=== PATIENT | female | born 1965 | race Caucasian/White ===

== ENCOUNTER 2016-06-04 07:46 | Emergency (ER) | payer MEDICAID ==
[2016-06-04] MEDS ORDERED: OXYCODONE-ACETAMINOPHEN 5-325 MG TABLET PO ONE ×2 (08:10→09:05)
--- NOTE | 2016-06-04 08:34 | ER Document Report ---
ED General - General Chief Complaint: Wrist Injury Stated Complaint: LEFT ARM PAIN Mode of Arrival: Medic Information source: Patient, Emergency Med Personnel Notes: Patient presents to the emergency department complaining of left wrist pain. Patient reports she had trouble sleeping all night. She was up this morning feeding her fish when she fell off her stool. Patient crying. Slurring her words, denies recent medication. EMS has splinted her wrist. Patient also complains of low back pain and abdominal pain. Patient reports she did not hit her head she did not have a change in LOC. No complaints of vomiting diarrhea. TRAVEL OUTSIDE OF THE [place] IN LAST 30 DAYS: No - HPI Onset: This morning Onset/Duration: Persistent Quality of pain: Achy, Pressure, Sharp Severity: Severe Pain Level: 5 Associated symptoms: None Exacerbated by: Movement Relieved by: Denies Similar symptoms previously: No Recently seen / treated by doctor: No - Related Data Allergies/Adverse Reactions: acetaminophen [From Tylenol] Allergy (Intermediate, Verified 04/06/16 19:03) Hives codeine [Codeine] Allergy (Unknown, Verified 04/06/16 19:03) ibuprofen [Ibuprofen] Allergy (Unknown, Verified 04/06/16 19:03) Penicillins Allergy (Unknown, Verified 04/06/16 19:03) sulfamethoxazole [From Bactrim] Allergy (Unknown, Verified 04/06/16 19:03) trimethoprim [From Bactrim] Allergy (Unknown, Verified 04/06/16 19:03) clarithromycin [From Biaxin] Allergy (Verified 04/06/16 19:03) hydrocodone [Hydrocodone] Allergy (Verified 04/06/16 19:03) ketorolac tromethamine [From Toradol] Allergy (Verified 04/06/16 19:03) morphine [Morphine] Allergy (Verified 04/06/16 19:03) Past Medical History - General Information source: Patient - Social History Smoking Status: Current Every Day Smoker Cigarette use (# per day): Yes - 1 ppd Frequency of alcohol use: None Drug Abuse: None Lives with: Family - father in law Family History: Reviewed & Not Pertinent - Past Medical History Cardiac Medical History: Reports: Hx Coronary Artery Disease - high chol , Hx Hypertension - no home meds Denies: Hx Heart Attack Pulmonary Medical History: Reports: Hx Bronchitis Denies: Hx Asthma, Hx COPD, Hx Pneumonia Neurological Medical History: Reports: Hx Cerebrovascular Accident - 2005, Hx Seizures - Musculoskeltal Medical History: Denies Hx Arthritis Psychiatric Medical History: Reports: Hx Anxiety - panic attacks, Hx Bipolar Disorder, Hx Depression Traumatic Medical History: Reports: Hx Fractures Past Surgical History: Reports: Hx Hysterectomy, Hx Orthopedic Surgery - rbka, Hx Tubal Ligation, Hx Vascular Surgery - Right leg arterial clot removal - Immunizations Immunizations up to date: No Hx Diphtheria, Pertussis, Tetanus Vaccination: Yes Review of Systems - Review of Systems Notes: Review HPI for review of systems., All other systems negative Physical Exam - Vital signs Vitals: Temp Pulse Resp BP Pulse Ox 97.7 F 71 18 127/66 H 99 06/04/16 08:10 06/04/16 08:10 06/04/16 08:10 06/04/16 08:10 06/04/16 08:10 - Notes Notes: PHYSICAL EXAMINATION: GENERAL: looks older than her age, crying, nontoxic looking HEAD: Atraumatic, normocephalic. EYES: Pupils equal round , extraocular movements intact, sclera anicteric, conjunctiva are normal. ENT: nares patent, . Moist mucous membranes. NECK: Normal range of motion, supple without lymphadenopathy LUNGS: CTAB and equal. No wheezes rales or rhonchi. HEART: Regular rate and rhythm without murmurs ABDOMEN: Soft, generalized tenderness. No guarding, no rebound EXTREMITIES: Normal range of motion, no pitting edema. No cyanosis. good radial pulse and cap refill to left wrist, no obvious deformity. Right BKA NEUROLOGICAL: Cranial nerves grossly intact. Normal sensory/motor PSYCH: Crying SKIN: Warm, Dry, normal turgor, no rashes or lesions noted Course - Re-evaluation Re-evalutation: 06/04/16 08:32 Patient observed sitting up, digging through her purse with her left wrist without crying without problems. Percocet cancelled, waiting for xray. 06/04/16 Pt was instructed on fracture. Dr Pillai's office contacted, pt's appointment had been canceled by her caregiver. I asked the office not to cancel the appointment and it was scheduled for 1115 today. Patient was instructed on pain medication. She reports 5 mg Percocet will not touch her pain. I instructed her to consult Dr. Pillai for further pain medication patient was also instructed to go directly to Dr. Pillai's office. sugartong splint and sling placed. She was very emotional, emotional support given patient escorted to the lobby where her ride picked her up. - Vital Signs Vital signs: Temp Pulse Resp BP Pulse Ox 97.6 F 62 18 113/80 97 06/04/16 09:59 06/04/16 09:59 06/04/16 09:59 06/04/16 09:59 06/04/16 09:59 - Diagnostic Test Radiology reviewed: Image reviewed, Reports reviewed - fx ulna/radius Procedures - Immobilization Left Wrist Pre-Proc Neuro Vasc Exam: Normal Immobilizer type: Sugar tong Performed by: PCT Post-Proc Neuro Vasc Exam: Unchanged from pre-exam Alignment checked and good: Yes Discharge - Discharge Clinical Impression: Left wrist pain, elevated blood pressure Radius/ulna fracture Qualifiers: Encounter type: initial encounter Fracture type: closed Laterality: left Qualified Code(s): S52.502A - Unspecified fracture of the lower end of left radius, initial encounter for closed fracture Condition: Stable Disposition: HOME, SELF-CARE Instructions: Ice & Elevation ([facility]), Fractured Radius and Ulna ([facility]), Splint Pending Casting ([facility]), Oral Narcotic Medication ([facility]) Additional Instructions: *You have been evaluated for left wrist pain, fractured ulna/radius *Maintain the splint and sling *Rest/Ice/Elevate *Follow up with Dr Pillai today at 1115 *Take medication as prescribed *Return to ED for worsening condition, changes, needs Prescriptions: Oxycodone HCl/Acetaminophen [Percocet 5-325 mg Tablet] 1 - 2 tab PO ASDIR PRN # 15 tablet PRN Reason: Forms: Elevated Blood Pressure, Smoking Cessation Education Referrals: RADHA ANTHONY MD [Primary Care Provider] - Follow up as needed ROSE PILLAI MD [ACTIVE STAFF] - 06/04/16 11:15 am
[2016-06-04 10:01] VITALS: BP 113/80
== END 2016-06-04 09:59 | disposition home or self-care (01) ==
LOC: ER 07:46
PROC: 2W3DX1Z Immobilization of Left Lower Arm using Splint (ICD-10-PCS; principal; 2016-06-04)
DX: S52.502A Unspecified fracture of the lower end of left radius, initial encounter for closed fracture (principal); S09.90XA Unspecified injury of head, initial encounter; M79.602 Pain in left arm; M54.5 Low back pain; R10.9 Unspecified abdominal pain; W07.XXXA Fall from chair, initial encounter; F17.210 Nicotine dependence, cigarettes, uncomplicated
CPT/HCPCS: 70450; 99284

== ENCOUNTER 2016-06-05 13:23 | Emergency (ER) | payer MEDICAID ==
--- NOTE | 2016-06-05 13:31 | ER Document Report ---
ED Medical Screen (RME) - General Stated Complaint: LEFT ARM STRAIN Mode of Arrival: Medic Information source: Patient Notes: Patient presents to the EMS with complaints of chronic abdominal pain. Patient was evaluated and treated here yesterday for fracture of the left wrist. Patient received prescription for Percocet yesterday but has already gone through them. TRAVEL OUTSIDE OF THE [place] IN LAST 30 DAYS: No - Related Data Allergies/Adverse Reactions: acetaminophen [From Tylenol] Allergy (Intermediate, Verified 04/06/16 19:03) Hives codeine [Codeine] Allergy (Unknown, Verified 04/06/16 19:03) ibuprofen [Ibuprofen] Allergy (Unknown, Verified 04/06/16 19:03) Penicillins Allergy (Unknown, Verified 04/06/16 19:03) sulfamethoxazole [From Bactrim] Allergy (Unknown, Verified 04/06/16 19:03) trimethoprim [From Bactrim] Allergy (Unknown, Verified 04/06/16 19:03) clarithromycin [From Biaxin] Allergy (Verified 04/06/16 19:03) hydrocodone [Hydrocodone] Allergy (Verified 04/06/16 19:03) ketorolac tromethamine [From Toradol] Allergy (Verified 04/06/16 19:03) morphine [Morphine] Allergy (Verified 04/06/16 19:03) Past Medical History - Past Medical History Cardiac Medical History: Reports: Hx Coronary Artery Disease - high chol , Hx Hypertension - no home meds Denies: Hx Heart Attack Pulmonary Medical History: Reports: Hx Bronchitis Denies: Hx Asthma, Hx COPD, Hx Pneumonia Neurological Medical History: Reports: Hx Cerebrovascular Accident - 2005, Hx Seizures - Musculoskeltal Medical History: Denies Hx Arthritis Psychiatric Medical History: Reports: Hx Anxiety - panic attacks, Hx Bipolar Disorder, Hx Depression Traumatic Medical History: Reports: Hx Fractures Past Surgical History: Reports: Hx Hysterectomy, Hx Orthopedic Surgery - rbka, Hx Tubal Ligation, Hx Vascular Surgery - Right leg arterial clot removal - Immunizations Immunizations up to date: No Hx Diphtheria, Pertussis, Tetanus Vaccination: Yes
[2016-06-05 14:16] LABS: ABSOLUTE LYMPHOCYTES (AUTO) 2.1 10^3/uL (0.5-4.7); HEMATOCRIT 42.6 % (36.0-47.0); HEMOGLOBIN 13.2 g/dL (12.0-15.5)
[2016-06-05 14:46] LABS: ALANINE AMINOTRANSFERASE 14 U/L (9-52); ALBUMIN 4.5 g/dL (3.5-5.0); ALKALINE PHOSPHATASE 75 U/L (38-126); ANION GAP 11 (5-19); ASPARTATE AMINO TRANSFERASE 24 U/L (14-36); BILIRUBIN,TOTAL 0.3 mg/dL (0.2-1.3); BLOOD UREA NITROGEN 12 mg/dL (7-20); CALCIUM 10.1 mg/dL (8.4-10.2); CARBON DIOXIDE 30 mmol/L (22-30); CHLORIDE 101 mmol/L (98-107); CREATININE RESULT 0.65 mg/dL (0.52-1.25); GLUCOSE 91 mg/dL (75-110); LIPASE 76.1 U/L (23-300); POTASSIUM 4.5 mmol/L (3.6-5.0); SODIUM 142.2 mmol/L (137-145); TOTAL PROTEIN 6.9 g/dL (6.3-8.2)
[2016-06-05 14:49] LABS: ABSOLUTE MONOCYTES (AUTO) 0.7 10^3/uL (0.1-1.4); ABSOLUTE NEUT (AUTO) 7.9 10^3/uL (1.7-8.2); BASOPHILS % (AUTO) 0.2 % (0-2); EOSINOPHILS % (AUTO) 0.1 % (0-6); LYMPHOCYTES % (AUTO) 19.4 % (13-45); MEAN CORPUSCULAR HEMOGLOBIN 30.8 pg (27.0-33.4); MEAN CORPUSCULAR VOLUME 100 fl (80-97); MONOCYTES % (AUTO) 6.6 % (3-13); RED BLOOD COUNT 4.28 10^6/uL (3.72-5.28); RED CELL DISTRIBUTION WIDTH 14.7 % (11.5-14.0); SEGMENTED NEUTROPHILS % (AUTO) 73.7 % (42-78); WHITE BLOOD COUNT 10.8 10^3/uL (4.0-10.5)
--- NOTE | 2016-06-05 16:37 | ER Document Report ---
ED General - General Chief Complaint: Arm Pain Stated Complaint: LEFT ARM STRAIN Mode of Arrival: Medic Notes: The patient is a 50-year-old female, past medical history chronic abdominal pain , opioid dependence, presents with her usual lower abdominal pain for the past several days. She says it is difficult to urinate and she has had this multiple times in the past. In addition, she is having left wrist pain after she fractured her wrist yesterday. She was given a prescription of 15 Percocet and followed up with the orthopedic surgeon yesterday. She took all her Percocet and is requesting more Percocet and Dilaudid. She has oxycodones at home. She denies numbness, tingling, back pain, nausea, vomiting, difficulty walking, saddle anesthesia, fevers or flank pain. TRAVEL OUTSIDE OF THE [place] IN LAST 30 DAYS: No - Related Data Allergies/Adverse Reactions: acetaminophen [From Tylenol] Allergy (Intermediate, Verified 06/05/16 13:35) Hives codeine [Codeine] Allergy (Unknown, Verified 06/05/16 13:35) ibuprofen [Ibuprofen] Allergy (Unknown, Verified 06/05/16 13:35) Penicillins Allergy (Unknown, Verified 06/05/16 13:35) sulfamethoxazole [From Bactrim] Allergy (Unknown, Verified 06/05/16 13:35) trimethoprim [From Bactrim] Allergy (Unknown, Verified 06/05/16 13:35) clarithromycin [From Biaxin] Allergy (Verified 06/05/16 13:35) hydrocodone [Hydrocodone] Allergy (Verified 06/05/16 13:35) ketorolac tromethamine [From Toradol] Allergy (Verified 06/05/16 13:35) morphine [Morphine] Allergy (Verified 06/05/16 13:35) Past Medical History - General Information source: Patient - Social History Smoking Status: Current Every Day Smoker Chew tobacco use (# tins/day): No Frequency of alcohol use: None Drug Abuse: None Family History: Reviewed & Not Pertinent Patient has suicidal ideation: No Patient has homicidal ideation: No - Past Medical History Cardiac Medical History: Reports: Hx Coronary Artery Disease - high chol , Hx Hypertension - no home meds Denies: Hx Heart Attack Pulmonary Medical History: Reports: Hx Bronchitis Denies: Hx Asthma, Hx COPD, Hx Pneumonia Neurological Medical History: Reports: Hx Cerebrovascular Accident - 2005, Hx Seizures - Renal/ Medical History: Denies: Hx Peritoneal Dialysis Musculoskeltal Medical History: Denies Hx Arthritis Psychiatric Medical History: Reports: Hx Anxiety - panic attacks, Hx Bipolar Disorder, Hx Depression Traumatic Medical History: Reports: Hx Fractures Past Surgical History: Reports: Hx Hysterectomy, Hx Orthopedic Surgery - rbka, Hx Tubal Ligation, Hx Vascular Surgery - Right leg arterial clot removal - Immunizations Immunizations up to date: No Hx Diphtheria, Pertussis, Tetanus Vaccination: Yes Review of Systems - Review of Systems Notes: REVIEW OF SYSTEMS: CONSTITUTIONAL: -fevers, -chills EENT: -eye pain, -difficulty swallowing, -nasal congestion CARDIOVASCULAR:-chest pain, -syncope. RESPIRATORY: -cough, -SOB GASTROINTESTINAL: +abdominal pain, -nausea, -vomiting, -diarrhea GENITOURINARY: -dysuria, -hematuria MUSCULOSKELETAL: -back pain, -neck pain, +left wrist pain SKIN: -rash or skin lesions. HEMATOLOGIC: -easy bruising or bleeding. LYMPHATIC: -swollen, enlarged glands. NEUROLOGICAL: -altered mental status or loss of consciousness, -headache, - neurologic symptoms PSYCHIATRIC: -anxiety, -depression. ALL OTHER SYSTEMS REVIEWED AND NEGATIVE. Physical Exam - Notes Notes: PHYSICAL EXAMINATION: GENERAL: Well-appearing, well-nourished. Crying. HEAD: Atraumatic, normocephalic. EYES: Pupils equal round and reactive to light, extraocular movements intact, sclera anicteric, conjunctiva are normal. ENT: nares patent, oropharynx clear without exudates. Moist mucous membranes. NECK: Normal range of motion, supple without lymphadenopathy LUNGS: Breath sounds clear to auscultation bilaterally and equal. No wheezes rales or rhonchi. HEART: Regular rate and rhythm without murmurs ABDOMEN: Soft, nontender, normoactive bowel sounds. No guarding, no rebound. No masses appreciated. EXTREMITIES: Left wrist in splint. Brisk capillary refill in left hand and no numbness or tingling. Normal range of motion, no pitting or edema. No cyanosis. NEUROLOGICAL: Cranial nerves grossly intact. Normal speech, normal gait. Normal sensory, motor, and reflex exams. PSYCH: Crying, screaming SKIN: Warm, Dry, normal turgor, no rashes or lesions noted. Course - Re-evaluation Re-evalutation: Patient has multiple visits for this same abdominal pain. She refused to provide a urine sample. Straight catheter offered, but she refused. She has followed up with orthopedics yesterday for her left wrist fracture. Looking through multiple prior visits, patient has been instructed that no opiates would be provided for chronic pain. A copy of her certified letter that was provided to her 04/2013 was once again given to the patient. Offered other pain relief modalities for her wrist pain, but patient stood up and stomped out of the emergency room screaming. No emergent issues identified at this time. Patient left prior to any discharge/AMA paperwork. - Laboratory Result Diagrams: 06/05/16 13:45 06/05/16 13:45 Laboratory results interpreted by me: 06/05/16 13:45 WBC 10.8 H MCV 100 H MCHC 31.0 L RDW 14.7 H Discharge - Discharge Clinical Impression: Chronic abdominal pain Condition: Stable Disposition: AGAINST MEDICAL ADVICE Referrals: RADHA ANTHONY MD [Primary Care Provider] - Follow up as needed
== END 2016-06-05 15:00 | disposition left against medical advice (07) ==
LOC: ER 13:23
DX: S62.102D Fracture of unspecified carpal bone, left wrist, subsequent encounter for fracture with routine healing (principal); M25.532 Pain in left wrist; X58.XXXD Exposure to other specified factors, subsequent encounter; G89.29 Other chronic pain; R10.30 Lower abdominal pain, unspecified; I25.10 Atherosclerotic heart disease of native coronary artery without angina pectoris; I10 Essential (primary) hypertension; F17.200 Nicotine dependence, unspecified, uncomplicated; Z79.891 Long term (current) use of opiate analgesic; Z88.6 Allergy status to analgesic agent; Z88.5 Allergy status to narcotic agent; Z88.0 Allergy status to penicillin; Z88.1 Allergy status to other antibiotic agents; Z88.8 Allergy status to other drugs, medicaments and biological substances; Z86.73 Personal history of transient ischemic attack (TIA), and cerebral infarction without residual deficits
CPT/HCPCS: 36415; 80053; 83690; 85025; 99283

== ENCOUNTER 2016-06-09 10:01 | Emergency (ER) | payer MEDICAID ==
--- NOTE | 2016-06-09 10:27 | ER Document Report ---
ED Medical Screen (RME) - General Stated Complaint: ARM/ABDOMINAL PAIN Mode of Arrival: Wheelchair Information source: Patient Notes: Patient presents complaining of lower abdominal pain for the past 3 months. Patient denies any significant change in her pain today. Patient additionally complains of left arm pain. Patient additionally states that she is requesting a cast be placed to her left upper extremity. Patient states that she has not been able to get in with orthopedic doctor because they need a referral and she states that her primary doctor see her. Patient states that she fell last night hitting her left arm. TRAVEL OUTSIDE OF THE [place] IN LAST 30 DAYS: No - Related Data Allergies/Adverse Reactions: acetaminophen [From Tylenol] Allergy (Intermediate, Verified 06/09/16 10:24) Hives codeine [Codeine] Allergy (Unknown, Verified 06/09/16 10:24) ibuprofen [Ibuprofen] Allergy (Unknown, Verified 06/09/16 10:24) Penicillins Allergy (Unknown, Verified 06/09/16 10:24) sulfamethoxazole [From Bactrim] Allergy (Unknown, Verified 06/09/16 10:24) trimethoprim [From Bactrim] Allergy (Unknown, Verified 06/09/16 10:24) clarithromycin [From Biaxin] Allergy (Verified 06/09/16 10:24) hydrocodone [Hydrocodone] Allergy (Verified 06/09/16 10:24) ketorolac tromethamine [From Toradol] Allergy (Verified 06/09/16 10:24) morphine [Morphine] Allergy (Verified 06/09/16 10:24) Past Medical History - Past Medical History Cardiac Medical History: Reports: Hx Coronary Artery Disease - high chol , Hx Hypertension - no home meds Denies: Hx Heart Attack Pulmonary Medical History: Reports: Hx Bronchitis Denies: Hx Asthma, Hx COPD, Hx Pneumonia Neurological Medical History: Reports: Hx Cerebrovascular Accident - 2005, Hx Seizures - Renal/ Medical History: Denies: Hx Peritoneal Dialysis Musculoskeltal Medical History: Denies Hx Arthritis Psychiatric Medical History: Reports: Hx Anxiety - panic attacks, Hx Bipolar Disorder, Hx Depression Traumatic Medical History: Reports: Hx Fractures Past Surgical History: Reports: Hx Hysterectomy, Hx Orthopedic Surgery - rbka, Hx Tubal Ligation, Hx Vascular Surgery - Right leg arterial clot removal - Immunizations Immunizations up to date: No Hx Diphtheria, Pertussis, Tetanus Vaccination: Yes Physical Exam - Vital signs Vitals: Temp Pulse Resp BP 98.2 F 64 22 H 115/61 06/09/16 10:22 06/09/16 10:22 06/09/16 10:22 06/09/16 10:22 - Abdominal Tenderness: Tender - Lower pelvic Course - Vital Signs Vital signs: Temp Pulse Resp BP Pulse Ox 98.2 F 64 22 H 115/61 06/09/16 10:22 06/09/16 10:22 06/09/16 10:22 06/09/16 10:22
[2016-06-09 12:10] LABS: ABSOLUTE BASOPHILS # (AUTO) 0.1 10^3/uL (0.0-0.2); ABSOLUTE EOSINOPHILS # (AUTO) 0.4 10^3/uL (0.0-0.6); ABSOLUTE LYMPHOCYTES (AUTO) 3.3 10^3/uL (0.5-4.7); ABSOLUTE MONOCYTES (AUTO) 0.7 10^3/uL (0.1-1.4); ABSOLUTE NEUT (AUTO) 7.7 10^3/uL (1.7-8.2); BASOPHILS % (AUTO) 0.5 % (0-2); HEMOGLOBIN 14.6 g/dL (12.0-15.5); HGB HCT DIFFERENCE -2.2; LYMPHOCYTES % (AUTO) 26.9 % (13-45); MEAN CORPUSCULAR HEMOGLOBIN 31.1 pg (27.0-33.4); MEAN CORPUSCULAR HGB CONC 31.7 g/dL (32.0-36.0); MEAN CORPUSCULAR VOLUME 98 fl (80-97); MONOCYTES % (AUTO) 6.2 % (3-13); RED BLOOD COUNT 4.68 10^6/uL (3.72-5.28); RED CELL DISTRIBUTION WIDTH 14.4 % (11.5-14.0); SEGMENTED NEUTROPHILS % (AUTO) 63.4 % (42-78); WHITE BLOOD COUNT 12.2 10^3/uL (4.0-10.5)
[2016-06-09 12:12] LABS: APPEARANCE,URINE CLEAR; BILIRUBIN,URINE NEGATIVE (NEGATIVE); GLUCOSE, URINE NEGATIVE (NEGATIVE); KETONES,URINE NEGATIVE (NEGATIVE); LEUKOCYTE ESTERASE,URINE NEGATIVE (NEGATIVE); NITRITE,URINE NEGATIVE (NEGATIVE); PROTEIN,URINE NEGATIVE (NEGATIVE); URINE SPECIFIC GRAVITY 1.004; UROBILINOGEN,URINE NEGATIVE mg/dL (<2.0)
[2016-06-09 12:28] LABS: ALANINE AMINOTRANSFERASE 24 U/L (9-52); ALBUMIN 4.4 g/dL (3.5-5.0); ALKALINE PHOSPHATASE 93 U/L (38-126); ANION GAP 13 (5-19); ASPARTATE AMINO TRANSFERASE 37 U/L (14-36); BILIRUBIN,TOTAL 0.5 mg/dL (0.2-1.3); BLOOD UREA NITROGEN 7 mg/dL (7-20); CALCIUM 10.5 mg/dL (8.4-10.2); CARBON DIOXIDE 29 mmol/L (22-30); CHLORIDE 100 mmol/L (98-107); CREATININE RESULT 0.62 mg/dL (0.52-1.25); GLUCOSE 92 mg/dL (75-110); LIPASE 40.5 U/L (23-300); POTASSIUM 4.8 mmol/L (3.6-5.0); SODIUM 141.5 mmol/L (137-145); TOTAL PROTEIN 7.2 g/dL (6.3-8.2)
--- NOTE | 2016-06-09 13:22 | ER Document Report ---
[id number] Mode of Arrival: Wheelchair Information source: Patient Notes: 50 yr old female hx of left forearm fracture in a splint presents with complaints of yet another fall with injury as well as chronic abd pain. pt denies any new abd pain. pt denies any fevers or chills, nausea TRAVEL OUTSIDE OF THE [place] IN LAST 30 DAYS: No - HPI Onset: Other Onset/Duration: Persistent Quality of pain: Achy Severity: Mild Pain Level: 1 Associated symptoms: None Exacerbated by: Movement Relieved by: Denies Similar symptoms previously: Yes Recently seen / treated by doctor: Yes - Related Data Allergies/Adverse Reactions: acetaminophen [From Tylenol] Allergy (Intermediate, Verified 06/09/16 10:24) Hives codeine [Codeine] Allergy (Unknown, Verified 06/09/16 10:24) ibuprofen [Ibuprofen] Allergy (Unknown, Verified 06/09/16 10:24) Penicillins Allergy (Unknown, Verified 06/09/16 10:24) sulfamethoxazole [From Bactrim] Allergy (Unknown, Verified 06/09/16 10:24) trimethoprim [From Bactrim] Allergy (Unknown, Verified 06/09/16 10:24) clarithromycin [From Biaxin] Allergy (Verified 06/09/16 10:24) hydrocodone [Hydrocodone] Allergy (Verified 06/09/16 10:24) ketorolac tromethamine [From Toradol] Allergy (Verified 06/09/16 10:24) morphine [Morphine] Allergy (Verified 06/09/16 10:24) Past Medical History - General Information source: Patient - Social History Smoking Status: Current Every Day Smoker Cigarette use (# per day): Yes Chew tobacco use (# tins/day): No Smoking Education Provided: Yes - Patient counselled regarding cessation for 4 minutes Frequency of alcohol use: None Drug Abuse: None Family History: Reviewed & Not Pertinent Patient has suicidal ideation: No Patient has homicidal ideation: No - Past Medical History Cardiac Medical History: Reports: Hx Coronary Artery Disease - high chol , Hx Hypertension - no home meds Denies: Hx Heart Attack Pulmonary Medical History: Reports: Hx Bronchitis Denies: Hx Asthma, Hx COPD, Hx Pneumonia Neurological Medical History: Reports: Hx Cerebrovascular Accident - 2005, Hx Seizures - Renal/ Medical History: Denies: Hx Peritoneal Dialysis Musculoskeltal Medical History: Denies Hx Arthritis Psychiatric Medical History: Reports: Hx Anxiety - panic attacks, Hx Bipolar Disorder, Hx Depression Traumatic Medical History: Reports: Hx Fractures Past Surgical History: Reports: Hx Hysterectomy, Hx Orthopedic Surgery - rbka, Hx Tubal Ligation, Hx Vascular Surgery - Right leg arterial clot removal - Immunizations Immunizations up to date: No Hx Diphtheria, Pertussis, Tetanus Vaccination: Yes Review of Systems - Review of Systems Notes: REVIEW OF SYSTEMS: CONSTITUTIONAL : Denies fever, chills, or sweats. Denies recent illness. EENT: Denies eye, ear, throat, or mouth pain or symptoms. Denies nasal or sinus congestion or discharge. Denies throat, tongue, or mouth swelling or difficulty swallowing. CARDIOVASCULAR: Denies chest pain. Denies palpitations or racing or irregular heart beat. Denies ankle edema. RESPIRATORY: Denies cough, cold, or chest congestion. Denies shortness of breath, difficulty breathing, or wheezing. GASTROINTESTINAL: Admits to chronic abdominal pain ongoing now for over one year no change GENITOURINARY: Denies difficulty urinating, painful urination, burning, frequency, blood in urine, or discharge. FEMALE GENITOURINARY: Denies vaginal bleeding, heavy or abnormal periods, irregular periods. Denies vaginal discharge or odor. MUSCULOSKELETAL: Admits to left wrist pain SKIN: Denies rash, lesions or sores. HEMATOLOGIC : Denies easy bruising or bleeding. LYMPHATIC: Denies swollen, enlarged glands. NEUROLOGICAL: Denies confusion or altered mental status. Denies passing out or loss of consciousness. Denies dizziness or lightheadedness. Denies headache. Denies weakness or paralysis or loss of use of either side. Denies problems with gait or speech. Denies sensory loss, numbness, or tingling. Denies seizures. PSYCHIATRIC: Denies anxiety or stress. Denies depression, suicidal ideation, or homicidal ideation. ALL OTHER SYSTEMS REVIEWED AND NEGATIVE. Dictation was performed using [employer] voice recognition software PHYSICAL EXAMINATION: GENERAL: Well-appearing, well-nourished and in no acute distress. HEAD: Atraumatic, normocephalic. EYES: Pupils equal round and reactive to light, extraocular movements intact, conjunctiva are normal. ENT: Nares patent, oropharynx clear without exudates. Moist mucous membranes. NECK: Normal range of motion, supple without lymphadenopathy LUNGS: Breath sounds clear to auscultation bilaterally and equal. No wheezes rales or rhonchi. HEART: Regular rate and rhythm without murmurs ABDOMEN: Soft, nontender, nondistended abdomen. No guarding, no rebound. No masses appreciated. Female : deferred Musculoskeletal: Left arm in splint, right BKA NEUROLOGICAL: Cranial nerves grossly intact. Normal speech, normal gait. Normal sensory, motor exams PSYCH: Normal mood, normal affect. SKIN: Warm, Dry, normal turgor, no rashes or lesions noted. Physical Exam - Vital signs Vitals: Temp Pulse Resp BP 98.2 F 64 22 H 115/61 06/09/16 10:22 06/09/16 10:22 06/09/16 10:22 06/09/16 10:22 Course - Re-evaluation Re-evalutation: 06/09/16 13:[address] Pillai, he states that since the arm is in a splint no margin evaluations required at this time, he will be more than glad to see the patient in his office, I will place follow up with patients orthopedic physician Patient has been instructed that narcotics are not appropriate in the emergency department given the chronic pain that she is having. She does have follow-up with pain specialist 06/09/16 13:39 Patient is very happy with this plan and wishes to be discharged immediately After performing a Medical Screening Examination, I estimate there is LOW risk for ACUTE APPENDICITIS, BOWEL OBSTRUCTION, ACUTE CHOLECYSTITIS, PERFORATED DIVERTICULITIS, INCARCERATED HERNIA, PANCREATITIS, PELVIC INFLAMMATORY DISEASE, PERFORATED ULCER, ECTOPIC , or TUBO-OVARIAN ABSCESS, thus I consider the discharge disposition reasonable. Also, there is no evidence or peritonitis , sepsis, or toxicity. The patient and I have discussed the diagnosis and risks , and we agree with discharging home with close follow-up with the understanding that symptoms and presentations can change. We also discussed returning to the Emergency Department immediately if new or worsening symptoms occur. We have discussed the symptoms which are most concerning (e.g., bloody stool, fever, changing or worsening pain, vomiting) that necessitate immediate return. 06/09/16 19:16 - Vital Signs Vital signs: Temp Pulse Resp BP Pulse Ox 97.8 F 44 L 18 133/80 H 99 06/09/16 13:46 06/09/16 13:46 06/09/16 13:46 06/09/16 13:46 06/09/16 13:46 - Laboratory Result Diagrams: 06/09/16 11:45 06/09/16 11:45 Laboratory results interpreted by me: 06/09/16 06/09/16 11:45 11:45 WBC 12.2 H MCV 98 H MCHC 31.7 L RDW 14.4 H Calcium 10.5 H AST 37 H - Diagnostic Test Radiology reviewed: Image reviewed, Reports reviewed Discharge - Discharge Clinical Impression: Left wrist pain, Chronic abdominal pain, Encounter for smoking cessation counseling Radius/ulna fracture Qualifiers: Encounter type: initial encounter Fracture type: closed Laterality: left Qualified Code(s): S52.502A - Unspecified fracture of the lower end of left radius, initial encounter for closed fracture Condition: Stable Disposition: HOME, SELF-CARE Instructions: Abdominal Pain ([facility]) Referrals: RADHA ANTHONY MD [Primary Care Provider] - Follow up as needed ROSE PILLAI MD [ACTIVE STAFF] - 06/09/16
[2016-06-09 13:50] VITALS: BP 133/80
== END 2016-06-09 13:50 | disposition home or self-care (01) ==
LOC: ER 10:01
DX: S52.502A Unspecified fracture of the lower end of left radius, initial encounter for closed fracture (principal); M25.532 Pain in left wrist; G89.29 Other chronic pain; R10.9 Unspecified abdominal pain; F17.210 Nicotine dependence, cigarettes, uncomplicated; W19.XXXA Unspecified fall, initial encounter; Z88.6 Allergy status to analgesic agent; Z88.0 Allergy status to penicillin; Z88.3 Allergy status to other anti-infective agents
CPT/HCPCS: 36415; 80053; 81001; 83690; 85025; 99284

== ENCOUNTER 2016-07-07 11:16 | Emergency (ER) | payer MEDICAID ==
[2016-07-07 11:24] VITALS: BP 110/57
== END 2016-07-07 11:25 | disposition left against medical advice (07) ==
LOC: ER 11:16
DX: Z53.21 Procedure and treatment not carried out due to patient leaving prior to being seen by health care provider (principal)

== ENCOUNTER 2016-07-08 10:23 | Emergency (ER) | payer MEDICAID ==
--- NOTE | 2016-07-08 10:40 | ER Document Report ---
ED Medical Screen (RME) - General Stated Complaint: ARM INJURY Notes: 50 yo female c/o left hand, wrist pain. pt fell yesterday and injured arm. TRAVEL OUTSIDE OF THE [place] IN LAST 30 DAYS: No - Related Data Allergies/Adverse Reactions: acetaminophen [From Tylenol] Allergy (Intermediate, Verified 06/09/16 10:24) Hives codeine [Codeine] Allergy (Unknown, Verified 06/09/16 10:24) ibuprofen [Ibuprofen] Allergy (Unknown, Verified 06/09/16 10:24) Penicillins Allergy (Unknown, Verified 06/09/16 10:24) sulfamethoxazole [From Bactrim] Allergy (Unknown, Verified 06/09/16 10:24) trimethoprim [From Bactrim] Allergy (Unknown, Verified 06/09/16 10:24) clarithromycin [From Biaxin] Allergy (Verified 06/09/16 10:24) hydrocodone [Hydrocodone] Allergy (Verified 06/09/16 10:24) ketorolac tromethamine [From Toradol] Allergy (Verified 06/09/16 10:24) morphine [Morphine] Allergy (Verified 06/09/16 10:24) Past Medical History - Past Medical History Cardiac Medical History: Reports: Hx Coronary Artery Disease - high chol , Hx Hypertension - no home meds Denies: Hx Heart Attack Pulmonary Medical History: Reports: Hx Bronchitis Denies: Hx Asthma, Hx COPD, Hx Pneumonia Neurological Medical History: Reports: Hx Cerebrovascular Accident - 2005, Hx Seizures - Renal/ Medical History: Denies: Hx Peritoneal Dialysis Musculoskeltal Medical History: Denies Hx Arthritis Psychiatric Medical History: Reports: Hx Anxiety - panic attacks, Hx Bipolar Disorder, Hx Depression Traumatic Medical History: Reports: Hx Fractures Past Surgical History: Reports: Hx Hysterectomy, Hx Orthopedic Surgery - rbka, Hx Tubal Ligation, Hx Vascular Surgery - Right leg arterial clot removal - Immunizations Immunizations up to date: No Hx Diphtheria, Pertussis, Tetanus Vaccination: Yes Physical Exam - Vital signs Vitals: Temp Pulse Resp BP Pulse Ox 98.5 F 80 20 115/78 96 07/08/16 10:27 07/08/16 10:27 07/08/16 10:27 07/08/16 10:27 07/08/16 10:27 Course - Vital Signs Vital signs: Temp Pulse Resp BP Pulse Ox 98.5 F 80 20 115/78 96 07/08/16 10:27 07/08/16 10:27 07/08/16 10:27 07/08/16 10:27 07/08/16 10:27
--- NOTE | 2016-07-08 11:25 | ER Document Report ---
HPI - HPI Patient complains to provider of: fell on broken wrist again Onset: Yesterday Onset/Duration: Sudden Quality of pain: Achy Pain Level: 5 Context: 50-year-old female who drinks alcohol fell when she got up high to try to clean her fish tank re-injuring her left wrist. She fractured it originally June [address] Olivera who took her cast off on Wednesday. To her left wrist Associated Symptoms: None Exacerbated by: Movement Relieved by: Denies Similar symptoms previously: No Recently seen / treated by doctor: No - ROS ROS below otherwise negative: Yes Systems Reviewed and Negative: Yes All other systems reviewed and negative - REPRODUCTIVE LMP: hyst Reproductive: DENIES: : - DERM Skin Color: Normal Past Medical History - General Information source: Patient - Social History Smoking Status: Current Every Day Smoker Chew tobacco use (# tins/day): No Frequency of alcohol use: Heavy Drug Abuse: None Lives with: Parents Family History: Reviewed & Not Pertinent Patient has suicidal ideation: No Patient has homicidal ideation: No - Past Medical History Cardiac Medical History: Reports: Hx Coronary Artery Disease - high chol , Hx Hypertension - no home meds Pulmonary Medical History: Reports: Hx Bronchitis Neurological Medical History: Reports: Hx Cerebrovascular Accident - 2005, Hx Seizures - Renal/ Medical History: Denies: Hx Peritoneal Dialysis Psychiatric Medical History: Reports: Hx Anxiety - panic attacks, Hx Bipolar Disorder, Hx Depression Traumatic Medical History: Reports: Hx Fractures Past Surgical History: Reports: Hx Hysterectomy, Hx Orthopedic Surgery - rbka, Hx Tubal Ligation, Hx Vascular Surgery - Right leg arterial clot removal - Immunizations Immunizations up to date: No Hx Diphtheria, Pertussis, Tetanus Vaccination: Yes Vertical Provider Document - CONSTITUTIONAL Agree With Documented VS: Yes Exam Limitations: No Limitations - INFECTION CONTROL TRAVEL OUTSIDE OF THE [place] IN LAST 30 DAYS: No - HEENT HEENT: Normocephalic - NECK Neck: Supple - RESPIRATORY Respiratory: Breath Sounds Normal, No Respiratory Distress O2 Sat by Pulse Oximetry: 96 - CARDIOVASCULAR Cardiovascular: Regular Rate, Regular Rhythm - GI/ABDOMEN Gastrointestinal: Abdomen Soft, Abdomen Non-Tender, No Organomegaly - MUSCULOSKELETAL/EXTREMETIES Musculoskeletal/Extremeties: Tender - swelling /tender over the distal radius, Edema - left wrist - NEURO Level of Consciousness: Awake, Alert Motor/Sensory: No Motor Deficit, No Sensory Deficit - DERM Integumentary: Warm, Dry Course - Re-evaluation Re-evalutation: 07/08/16 11:31 xray shows some healing from the origianl fx 06-09-16 - Vital Signs Vital signs: Temp Pulse Resp BP Pulse Ox 98.5 F 80 20 115/78 96 07/08/16 10:27 07/08/16 10:27 07/08/16 10:27 07/08/16 10:27 07/08/16 10:27 Procedures - Immobilization Left Wrist Time completed: 12:01 Pre-Proc Neuro Vasc Exam: Normal Immobilizer type: Volar splint Performed by: PCT Post-Proc Neuro Vasc Exam: Normal Alignment checked and good: Yes Discharge - Discharge Clinical Impression: re-injured her left radius fracture Condition: Good Disposition: HOME, SELF-CARE Instructions: Temporary Splint ([facility]), Splint Precautions ([facility]), Temporary Sling ([facility]) Additional Instructions: call and schedule appt with the orthopedic group keep the splint on no alcohol ride home with your spouse to er any concerns Prescriptions: Tramadol HCl [Ultram 50 mg Tablet] 50 mg PO ASDIR PRN #20 tablet PRN Reason: Referrals: TEAGAN WYNN MD [ACTIVE STAFF] - Follow up tomorrow
[2016-07-08 12:08] VITALS: BP 128/61
== END 2016-07-08 12:09 | disposition home or self-care (01) ==
LOC: ER 10:23
PROC: 2W3DX1Z Immobilization of Left Lower Arm using Splint (ICD-10-PCS; principal; 2016-07-08)
DX: S52.92XD Unspecified fracture of left forearm, subsequent encounter for closed fracture with routine healing (principal); W17.89XD Other fall from one level to another, subsequent encounter; F17.200 Nicotine dependence, unspecified, uncomplicated; E78.00 Pure hypercholesterolemia, unspecified; Z86.73 Personal history of transient ischemic attack (TIA), and cerebral infarction without residual deficits; Z90.710 Acquired absence of both cervix and uterus; Z89.511 Acquired absence of right leg below knee; Z98.51 Tubal ligation status
CPT/HCPCS: 99283

== ENCOUNTER 2016-07-30 12:52 | Emergency (ER) | payer MEDICAID ==
[2016-07-30] MEDS ORDERED: NALOXONE HCL INJ 2 MG/2 ML DISP.SYRIN IV ONE (13:01)
[2016-07-30] MEDS: NORMAL SALINE 1000 ML 1,000 ML IV PRN ×2 (13:11→14:44)
[2016-07-30 13:35] LABS: ABSOLUTE EOSINOPHILS # (AUTO) 0.8 10^3/uL (0.0-0.6); ABSOLUTE LYMPHOCYTES (AUTO) 1.9 10^3/uL (0.5-4.7); ABSOLUTE MONOCYTES (AUTO) 0.6 10^3/uL (0.1-1.4); ABSOLUTE NEUT (AUTO) 5.9 10^3/uL (1.7-8.2); BASOPHILS % (AUTO) 0.4 % (0-2); EOSINOPHILS % (AUTO) 9.1 % (0-6); HEMATOCRIT 39.7 % (36.0-47.0); HEMOGLOBIN 13.1 g/dL (12.0-15.5); HGB HCT DIFFERENCE -0.4; LYMPHOCYTES % (AUTO) 20.1 % (13-45); MEAN CORPUSCULAR HEMOGLOBIN 32.4 pg (27.0-33.4); MEAN CORPUSCULAR HGB CONC 33.1 g/dL (32.0-36.0); MEAN CORPUSCULAR VOLUME 98 fl (80-97); RED BLOOD COUNT 4.05 10^6/uL (3.72-5.28); RED CELL DISTRIBUTION WIDTH 15.2 % (11.5-14.0); SEGMENTED NEUTROPHILS % (AUTO) 63.4 % (42-78); WHITE BLOOD COUNT 9.3 10^3/uL (4.0-10.5)
[2016-07-30 13:56] LABS: ALANINE AMINOTRANSFERASE 25 U/L (9-52); ALBUMIN 4.1 g/dL (3.5-5.0); ALKALINE PHOSPHATASE 75 U/L (38-126); ANION GAP 9 (5-19); ASPARTATE AMINO TRANSFERASE 27 U/L (14-36); BILIRUBIN,TOTAL 0.2 mg/dL (0.2-1.3); BLOOD UREA NITROGEN 17 mg/dL (7-20); CALCIUM 9.7 mg/dL (8.4-10.2); CARBON DIOXIDE 25 mmol/L (22-30); CHLORIDE 105 mmol/L (98-107); CREATINE KINASE 47 U/L (30-135); CREATININE RESULT 0.59 mg/dL (0.52-1.25); GLUCOSE 94 mg/dL (75-110); POTASSIUM 4.2 mmol/L (3.6-5.0); SODIUM 139.4 mmol/L (137-145); TOTAL PROTEIN 6.4 g/dL (6.3-8.2)
[2016-07-30 13:59] LABS: ALCOHOL < 10 mg/dL (NONE DETECTED)
[2016-07-30 14:06] LABS: CREATINE KINASE MB 0.23 ng/mL (<4.55); TROPONIN I < 0.012 ng/mL
[2016-07-30 15:20] LABS: APPEARANCE,URINE CLEAR; BILIRUBIN,URINE NEGATIVE (NEGATIVE); GLUCOSE, URINE NEGATIVE (NEGATIVE); KETONES,URINE NEGATIVE (NEGATIVE); LEUKOCYTE ESTERASE,URINE NEGATIVE (NEGATIVE); NITRITE,URINE NEGATIVE (NEGATIVE); PROTEIN,URINE NEGATIVE (NEGATIVE); URINE SPECIFIC GRAVITY 1.004; UROBILINOGEN,URINE NEGATIVE mg/dL (<2.0)
[2016-07-30 15:34] LABS: URINE BARBITURATES SCREEN NEGATIVE; URINE METHADONE SCREEN NEGATIVE; URINE OPIATES LOW NEGATIVE; URINE PHENCYCLIDINE SCREEN NEGATIVE
--- NOTE | 2016-07-30 18:05 | ER Document Report ---
ED General - General Chief Complaint: Possible Overdose Stated Complaint: ALTERED MENTAL STATUS Time seen by provider: 12:45 Mode of Arrival: Medic Information source: Patient Notes: 50-year-old female who seemed to be confused while walking in the store this morning and then sat down on the floor and became unresponsive. Store personnel concern to call EMS. EMS personnel report that she had an empty bottle of Ambien 10 mg total of 15 was filled on the first. She also bottle of lorazepam filled July 01 appeared to have an appropriate amount remaining. Patient arrives somnolent and cannot provide history. Physical Exam: General: Crohn's to pain. She protects her airway well HEENT: Normocephalic. Atraumatic. PERRLA. 2 mm Extraocular movements intact. No pinpoint pupils Oropharynx clear. Neck: Supple. Non-tender. No JVD Respiratory: No respiratory distress. Clear and equal breath sounds bilaterally. Cardiovascular: Regular rate and rhythm. Abdominal: Normal Inspection. Soft, non-tender. No distension. Normal Bowel Sounds. Back: Non-tender. No deformity or step off. Extremities: Moves all four extremities. Upper extremities: Normal inspection. Non-tender. Normal color. Normal ROM. Normal temperature. Left lower extremity warm to plus pulses. Right lower extremity amputated site appears healthy Neurological: Patient does move all 4 extremities spontaneously but cannot cooperate with formal neurologic testing. Psychological: Lethargic Skin: Warm. Dry. Normal color. TRAVEL OUTSIDE OF THE [place] IN LAST 30 DAYS: No - Related Data Allergies/Adverse Reactions: acetaminophen [From Tylenol] Allergy (Intermediate, Verified 06/09/16 10:24) Hives codeine [Codeine] Allergy (Unknown, Verified 06/09/16 10:24) ibuprofen [Ibuprofen] Allergy (Unknown, Verified 06/09/16 10:24) Penicillins Allergy (Unknown, Verified 06/09/16 10:24) sulfamethoxazole [From Bactrim] Allergy (Unknown, Verified 06/09/16 10:24) trimethoprim [From Bactrim] Allergy (Unknown, Verified 06/09/16 10:24) clarithromycin [From Biaxin] Allergy (Verified 06/09/16 10:24) hydrocodone [Hydrocodone] Allergy (Verified 06/09/16 10:24) ketorolac tromethamine [From Toradol] Allergy (Verified 06/09/16 10:24) morphine [Morphine] Allergy (Verified 06/09/16 10:24) Past Medical History - General Cannot obtain history due to: Altered mental status - Social History Smoking Status: Unknown if Ever Smoked Family History: Other - Unknown - Past Medical History Cardiac Medical History: Reports: Hx Coronary Artery Disease - high chol , Hx Hypertension - no home meds Denies: Hx Heart Attack Pulmonary Medical History: Reports: Hx Bronchitis Denies: Hx Asthma, Hx COPD, Hx Pneumonia Neurological Medical History: Reports: Hx Cerebrovascular Accident - 2005, Hx Seizures - Renal/ Medical History: Denies: Hx Peritoneal Dialysis Musculoskeltal Medical History: Denies Hx Arthritis Psychiatric Medical History: Reports: Hx Anxiety - panic attacks, Hx Bipolar Disorder, Hx Depression Traumatic Medical History: Reports: Hx Fractures Past Surgical History: Reports: Hx Hysterectomy, Hx Orthopedic Surgery - rbka, Hx Tubal Ligation, Hx Vascular Surgery - Right leg arterial clot removal - Immunizations Immunizations up to date: No Hx Diphtheria, Pertussis, Tetanus Vaccination: Yes Review of Systems - Review of Systems -: Yes ROS unobtainable due to patient's medical condition Physical Exam - Vital signs Vitals: Resp Pulse Ox 19 95 07/30/16 13:05 07/30/16 13:05 Course - Re-evaluation Re-evalutation: 07/30/16 18:09 After observation in her for several hours patient becomes more alert. He denies suicidal or homicidal ideation she denies audiovisual hallucinations she says she did not take extra Ambien or anything else and has not attempted an overdose. She does state that she has bilateral lower abdominal pain that she says it been present for months and has not changed recently. She says she has seen a physician for this in the past but doesn't know her diagnosis. She denies any recent fever, chills, nausea, vomiting, cough, shortness of breath, chest pain, or back pain. She does easily drifts off to sleep again and no believe she is safe for discharge and she will be kept for further observation and emergency department 07/30/16 20:38 Patient is now awake. On exam her abdomen is soft nontender nondistended no guarding rebound rigidity. She is safe for discharge with a diagnosis of altered mental status. I suspect excessive Ambien use but she denies this she' s remained hemodynamically stable with no respiratory compromise during her stay - Vital Signs Vital signs: Temp Pulse Resp BP Pulse Ox 20 110/60 96 07/30/16 17:01 07/30/16 19:16 07/30/16 19:16 - Laboratory Result Diagrams: 07/30/16 13:15 07/30/16 13:15 Laboratory results interpreted by me: 07/30/16 07/30/16 07/30/16 13:15 13:15 13:15 MCV 98 H RDW 15.2 H Eosinophils % 9.1 H Absolute Eosinophils 0.8 H Ammonia < 8.7 L Salicylates < 1.0 L Acetaminophen < 10 L - Diagnostic Test Radiology reviewed: Image reviewed, Reports reviewed - EKG Interpretation by Me Additional EKG results interpreted by me: 07/30/16 18:09 EKG reviewed by myself sinus rhythm at 76 occasional PVC no significant change compared to 04/07/2016 Discharge - Discharge Clinical Impression: Altered mental status Qualifiers: Altered mental status type: somnolence Qualified Code(s): R40.0 - Somnolence Condition: Stable Disposition: HOME, SELF-CARE Additional Instructions: Depression Your evaluation reveals that you have mental depression. While symptoms may be vague, they often include disturbance of sleep, fatigue, loss of appetite , and general loss of interest in life. While depression may be a side effect of drugs, or a reaction to a major change in your life, many cases have no known cause. If depression is acute, and related to a major loss in your life, you can expect it to clear completely with time. If you have been depressed a long time , are prone to repeated bouts of depression or low mood, or have been thinking of suicide, get help. Depression can be treated with anti-depressant medication and counselling. Long-term depression will often take a few weeks to clear, even with appropriate medication. Follow-up care is important. Contact your physician, the hospital emergency center, crisis line, or your counsellor if you are losing control or having self-destructive thoughts. Referrals: [facility] [Provider Group] - Follow up tomorrow
--- NOTE | 2016-07-30 20:04 | EKG REPORT ---
SEVERITY:- ABNORMAL ECG - SINUS RHYTHM VENTRICULAR BIGEMINY PROBABLE LEFT ATRIAL ABNORMALITY : Confirmed by: Lilian Ralph 30-Jul-2016 20:03:23
[2016-07-30 22:33] VITALS: BP 111/81
== END 2016-07-30 22:44 | disposition home or self-care (01) ==
LOC: ER 12:52
DX: R40.0 Somnolence (principal); I49.3 Ventricular premature depolarization; R10.30 Lower abdominal pain, unspecified; I25.10 Atherosclerotic heart disease of native coronary artery without angina pectoris; I10 Essential (primary) hypertension; Z88.6 Allergy status to analgesic agent; Z88.5 Allergy status to narcotic agent; Z88.0 Allergy status to penicillin; Z88.1 Allergy status to other antibiotic agents; Z88.8 Allergy status to other drugs, medicaments and biological substances; Z86.73 Personal history of transient ischemic attack (TIA), and cerebral infarction without residual deficits
CPT/HCPCS: 93005; 99285; 96361; 51701; 96374; 36415; 87086; 82553; 80307 ×4; 82140; 82550; 83605; 83735; 85025; 80053; 81001; 84484; 71010; 70450; 93010; J2310; J7030

== ENCOUNTER → 2016-09-09 | Outpatient (CLI) | payer MEDICAID | LOC: WI 08:06 | PROVIDERS: ATTEND Family Medicine | DX: M85.88 Other specified disorders of bone density and structure, other site (principal) | CPT/HCPCS: 77080 ==

== ENCOUNTER 2016-10-07 03:18 | Emergency (ER) | payer MEDICAID ==
[2016-10-07 03:38] VITALS: BP 147/59
[2016-10-07] MEDS ORDERED: ACETAMINOPHEN 325 MG TABLET PO ONE (03:51)
[2016-10-07] MEDS ORDERED: HYDROCODONE/ACETAMINOPHEN 5-325 MG TABLET ONE (09:23)
[2016-10-07] MEDS ORDERED: NAPROXEN 250 MG TABLET ONE (09:25)
== END 2016-10-07 09:31 | disposition home or self-care (01) ==
LOC: ER 03:18
DX: M25.461 Effusion, right knee (principal); W18.30XA Fall on same level, unspecified, initial encounter; Z89.511 Acquired absence of right leg below knee; Z86.718 Personal history of other venous thrombosis and embolism; Z88.0 Allergy status to penicillin; Z88.3 Allergy status to other anti-infective agents; Z88.6 Allergy status to analgesic agent
CPT/HCPCS: 99284; 73502; 73560; J3490 ×2

== ENCOUNTER 2017-01-03 11:27 | Emergency (ER) | payer MEDICAID ==
[2017-01-03] MEDS ORDERED: TRAMADOL HCL 50 MG TABLET PO ONE (11:36)
--- NOTE | 2017-01-03 11:41 | ER Document Report ---
ED General - General Stated Complaint: FALL/RIB PAIN Time Seen by Provider: 01/03/17 11:30 Mode of Arrival: Medic Information source: Patient Notes: 51 yr old female presents with complaints of a fall, pt denies any fevers or chills, noted ot have left foot pain , right rib pain. Pt is on eliquis for hx of dvt. Pt has had a right bka . pt ntoes todays fall was mechanical. TRAVEL OUTSIDE OF THE [place] IN LAST 30 DAYS: No - HPI Onset: Just prior to arrival Onset/Duration: Sudden Quality of pain: Achy Severity: Mild Pain Level: 1 Associated symptoms: Body/muscle aches Exacerbated by: Movement Relieved by: Denies Similar symptoms previously: Yes Recently seen / treated by doctor: No - Related Data Allergies/Adverse Reactions: codeine [Codeine] Allergy (Unknown, Verified 06/09/16 10:24) ibuprofen [Ibuprofen] Allergy (Unknown, Verified 06/09/16 10:24) Penicillins Allergy (Unknown, Verified 06/09/16 10:24) sulfamethoxazole [From Bactrim] Allergy (Unknown, Verified 06/09/16 10:24) trimethoprim [From Bactrim] Allergy (Unknown, Verified 06/09/16 10:24) clarithromycin [From Biaxin] Allergy (Verified 06/09/16 10:24) hydrocodone [Hydrocodone] Allergy (Verified 06/09/16 10:24) ketorolac tromethamine [From Toradol] Allergy (Verified 06/09/16 10:24) morphine [Morphine] Allergy (Verified 06/09/16 10:24) Home Medications: Current Home Medications Albuterol Sulfate [Proair Hfa Inhalation Aerosol 8.5 gm Mdi] 1 puff IH Q4 PRN [History] Alendronate Sodium [Fosamax 70 mg Tablet] 70 mg PO DAILY 01/03/17 [History] Atorvastatin Calcium [Lipitor 40 mg Tablet] 40 mg PO DAILY 01/03/17 [History] Brexpiprazole [Rexulti] 2 mg PO DAILY 01/03/17 [History] Budesonide/Formoterol Fumarate [Symbicort Hfa 160-4.5 Mcg Inhaler 6 gm] 1 puff IH Q12 01/03/17 [History] Fluticasone Propionate [Flonase Nasal [place] 50 Mcg/[place] 16 gm] 1 spray NASL Q12 01/03/17 [History] Trazodone HCl 150 mg PO DAILY 01/03/17 [History] Past Medical History - Social History Smoking Status: Current Every Day Smoker Cigarette use (# per day): Yes Chew tobacco use (# tins/day): No Smoking Education Provided: No Family History: Reviewed & Not Pertinent, Other - Unknown - Past Medical History Cardiac Medical History: Reports: Hx Coronary Artery Disease - high chol , Hx Hypertension - no home meds Denies: Hx Heart Attack Pulmonary Medical History: Reports: Hx Bronchitis Denies: Hx Asthma, Hx COPD, Hx Pneumonia Neurological Medical History: Reports: Hx Cerebrovascular Accident - 2005, Hx Seizures - Renal/ Medical History: Denies: Hx Peritoneal Dialysis Musculoskeltal Medical History: Denies Hx Arthritis Psychiatric Medical History: Reports: Hx Anxiety - panic attacks, Hx Bipolar Disorder, Hx Depression Traumatic Medical History: Reports: Hx Fractures Past Surgical History: Reports: Hx Hysterectomy, Hx Orthopedic Surgery - rbka, Hx Tubal Ligation, Hx Vascular Surgery - Right leg arterial clot removal - Immunizations Immunizations up to date: No Hx Diphtheria, Pertussis, Tetanus Vaccination: Yes Review of Systems - Review of Systems Notes: REVIEW OF SYSTEMS: CONSTITUTIONAL : Denies fever, chills, or sweats. Denies recent illness. EENT: Denies eye, ear, throat, or mouth pain or symptoms. Denies nasal or sinus congestion or discharge. Denies throat, tongue, or mouth swelling or difficulty swallowing. CARDIOVASCULAR: Denies chest pain. Denies palpitations or racing or irregular heart beat. Denies ankle edema. RESPIRATORY: Denies cough, cold, or chest congestion. Denies shortness of breath, difficulty breathing, or wheezing. GASTROINTESTINAL: Denies abdominal pain or distention. Denies nausea, vomiting , or diarrhea. Denies blood in vomitus, stools, or per rectum. Denies black, tarry stools. Denies constipation. GENITOURINARY: Denies difficulty urinating, painful urination, burning, frequency, blood in urine, or discharge. FEMALE GENITOURINARY: Denies vaginal bleeding, heavy or abnormal periods, irregular periods. Denies vaginal discharge or odor. MUSCULOSKELETAL: left foot pain at toes , right rib pain SKIN: Denies rash, lesions or sores. HEMATOLOGIC : Denies easy bruising or bleeding. LYMPHATIC: Denies swollen, enlarged glands. NEUROLOGICAL: Denies confusion or altered mental status. Denies passing out or loss of consciousness. Denies dizziness or lightheadedness. Denies headache. Denies weakness or paralysis or loss of use of either side. Denies problems with gait or speech. Denies sensory loss, numbness, or tingling. Denies seizures. PSYCHIATRIC: Denies anxiety or stress. Denies depression, suicidal ideation, or homicidal ideation. ALL OTHER SYSTEMS REVIEWED AND NEGATIVE. PHYSICAL EXAMINATION: GENERAL: Well-appearing, well-nourished and in no acute distress. HEAD: Atraumatic, normocephalic. EYES: Pupils equal round and reactive to light, extraocular movements intact, conjunctiva are normal. ENT: Nares patent, oropharynx clear without exudates. Moist mucous membranes. NECK: Normal range of motion, supple without lymphadenopathy LUNGS: Breath sounds clear to auscultation bilaterally and equal. No wheezes rales or rhonchi. HEART: Regular rate and rhythm without murmurs ABDOMEN: Soft, nontender, nondistended abdomen. No guarding, no rebound. No masses appreciated. Female : deferred Musculoskeletal: right bka with prosthetic foot NEUROLOGICAL: Cranial nerves grossly intact. Normal speech, normal gait. Normal sensory, motor exams PSYCH: Normal mood, normal affect. SKIN: Warm, Dry, normal turgor, no rashes or lesions noted. Dictation was performed using [employer] voice recognition software Physical Exam - Vital signs Vitals: Temp Pulse Resp BP Pulse Ox 98.3 F 47 L 17 126/75 H 95 01/03/17 11:41 01/03/17 11:41 01/03/17 11:41 01/03/17 11:41 01/03/17 11:41 Course - Re-evaluation Re-evalutation: 01/03/17 11:[address] pending, low suspicion for any life threatening isue but patient hs had many falls and fx in the past. 01/03/17 12:48 X-rays consistent with a possible fracture of the proximal phalanx of the left foot third digit. She has been given tramadol for pain. Otherwise she is stable imaging is negative otherwise. She has no life-threatening issues and will be discharged home as a toe fracture Patient to follow-up with her orthopedic physician if there are any other concerns or if symptoms improve her to return immediately if there are any other issues After performing a Medical Screening Examination, I estimate there is LOW risk for INTRACRANIAL HEMORRHAGE, UNSTABLE SPINE FRACTURE, CENTRAL CORD SYNDROME, CAUDA EQUINA, THORACIC AORTIC DISSECTION, PNEUMOTHORAX, PERFORATED BOWEL, RUPTURED ABDOMINAL AORTIC ANEURYSM, ACUTE TENDON RUPTURE, COMPARTMENT SYNDROME, or OPEN FRACTURE, thus I consider the discharge disposition reasonable. Also, there is no evidence or peritonitis, sepsis, or toxicity. I have reevaluated this patient multiple times and no significant life threatening changes are noted. The patient and I have discussed the diagnosis and risks, and we agree with discharging home to follow-up with their primary doctor with the understanding that symptoms and presentations can change. We also discussed returning to the Emergency Department immediately if new or worsening symptoms occur. We have discussed the symptoms which are most concerning (e.g., bloody stool, fever, changing or worsening pain, vomiting) that necessitate immediate return. - Vital Signs Vital signs: Temp Pulse Resp BP Pulse Ox 98.3 F 47 L 17 126/75 H 95 01/03/17 11:41 01/03/17 11:41 01/03/17 11:41 01/03/17 11:41 01/03/17 11:41 - Diagnostic Test Radiology reviewed: Image reviewed, Reports reviewed - left foot 3rd digit fracture Procedures - Immobilization Left Foot 3rd digit Time completed: 12:48 Pre-Proc Neuro Vasc Exam: Normal Immobilizer type: Finger splint (Static) Performed by: PCT Post-Proc Neuro Vasc Exam: Normal Alignment checked and good: Yes Discharge - Discharge Clinical Impression: Rib pain on right side Fall Qualifiers: Encounter type: initial encounter Qualified Code(s): W19.XXXA - Unspecified fall, initial encounter Fracture of third toe, left, closed Qualifiers: Encounter type: initial encounter Qualified Code(s): S92.502A - Displaced unspecified fracture of left lesser toe(s), initial encounter for closed fracture Condition: Stable Disposition: HOME, SELF-CARE Instructions: [place]on Taping (toes) ([facility]), Fractured Toe ([facility]) Prescriptions: Tramadol HCl 50 mg PO Q6 #14 tablet Referrals: DAR CASTLE MD [Primary Care Provider] - Follow up tomorrow
--- NOTE | 2017-01-03 12:15 | RADIOLOGY REPORT (SQ) ---
EXAM DESCRIPTION: FOOT LEFT COMPLETE COMPLETED DATE/TIME: 01/03/2017 12:03 pm REASON FOR STUDY: fall COMPARISON: None. NUMBER OF VIEWS: Three views. TECHNIQUE: AP, lateral and oblique radiographic images acquired of the left foot. LIMITATIONS: None. FINDINGS: MINERALIZATION: Normal. BONES: There is some cortical irregularity involving the distal end of the proximal phalanx of the 3r d digit which has the appearance of a fracture. No other evidence for fracture is seen JOINTS: No effusions. SOFT TISSUES: No soft tissue swelling. No foreign body. OTHER: No other significant finding. IMPRESSION: Cortical irregularity involving the distal end of the proximal phalanx of the 3rd digit which has the appearance of a fracture. No other evidence for fracture is seen TECHNICAL DOCUMENTATION: JOB ID: [id number] [employer]- All Rights Reserved
--- NOTE | 2017-01-03 12:30 | RADIOLOGY REPORT (SQ) ---
EXAM DESCRIPTION: CT HEAD WITHOUT COMPLETED DATE/TIME: 01/03/2017 12:16 pm REASON FOR STUDY: fall COMPARISON: Multiple previous studies most recent of which was 07/30/2016 TECHNIQUE: Axial images acquired through the brain without intravenous contrast. Images reviewed wi th bone, brain and subdural windows. Images stored on PACS. All CT scanners at this facility use dose modulation, iterative reconstruction, and/or weight based d osing when appropriate to reduce radiation dose to as low as reasonably achievable (ALARA). [facility]: Dose Right [facility]: CareDose [facility]: Dose Right [facility]: Teradose 4D [facility]: Smart Appear RADIATION DOSE: Up-to-date CT equipment and radiation dose reduction techniques were employed. CTDIv ol: 64.6 mGy. DLP: 1163 mGy-cm. mGy. LIMITATIONS: None. FINDINGS: VENTRICLES: Normal size and contour. CEREBRUM: No masses. No hemorrhage. No midline shift. Normal sutherland/white matter differentiation. N o evidence for acute infarction. CEREBELLUM: No masses. No hemorrhage. No alteration of density. No evidence for acute infarction. EXTRAAXIAL SPACES: No fluid collections. No masses. ORBITS AND GLOBE: No intra- or extraconal masses. Normal contour of globe without masses. CALVARIUM: No fracture. PARANASAL SINUSES: No fluid or mucosal thickening. SOFT TISSUES: No mass or hematoma. OTHER: No other significant finding. IMPRESSION: NORMAL BRAIN CT WITHOUT CONTRAST. TECHNICAL DOCUMENTATION: JOB ID: [id number] Quality ID # [id number]: Final reports with documentation of one or more dose reduction techniques (e.g., Au tomated exposure control, adjustment of the mA and/or kV according to patient size, use of iterative reconstruction technique) 2010 [employer]- All Rights Reserved
--- NOTE | 2017-01-03 12:33 | RADIOLOGY REPORT (SQ) ---
EXAM DESCRIPTION: CT CHEST WITHOUT COMPLETED DATE/TIME: 01/03/2017 12:16 pm REASON FOR STUDY: fall COMPARISON: None. TECHNIQUE: CT scan performed of the chest without intravenous contrast. Images reviewed with lung, soft tissue and bone windows. Reconstructed coronal and sagittal MPR images reviewed. All images st ored on PACS. All CT scanners at this facility use dose modulation, iterative reconstruction, and/or weight based d osing when appropriate to reduce radiation dose to as low as reasonably achievable (ALARA). [facility]: Dose Right [facility]: CareDose [facility]: Dose Right [facility]: Teradose 4D [facility]: [employer] RADIATION DOSE: Up-to-date CT equipment and radiation dose reduction techniques were employed. CTDIv ol: 14.4 mGy. DLP: 561 mGy-cm. mGy. LIMITATIONS: No technical limitations. FINDINGS: LUNGS AND PLEURA: No masses, infiltrates, pneumothorax. No pleural effusions, calcificati ons. HILAR AND MEDIASTINAL STRUCTURES: No identified masses or abnormal nodes. No obvious aneurysm. HEART AND VASCULAR STRUCTURES: No aneurysm. No pericardial effusion. UPPER ABDOMEN: No significant findings. Limited exam. THYROID AND OTHER SOFT TISSUES: No masses. No adenopathy. BONES: No significant finding. HARDWARE: None in the chest. OTHER: No other significant findings. IMPRESSION: NO SIGNIFICANT FINDING ON NON-CONTRASTED CHEST CT. TECHNICAL DOCUMENTATION: JOB ID: [id number] Quality ID # [id number]: Final reports with documentation of one or more dose reduction techniques (e.g., Au tomated exposure control, adjustment of the mA and/or kV according to patient size, use of iterative reconstruction technique) 2010 [employer]- All Rights Reserved
[2017-01-03 13:16] VITALS: BP 124/65
== END 2017-01-03 13:16 | disposition home or self-care (01) ==
LOC: ER 11:27
DX: S92.502A Displaced unspecified fracture of left lesser toe(s), initial encounter for closed fracture (principal); R07.81 Pleurodynia; M79.675 Pain in left toe(s); W01.0XXA Fall on same level from slipping, tripping and stumbling without subsequent striking against object, initial encounter; I25.10 Atherosclerotic heart disease of native coronary artery without angina pectoris; I10 Essential (primary) hypertension; F17.210 Nicotine dependence, cigarettes, uncomplicated; Z89.511 Acquired absence of right leg below knee; Z88.5 Allergy status to narcotic agent; Z88.6 Allergy status to analgesic agent; Z88.0 Allergy status to penicillin; Z88.1 Allergy status to other antibiotic agents; Z86.718 Personal history of other venous thrombosis and embolism; Z79.01 Long term (current) use of anticoagulants; Z87.81 Personal history of (healed) traumatic fracture
CPT/HCPCS: 70450; 71250; 99284

== ENCOUNTER 2017-04-24 14:26 | Emergency (ER) | payer MEDICAID ==
[2017-04-24 15:18] LABS: VENOUS BLOOD BASE EXCESS 0.3 mmol/L; VENOUS BLOOD HCO3 25.8 mmol/L (20-32); VENOUS BLOOD PCO2 44.9 mmHg (35-63); VENOUS BLOOD PH 7.38 (7.30-7.42)
[2017-04-24 15:19] LABS: PROTHROMBIN TIME 21.8 SEC (11.4-15.4)
[2017-04-24 15:20] LABS: ABSOLUTE BASOPHILS # (AUTO) 0.1 10^3/uL (0.0-0.2); ABSOLUTE EOSINOPHILS # (AUTO) 0.6 10^3/uL (0.0-0.6); ABSOLUTE LYMPHOCYTES (AUTO) 1.8 10^3/uL (0.5-4.7); ABSOLUTE MONOCYTES (AUTO) 0.6 10^3/uL (0.1-1.4); ABSOLUTE NEUT (AUTO) 3.4 10^3/uL (1.7-8.2); BASOPHILS % (AUTO) 1.1 % (0-2); EOSINOPHILS % (AUTO) 8.8 % (0-6); HEMATOCRIT 41.1 % (36.0-47.0); HEMOGLOBIN 13.8 g/dL (12.0-15.5); HGB HCT DIFFERENCE 0.3; LYMPHOCYTES % (AUTO) 27.8 % (13-45); MEAN CORPUSCULAR HGB CONC 33.6 g/dL (32.0-36.0); MEAN CORPUSCULAR VOLUME 92 fl (80-97); MONOCYTES % (AUTO) 8.8 % (3-13); RED BLOOD COUNT 4.45 10^6/uL (3.72-5.28); RED CELL DISTRIBUTION WIDTH 13.6 % (11.5-14.0); SEGMENTED NEUTROPHILS % (AUTO) 53.5 % (42-78); WHITE BLOOD COUNT 6.3 10^3/uL (4.0-10.5)
--- NOTE | 2017-04-24 15:27 | ER Document Report ---
ED Dizziness/Weakness - General Chief Complaint: General Weakness Stated Complaint: WEAKNESS Time Seen by Provider: 04/24/17 15:11 Information source: Patient TRAVEL OUTSIDE OF THE [place] IN LAST 30 DAYS: No - HPI Patient complains to provider of: Weakness - "I am unable to walk because I am weak" Onset: Yesterday Onset/Duration: Gradual Quality of pain: Other - chronic pain symdrome Severity: Moderate Associated symptoms: Weak all over Baseline gait: Uses a walker - pt has right BKA - Related Data Allergies/Adverse Reactions: codeine [Codeine] Allergy (Unknown, Verified 06/09/16 10:24) ibuprofen [Ibuprofen] Allergy (Unknown, Verified 06/09/16 10:24) Penicillins Allergy (Unknown, Verified 06/09/16 10:24) sulfamethoxazole [From Bactrim] Allergy (Unknown, Verified 06/09/16 10:24) trimethoprim [From Bactrim] Allergy (Unknown, Verified 06/09/16 10:24) clarithromycin [From Biaxin] Allergy (Verified 06/09/16 10:24) hydrocodone [Hydrocodone] Allergy (Verified 06/09/16 10:24) ketorolac tromethamine [From Toradol] Allergy (Verified 06/09/16 10:24) morphine [Morphine] Allergy (Verified 06/09/16 10:24) Past Medical History - Social History Smoking Status: Current Every Day Smoker Chew tobacco use (# tins/day): No Frequency of alcohol use: Occasional Drug Abuse: None Family History: Other Patient has suicidal ideation: No Patient has homicidal ideation: No - Past Medical History Cardiac Medical History: Reports: Hx Coronary Artery Disease - high chol , Hx Hypertension - no home meds Denies: Hx Heart Attack Pulmonary Medical History: Reports: Hx Bronchitis Denies: Hx Asthma, Hx COPD, Hx Pneumonia Neurological Medical History: Reports: Hx Cerebrovascular Accident - 2005, Hx Seizures - Renal/ Medical History: Denies: Hx Peritoneal Dialysis Musculoskeltal Medical History: Denies Hx Arthritis Psychiatric Medical History: Reports: Hx Anxiety - panic attacks, Hx Bipolar Disorder, Hx Depression Traumatic Medical History: Reports: Hx Fractures Past Surgical History: Reports: Hx Hysterectomy, Hx Orthopedic Surgery - rbka, Hx Tubal Ligation, Hx Vascular Surgery - Right leg arterial clot removal - Immunizations Immunizations up to date: No Hx Diphtheria, Pertussis, Tetanus Vaccination: Yes Review of Systems - Review of Systems Constitutional: Weakness EENT: No symptoms reported Cardiovascular: No symptoms reported Respiratory: No symptoms reported Gastrointestinal: Nausea Female Genitourinary: No symptoms reported Musculoskeletal: Other - pt states her right LE prosthesis has been on for 3 days because the pin on it broke and it won't come off Skin: No symptoms reported Hematologic/Lymphatic: No symptoms reported Neurological/Psychological: No symptoms reported Physical Exam - Vital signs Vitals: Resp 16 04/24/17 14:37 - Notes Notes: PHYSICAL EXAMINATION: GENERAL: She is an obese pale female sitting in bed with slightly decreased mentation. HEAD: Atraumatic, normocephalic. EYES: Pupils equal round and reactive to light, extraocular movements intact, conjunctiva are normal. ENT: Nares patent, oropharynx clear without exudates. Moist mucous membranes. NECK: Normal range of motion, supple without lymphadenopathy LUNGS: Breath sounds clear to auscultation bilaterally and equal. No wheezes rales or rhonchi. HEART: Regular rate and rhythm without murmurs ABDOMEN: Soft, nontender, nondistended abdomen. No guarding, no rebound. No masses appreciated. Female : deferred Musculoskeletal: Normal range of motion, no pitting or edema. No cyanosis. Right lower extremity BKA. Stump appears without breakdown. NEUROLOGICAL: Cranial nerves grossly intact. Normal speech, normal gait. Normal sensory, motor exams PSYCH: Normal mood, normal affect. SKIN: Warm, Dry, normal turgor, no rashes or lesions noted. Course - Vital Signs Vital signs: Temp Pulse Resp BP Pulse Ox 97.5 F 19 123/84 95 04/24/17 14:39 04/24/17 20:01 04/24/17 20:01 04/24/17 20:01 - Laboratory Result Diagrams: 04/24/17 15:00 04/24/17 15:00 Laboratory results interpreted by me: 04/24/17 04/24/17 04/24/17 15:00 15:00 15:00 Plt Count 148 L Eosinophils % 8.8 H PT 21.8 H Total Protein 6.0 L - Diagnostic Test Radiology reviewed: Image reviewed, Reports reviewed - EKG Interpretation by Me Additional EKG results interpreted by me: 04/24/17 21:16 EKG done on 04/24/2017 at 1600 shows sinus rhythm with a rate of 62 there is PVCs. No ST elevation or depression. Discharge - Discharge Clinical Impression: Weakness generalized Condition: Stable Instructions: Weakness ([facility]) Additional Instructions: Return to the emergency department if you have any concerns. Wednesday morning please call the company who should you your prosthesis to have it fixed. Referrals: CHELSI HERNANDEZ MD [Primary Care Provider] - Follow up in 3-5 days
[2017-04-24 15:33] LABS: ALANINE AMINOTRANSFERASE 20 U/L (9-52); ALBUMIN 3.9 g/dL (3.5-5.0); ALKALINE PHOSPHATASE 62 U/L (38-126); ANION GAP 11 (5-19); ASPARTATE AMINO TRANSFERASE 25 U/L (14-36); BILIRUBIN,DIRECT 0.3 mg/dL (0.0-0.4); BILIRUBIN,TOTAL 0.4 mg/dL (0.2-1.3); BLOOD UREA NITROGEN 12 mg/dL (7-20); CALCIUM 9.3 mg/dL (8.4-10.2); CARBON DIOXIDE 27 mmol/L (22-30); CHLORIDE 106 mmol/L (98-107); GLUCOSE 87 mg/dL (75-110); POTASSIUM 3.7 mmol/L (3.6-5.0)
--- NOTE | 2017-04-24 16:07 | RADIOLOGY REPORT (SQ) ---
EXAM DESCRIPTION: CHEST SINGLE VIEW COMPLETED DATE/TIME: 04/24/2017 3:58 pm REASON FOR STUDY: weakness COMPARISON: CT chest 01/03/2017 EXAM PARAMETERS: NUMBER OF VIEWS: One view. TECHNIQUE: Single frontal radiographic view of the chest acquired. RADIATION DOSE: NA LIMITATIONS: None. FINDINGS: LUNGS AND PLEURA: Mild bibasilar atelectasis. No pleural effusions. No pneumothorax. MEDIASTINUM AND HILAR STRUCTURES: No masses. Contour normal. HEART AND VASCULAR STRUCTURES: Mild cardiomegaly BONES: No acute findings. HARDWARE: None in the chest. OTHER: No other significant finding. IMPRESSION: Mild bibasilar atelectasis TECHNICAL DOCUMENTATION: JOB ID: [id number] [employer]- All Rights Reserved
[2017-04-24 16:17] LABS: MAGNESIUM 1.9 mg/dL (1.6-2.3)
[2017-04-24 16:23] LABS: ALCOHOL < 10 mg/dL (NONE DETECTED)
[2017-04-24] MEDS ORDERED: NORMAL SALINE 1000 ML 1,000 ML IV ONE (16:44)
[2017-04-24 17:23] LABS: APPEARANCE,URINE CLEAR; BILIRUBIN,URINE NEGATIVE (NEGATIVE); GLUCOSE, URINE NEGATIVE (NEGATIVE); KETONES,URINE NEGATIVE (NEGATIVE); LEUKOCYTE ESTERASE,URINE NEGATIVE (NEGATIVE); NITRITE,URINE NEGATIVE (NEGATIVE); PROTEIN,URINE NEGATIVE (NEGATIVE); URINE SPECIFIC GRAVITY 1.009; UROBILINOGEN,URINE NEGATIVE mg/dL (<2.0)
[2017-04-24 17:47] LABS: URINE BARBITURATES SCREEN NEGATIVE; URINE METHADONE SCREEN NEGATIVE; URINE OPIATES LOW NEGATIVE; URINE PHENCYCLIDINE SCREEN NEGATIVE
[2017-04-24 21:41] VITALS: BP 116/86
--- NOTE | 2017-04-25 09:42 | EKG REPORT ---
SEVERITY:- ABNORMAL ECG - SINUS RHYTHM VENTRICULAR TRIGEMINY BORDERLINE LEFT AXIS DEVIATION BORDERLINE T ABNORMALITIES, INFERIOR LEADS : Confirmed by: Bishnu Phillips MD 25-Apr-2017 09:41:41
== END 2017-04-24 21:41 | disposition home or self-care (01) ==
LOC: ER 14:26
DX: R53.1 Weakness (principal); G89.4 Chronic pain syndrome; E66.9 Obesity, unspecified; I49.3 Ventricular premature depolarization; I25.10 Atherosclerotic heart disease of native coronary artery without angina pectoris; I10 Essential (primary) hypertension; F17.200 Nicotine dependence, unspecified, uncomplicated; Z89.511 Acquired absence of right leg below knee; Z88.5 Allergy status to narcotic agent; Z88.6 Allergy status to analgesic agent; Z88.0 Allergy status to penicillin; Z88.1 Allergy status to other antibiotic agents; Z88.8 Allergy status to other drugs, medicaments and biological substances; Z86.73 Personal history of transient ischemic attack (TIA), and cerebral infarction without residual deficits
CPT/HCPCS: 93005; 99285; 96360; 36415; 87040; 87086; 82962; 80307 ×2; 83735; 85025; 85610; 80053; 81001; 84484; 82803; 83605; 71010; 93010; J7030

== ENCOUNTER 2017-09-25 12:58 | Emergency (ER) | payer MEDICAID ==
--- NOTE | 2017-09-25 14:23 | ER Document Report ---
ED Medical Screen (RME) - General Chief Complaint: Leg Pain Stated Complaint: LEFT FOOT PAIN Time Seen by Provider: 09/25/17 14:16 Notes: Left toes blue, cold, painful 3 days. Heavy smoker with peripheral vascular disease and previous right BKA. Patient is taking Xarelto. I have greeted and performed a rapid initial assessment of this patient. A comprehensive ED assessment and evaluation of the patient, analysis of test results and completion of the medical decision making process will be conducted by additional ED providers. TRAVEL OUTSIDE OF THE [place] IN LAST 30 DAYS: No - Related Data Allergies/Adverse Reactions: Penicillins Allergy (Unknown, Verified 09/25/17 14:08) sulfamethoxazole [From Bactrim] Allergy (Unknown, Verified 09/25/17 14:08) trimethoprim [From Bactrim] Allergy (Unknown, Verified 09/25/17 14:08) clarithromycin [From Biaxin] Allergy (Verified 09/25/17 14:08) hydrocodone [Hydrocodone] Allergy (Verified 09/25/17 14:08) ketorolac tromethamine [From Toradol] Allergy (Verified 09/25/17 14:08) Past Medical History - Social History Chew tobacco use (# tins/day): No Frequency of alcohol use: None Drug Abuse: None - Past Medical History Cardiac Medical History: Reports: Hx Coronary Artery Disease - high chol , Hx Hypertension - no home meds Denies: Hx Heart Attack Pulmonary Medical History: Reports: Hx Bronchitis Denies: Hx Asthma, Hx COPD, Hx Pneumonia Neurological Medical History: Reports: Hx Cerebrovascular Accident - 2005, Hx Seizures - Renal/ Medical History: Denies: Hx Peritoneal Dialysis Musculoskeltal Medical History: Denies Hx Arthritis Psychiatric Medical History: Reports: Hx Anxiety - panic attacks, Hx Bipolar Disorder, Hx Depression Traumatic Medical History: Reports: Hx Fractures Past Surgical History: Reports: Hx Hysterectomy, Hx Orthopedic Surgery - rbka, Hx Tubal Ligation, Hx Vascular Surgery - Right leg arterial clot removal - Immunizations Immunizations up to date: No Hx Diphtheria, Pertussis, Tetanus Vaccination: Yes Physical Exam - Vital signs Vitals: Temp Pulse Resp BP Pulse Ox 97.4 F 88 16 118/76 95 09/25/17 13:05 09/25/17 13:05 09/25/17 13:05 09/25/17 13:05 09/25/17 13:05 Course - Vital Signs Vital signs: Temp Pulse Resp BP Pulse Ox 97.4 F 88 16 118/76 95 09/25/17 13:05 09/25/17 13:05 09/25/17 13:05 09/25/17 13:05 09/25/17 13:05
[2017-09-25 15:48] LABS: ABSOLUTE BASOPHILS # (AUTO) 0.1 10^3/uL (0.0-0.2); ABSOLUTE EOSINOPHILS # (AUTO) 0.6 10^3/uL (0.0-0.6); ABSOLUTE LYMPHOCYTES (AUTO) 2.1 10^3/uL (0.5-4.7); ABSOLUTE MONOCYTES (AUTO) 0.7 10^3/uL (0.1-1.4); ABSOLUTE NEUT (AUTO) 5.1 10^3/uL (1.7-8.2); BASOPHILS % (AUTO) 0.7 % (0-2); EOSINOPHILS % (AUTO) 6.5 % (0-6); HEMATOCRIT 42.7 % (36.0-47.0); HEMOGLOBIN 14.4 g/dL (12.0-15.5); LYMPHOCYTES % (AUTO) 24.7 % (13-45); MEAN CORPUSCULAR HEMOGLOBIN 31.5 pg (27.0-33.4); MEAN CORPUSCULAR HGB CONC 33.7 g/dL (32.0-36.0); MEAN CORPUSCULAR VOLUME 94 fl (80-97); MONOCYTES % (AUTO) 8.7 % (3-13); PLATELET COUNT 209 10^3/uL (150-450); RED BLOOD COUNT 4.57 10^6/uL (3.72-5.28); RED CELL DISTRIBUTION WIDTH 14.9 % (11.5-14.0); SEGMENTED NEUTROPHILS % (AUTO) 59.4 % (42-78); TOTAL CELLS COUNTED % (AUTO) 100 %; WHITE BLOOD COUNT 8.5 10^3/uL (4.0-10.5)
[2017-09-25 16:02] LABS: ALANINE AMINOTRANSFERASE 24 U/L (9-52); ALBUMIN 4.1 g/dL (3.5-5.0); ALKALINE PHOSPHATASE 64 U/L (38-126); ANION GAP 11 (5-19); ASPARTATE AMINO TRANSFERASE 40 U/L (14-36); BILIRUBIN,DIRECT 0.3 mg/dL (0.0-0.4); BILIRUBIN,TOTAL 0.3 mg/dL (0.2-1.3); BLOOD UREA NITROGEN 13 mg/dL (7-20); CALCIUM 9.8 mg/dL (8.4-10.2); CARBON DIOXIDE 27 mmol/L (22-30); CHLORIDE 103 mmol/L (98-107); CREATINE KINASE 35 U/L (30-135); GLUCOSE 98 mg/dL (75-110); POTASSIUM 4.5 mmol/L (3.6-5.0); SODIUM 141.4 mmol/L (137-145); TOTAL PROTEIN 6.7 g/dL (6.3-8.2)
[2017-09-25] MEDS ORDERED: HEPARIN SOD (PORCINE) 1,000 UNIT/ML 10 ML VIAL IV ONE (16:03)
[2017-09-25] MEDS ORDERED: HEPARIN SODIUM,PORCINE/D5W 25,000 UNIT/250 ML RTUINJ IV PRN (16:03)
[2017-09-25 16:05] LABS: INTERNATIONAL RATION (INR) 0.95; PROTHROMBIN TIME 13.1 SEC (11.4-15.4)
[2017-09-25] MEDS ORDERED: HYDROMORPHONE HCL INJ/PF 2 MG/ML AMPULE IV ONE ×2 (16:13→19:20)
[2017-09-25 16:45] LABS: APPEARANCE,URINE CLEAR; BILIRUBIN,URINE NEGATIVE (NEGATIVE); COLOR,URINE STRAW; GLUCOSE, URINE NEGATIVE (NEGATIVE); KETONES,URINE NEGATIVE (NEGATIVE); LEUKOCYTE ESTERASE,URINE NEGATIVE (NEGATIVE); NITRITE,URINE NEGATIVE (NEGATIVE); PROTEIN,URINE NEGATIVE (NEGATIVE); URINE SPECIFIC GRAVITY 1.003; UROBILINOGEN,URINE NEGATIVE mg/dL (<2.0)
--- NOTE | 2017-09-25 17:05 | ER Document Report ---
ED General - General Chief Complaint: Leg Pain Stated Complaint: LEFT FOOT PAIN Time Seen by Provider: 09/25/17 14:16 Mode of Arrival: Ambulatory Information source: Patient Notes: 52-year-old female with history of peripheral vascular disease, hypertension, bipolar, tobacco dependence presents with complaint of left foot pain that started 3 days prior to arrival. Patient states pain is located in her third fourth and fifth toe. She states that she has noticed some discoloration over the last few days. She states that in 2013 she had similar symptoms on the right leg which resulted in a BKA. He is currently on Xarelto. She does continue to smoke. She denies any chest pain or shortness of breath. TRAVEL OUTSIDE OF THE [place] IN LAST 30 DAYS: No - HPI Onset: Other Onset/Duration: Persistent, Worse Quality of pain: Burning, Throbbing Severity: Moderate Pain Level: 2 Associated symptoms: None Exacerbated by: Movement Relieved by: Denies Similar symptoms previously: Yes Recently seen / treated by doctor: Yes - Related Data Allergies/Adverse Reactions: Penicillins Allergy (Unknown, Verified 09/25/17 14:08) sulfamethoxazole [From Bactrim] Allergy (Unknown, Verified 09/25/17 14:08) trimethoprim [From Bactrim] Allergy (Unknown, Verified 09/25/17 14:08) clarithromycin [From Biaxin] Allergy (Verified 09/25/17 14:08) hydrocodone [Hydrocodone] Allergy (Verified 09/25/17 14:08) ketorolac tromethamine [From Toradol] Allergy (Verified 09/25/17 14:08) Past Medical History - General Information source: Patient, [facility] - Social History Smoking Status: Current Every Day Smoker Chew tobacco use (# tins/day): No Smoking Education Provided: Yes - 4 minutes of smoking cessation advised Frequency of alcohol use: None Drug Abuse: None Lives with: Family Family History: Reviewed & Not Pertinent, Other Patient has suicidal ideation: No Patient has homicidal ideation: No - Past Medical History Cardiac Medical History: Reports: Hx Coronary Artery Disease - high chol , Hx Hypercholesterolemia, Hx Hypertension Denies: Hx Heart Attack Pulmonary Medical History: Reports: Hx Bronchitis Denies: Hx Asthma, Hx COPD, Hx Pneumonia Neurological Medical History: Reports: Hx Cerebrovascular Accident - 2005, Hx Seizures - Renal/ Medical History: Denies: Hx Peritoneal Dialysis Musculoskeltal Medical History: Denies Hx Arthritis Psychiatric Medical History: Reports: Hx Anxiety - panic attacks, Hx Bipolar Disorder, Hx Depression Traumatic Medical History: Reports: Hx Fractures Past Surgical History: Reports: Hx Hysterectomy, Hx Orthopedic Surgery - rbka, Hx Tubal Ligation, Hx Vascular Surgery - Right leg arterial clot removal - Immunizations Immunizations up to date: No Hx Diphtheria, Pertussis, Tetanus Vaccination: Yes Review of Systems - Review of Systems Notes: PHYSICAL EXAMINATION: GENERAL: Well-appearing, well-nourished and in no acute distress. HEAD: Atraumatic, normocephalic. EYES: Pupils equal round and reactive to light, extraocular movements intact, conjunctiva are normal. ENT: Nares patent, oropharynx clear without exudates. Moist mucous membranes. NECK: Normal range of motion, supple without lymphadenopathy LUNGS: Breath sounds clear to auscultation bilaterally and equal. No wheezes rales or rhonchi. HEART: Regular rate and rhythm without murmurs ABDOMEN: Soft, nontender, nondistended abdomen. No guarding, no rebound. No masses appreciated. Female : deferred Musculoskeletal: Left foot cool, pale. DP pulse detected with Doppler only. Blackening of the third fourth and fifth toes. NEUROLOGICAL: Cranial nerves grossly intact. Normal speech, normal gait. Normal sensory, motor exams PSYCH: Normal mood, normal affect. SKIN: Warm, Dry, normal turgor, no rashes or lesions noted. Physical Exam - Vital signs Vitals: Temp Pulse Resp BP Pulse Ox 97.4 F 88 16 118/76 95 09/25/17 13:05 09/25/17 13:05 09/25/17 13:05 09/25/17 13:05 09/25/17 13:05 Course - Re-evaluation Re-evalutation: Laboratory 09/25/17 09/25/17 09/25/17 15:22 15:22 15:22 WBC 8.5 RBC 4.57 Hgb 14.4 Hct 42.7 MCV 94 MCH 31.5 MCHC 33.7 RDW 14.9 H Plt Count 209 Seg Neutrophils % 59.4 Lymphocytes % 24.7 Monocytes % 8.7 Eosinophils % 6.5 H Basophils % 0.7 Absolute Neutrophils 5.1 Absolute Lymphocytes 2.1 Absolute Monocytes 0.7 Absolute Eosinophils 0.6 Absolute Basophils 0.1 PT 13.1 INR 0.95 APTT Sodium 141.4 Potassium 4.5 Chloride 103 Carbon Dioxide 27 Anion Gap 11 BUN 13 Creatinine 0.60 Est GFR ( Amer) > 60 Est GFR (Non-Af Amer) > 60 Glucose 98 Calcium 9.8 Total Bilirubin 0.3 Direct Bilirubin 0.3 Neonat Total Bilirubin Not Reportable Neonat Direct Bilirubin Not Reportable Neonat Indirect Bili Not Reportable AST 40 H ALT 24 Alkaline Phosphatase 64 Creatine Kinase 35 Total Protein 6.7 Albumin 4.1 Urine Color Urine Appearance Urine pH Ur Specific [place] Urine Protein Urine Glucose (UA) Urine Ketones Urine Blood Urine Nitrite Urine Bilirubin Urine Urobilinogen Ur Leukocyte Esterase Urine WBC (Auto) Urine RBC (Auto) Urine Bacteria (Auto) Squamous Epi Cells Auto Urine Mucus (Auto) Urine Ascorbic Acid 09/25/17 09/25/17 16:19 16:28 WBC RBC Hgb Hct MCV MCH MCHC RDW Plt Count Seg Neutrophils % Lymphocytes % Monocytes % Eosinophils % Basophils % Absolute Neutrophils Absolute Lymphocytes Absolute Monocytes Absolute Eosinophils Absolute Basophils PT INR APTT 26.3 Sodium Potassium Chloride Carbon Dioxide Anion Gap BUN Creatinine Est GFR ( Amer) Est GFR (Non-Af Amer) Glucose Calcium Total Bilirubin Direct Bilirubin Neonat Total Bilirubin Neonat Direct Bilirubin Neonat Indirect Bili AST ALT Alkaline Phosphatase Creatine Kinase Total Protein Albumin Urine Color STRAW Urine Appearance CLEAR Urine pH 5.0 Ur Specific [place] 1.003 Urine Protein NEGATIVE Urine Glucose (UA) NEGATIVE Urine Ketones NEGATIVE Urine Blood NEGATIVE Urine Nitrite NEGATIVE Urine Bilirubin NEGATIVE Urine Urobilinogen NEGATIVE Ur Leukocyte Esterase NEGATIVE Urine WBC (Auto) 4 Urine RBC (Auto) 1 Urine Bacteria (Auto) TRACE Squamous Epi Cells Auto 6 Urine Mucus (Auto) RARE Urine Ascorbic Acid NEGATIVE Aorta w/Runoff CTA 09/25/17 16:04 IMPRESSION: 1. Left inflow disease. Common iliac stents in place with probable focal near occlusion on the left. 2. No occlusion or high-grade stenosis throughout the diminutive left lower extremity arteries. 09/25/17 20:01 52-year-old female with known peripheral vascular disease right BKA presents with complaint of left foot pain that occurred 3 days prior to arrival. Upon arrival vitals reviewed and within normal limits. Patient does not appear toxic or dehydrated. She is in no acute distress. Exam is significant for nonpalpable DP PT pulses, a cool,pale foot and blackening of her toes. Arterial duplex was obtained and significant for severe PVD, low velocities. I did speak to Dr. Schilling the vascular surgeon reading the study and he is concerned for "tissue threat." CTA runoff of the lower extremity were obtained and concerning for occlusion of the left common iliac stent. Patient received Dilaudid for pain. Heparin drip was initiated. Patient was accepted by [facility] by Dr. Pinzon from vascular surgery. I spoke to the PA working with Dr. Pinzon Lukepatrick Shaikh. 09/25/17 20:04 09/25/17 20:06 Patient reevaluated prior to transfer. Vital signs stable. Pain controlled. Patient stable for transfer. - Vital Signs Vital signs: Temp Pulse Resp BP Pulse Ox 98.2 F 72 14 128/65 H 98 09/25/17 20:00 09/25/17 15:16 09/25/17 19:53 09/25/17 19:53 09/25/17 19:53 - Laboratory Result Diagrams: 09/25/17 15:22 09/25/17 15:22 Laboratory results interpreted by me: 09/25/17 09/25/17 15:22 15:22 RDW 14.9 H Eosinophils % 6.5 H AST 40 H - Diagnostic Test Radiology reviewed: Image reviewed, Reports reviewed - EKG Interpretation by Me EKG shows normal: Sinus rhythm Discharge - Discharge Clinical Impression: Peripheral vascular disease, Arterial occlusion due to stenosis, Arterial occlusion, lower extremity, Tobacco dependence Condition: Stable Disposition: [facility] Forms: Smoking Cessation Education Referrals: CHELSI HERNANDEZ MD [Primary Care Provider] - Follow up as needed
--- NOTE | 2017-09-25 17:08 | RADIOLOGY REPORT (SQ) ---
EXAM DESCRIPTION: CTA ABD AORTA AND EXTREMITY COMPLETED DATE/TIME: 09/25/2017 4:49 pm REASON FOR STUDY: no pulse left leg COMPARISON: Arterial Doppler study from same date. TECHNIQUE: CT scan of the body and lower extremities performed with intravenous contrast using helic al scanning technique with dynamic intravenous contrast injection. Field of view includes from just above the bifurcation throughout the lower extremities. Images reviewed with lung, soft tissue, and bone windows. Reconstructed coronal and sagittal MPR images reviewed. All images stored on PACS. Advanced 3D imaging as volume-rendering, MIPs, SSD performed? yes All CT scanners at this facility use dose modulation, iterative reconstruction, and/or weight based d osing when appropriate to reduce radiation dose to as low as reasonably achievable (ALARA). [facility]: Dose Right [facility]: CareDose [facility]: Dose Right [facility]: Teradose 4D [facility]: [employer] CONTRAST TYPE AND DOSE: contrast/concentration: Isovue 370.00 mg/ml; Total Contrast Delivered: 100.0 ml; Total Saline Delivered: 100.1 ml RENAL FUNCTION: Creatinine 0.6 LIMITATIONS: None. FINDINGS: AORTA AND VESSELS: Distal most aorta normal caliber, calcified. Bilateral common iliac st ents in place. Greater than 50% narrowing in the left stent is suggested. Right stent looks widely patent. Bilateral external iliac arteries look widely patent as do the common femoral arteries bilat erally. LOWER EXTREMITIES: RIGHT LEG: FEMORAL ARTERIES: Diminutive vessels but no occlusion evident. POPLITEAL ARTERY: No aneurysm or occlusion evident. TIBIOPERONEAL TRUNK AND RUNOFF VESSELS: Not applicable, patient has below the knee amputation. OTHER: No other significant finding. LEFT LEG: FEMORAL ARTERIES: Diminutive vessels but no evidence of occlusion. POPLITEAL ARTERY: No aneurysm. No occlusions or significant stenoses. TIBIOPERONEAL TRUNK AND RUNOFF VESSELS: Diminutive 3 vessel runoff is suggested to the ankle. OTHER: No other significant finding. ABDOMINOPELVIC SOFT TISSUES: No evidence of gross bowel pathology or abnormal fluid. 2.6 cm left ad nexal region cyst. Bladder unremarkable. Lower renal poles unremarkable. LOWER EXTREMITY SOFT TISSUES: No mass or fluid. BONY STRUCTURES: No significant or acute findings. 3-D IMAGING: Confirms the above findings. OTHER: No other significant finding. IMPRESSION: 1. Left inflow disease. Common iliac stents in place with probable focal near occlusion on the left. 2. No occlusion or high-grade stenosis throughout the diminutive left lower extremity arteries. TECHNICAL DOCUMENTATION: JOB ID: [id number] Quality ID # [id number]: Final reports with documentation of one or more dose reduction techniques (e.g., Au tomated exposure control, adjustment of the mA and/or kV according to patient size, use of iterative reconstruction technique) 2010 [employer]- All Rights Reserved Reading location - IP/workstation name: [email or web address]
[2017-09-25] MEDS ORDERED: HEPARIN SOD (PORCINE) 1,000 UNIT/ML 10 ML VIAL IV PRN (19:04)
[2017-09-25 20:02] VITALS: BP 128/65
--- NOTE | 2017-09-26 13:33 | XCELERA REPORT ---
[address] [address] Lower Extremity Arterial Evaluation Name: ROSANGELA MUELLER Age: 52 yrs Gender: Female : 1965 Patient Status: Emergency Patient Location: ER Study Date: 09/25/2017 03:49 PM Procedure: A color flow and duplex scan of the lower extremity arteries was performed on the left with velocity and waveform anaylsis. Reason For Study: left toes blue, cold, painful Ordering Physician: BLAIRE LOZADA Performed By: Shobha Durbin Measurements and Calculations Right Left CLINICAL PROVIDER TRAINER PSV 64.3 cm/sec Prox PFA PSV -47.5 cm/sec Prox SFA PSV 60.4 cm/sec Mid SFA PSV -62.9 cm/sec Dist SFA PSV -38.9 cm/sec Prox Pop A PSV 33.2 cm/sec Dist OLIVIA PSV 14.1 cm/sec Dist LEGAL REFEREE PSV 37.0 cm/sec Kai Pedis PSV 10.3 cm/sec Left Side Arterial Evaluation Abnormally low velocity and monophasic waveforms noted from the Common Femoral artery to the infrageniculate vessels. Amplitude progressively worse distally, 50-99 % stenosis at the Aorto Iliac inflow. Ankle Brachial index not done due to pain. Critical Findings Discussed with Dr Parker at about 1700. Interpretation Summary Severe hemodynamically significant lesions in the left lower extremity only, on duplex imaging, at rest. : BLAIRE LOZADA > Gwyn Schilling
== END 2017-09-25 20:12 | disposition short-term general hospital (02) ==
LOC: ER 12:58
DX: I73.9 Peripheral vascular disease, unspecified (principal); I77.1 Stricture of artery; I74.3 Embolism and thrombosis of arteries of the lower extremities; M79.605 Pain in left leg; F32.9 Major depressive disorder, single episode, unspecified; F17.200 Nicotine dependence, unspecified, uncomplicated; Z89.511 Acquired absence of right leg below knee; Z79.01 Long term (current) use of anticoagulants; I25.10 Atherosclerotic heart disease of native coronary artery without angina pectoris; I10 Essential (primary) hypertension
CPT/HCPCS: 96376; 99406; 99285; 96375; 96365; 96366; 36415; 82550; 85025; 85610; 85730; 80053; 81001; 93926 ×2; 75635; J1644 ×2; J1170

== ENCOUNTER 2018-10-04 09:24 | Inpatient (IN) | payer MEDICAID ==
[2018-10-04] MEDS ORDERED: ONDANSETRON HCL INJ/PF 4 MG/2 ML SDV IV ONE (09:57)
--- NOTE | 2018-10-04 09:59 | ER Document Report ---
ED Medical Screen (RME) - General Chief Complaint: Abdominal Pain Stated Complaint: ABDOMINAL PAIN Time Seen by Provider: 10/04/18 09:56 Primary Care Provider: CHELSI HERNANDEZ MD [Primary Care Provider] - Follow up as needed Mode of Arrival: Wheelchair Information source: Patient Notes: 53-year-old female presented to ED for complaint of nausea vomiting diarrhea but has not vomited today. She has right lower quadrant abdominal pain. She does have significant tenderness to palpation to the right lower quadrant. She states she has had a bilateral tubal ligation. She has a history of a stroke 12 years ago had a blood clot also has bipolar. She has stents in her femoral arteries. She lives with her significant other she smokes 3/4 pack a day but does not drink or do any drugs she does not work at this time. Have bowel sounds active at this time abdomen is soft. Patient states she will need IV fluids before she can urinate because she is a little dehydrated. I have greeted and performed a rapid initial assessment of this patient. A comprehensive ED assessment and evaluation of the patient, analysis of test results and completion of medical decision making process will be conducted by an additional ED providers. Dictation of this chart was performed using voice recognition software; therefore, there may be some unintended grammatical errors. TRAVEL OUTSIDE OF THE [place] IN LAST 30 DAYS: No - Related Data Allergies/Adverse Reactions: Penicillins Allergy (Unknown, Verified 09/25/17 14:08) sulfamethoxazole [From Bactrim] Allergy (Unknown, Verified 09/25/17 14:08) trimethoprim [From Bactrim] Allergy (Unknown, Verified 09/25/17 14:08) clarithromycin [From Biaxin] Allergy (Verified 09/25/17 14:08) hydrocodone [Hydrocodone] Allergy (Verified 09/25/17 14:08) ketorolac tromethamine [From Toradol] Allergy (Verified 09/25/17 14:08) Past Medical History - Past Medical History Cardiac Medical History: Reports: Hx Coronary Artery Disease - high chol , Hx Hypercholesterolemia, Hx Hypertension Denies: Hx Heart Attack Pulmonary Medical History: Reports: Hx Bronchitis Denies: Hx Asthma, Hx COPD, Hx Pneumonia Neurological Medical History: Reports: Hx Cerebrovascular Accident - 2005, Hx Seizures - Renal/ Medical History: Denies: Hx Peritoneal Dialysis Musculoskeltal Medical History: Denies Hx Arthritis Psychiatric Medical History: Reports: Hx Anxiety - panic attacks, Hx Bipolar Disorder, Hx Depression Traumatic Medical History: Reports: Hx Fractures Past Surgical History: Reports: Hx Hysterectomy, Hx Orthopedic Surgery - rbka, Hx Tubal Ligation, Hx Vascular Surgery - Right leg arterial clot removal - Immunizations Immunizations up to date: No Hx Diphtheria, Pertussis, Tetanus Vaccination: Yes Physical Exam - Vital signs Vitals: Temp Pulse Resp BP Pulse Ox 99.0 F 108 H 18 123/75 98 10/04/18 09:38 10/04/18 09:38 10/04/18 09:38 10/04/18 09:38 10/04/18 09:38 Course - Vital Signs Vital signs: Temp Pulse Resp BP Pulse Ox 99.0 F 108 H 18 123/75 98 10/04/18 09:38 10/04/18 09:38 10/04/18 09:38 10/04/18 09:38 10/04/18 09:38 Doctor's Discharge - Discharge Referrals: CHELSI HERNANDEZ MD [Primary Care Provider] - Follow up as needed
[2018-10-04] MEDS: NORMAL SALINE 1000 ML 1,000 ML IV PRN ×2 (10:30→11:53)
[2018-10-04 10:47] LABS: ABSOLUTE EOSINOPHILS # (AUTO) 0.1 10^3/uL (0.0-0.6); ABSOLUTE LYMPHOCYTES (AUTO) 1.1 10^3/uL (0.5-4.7); ABSOLUTE MONOCYTES (AUTO) 0.8 10^3/uL (0.1-1.4); ABSOLUTE NEUT (AUTO) 11.3 10^3/uL (1.7-8.2); BASOPHILS % (AUTO) 0.2 % (0-2); EOSINOPHILS % (AUTO) 0.6 % (0-6); HEMATOCRIT 42.2 % (36.0-47.0); HEMOGLOBIN 14.4 g/dL (12.0-15.5); LYMPHOCYTES % (AUTO) 8.5 % (13-45); MEAN CORPUSCULAR HGB CONC 34.1 g/dL (32.0-36.0); MEAN CORPUSCULAR VOLUME 91 fl (80-97); MONOCYTES % (AUTO) 6.2 % (3-13); PLATELET COUNT 253 10^3/uL (150-450); RED BLOOD COUNT 4.65 10^6/uL (3.72-5.28); RED CELL DISTRIBUTION WIDTH 14.7 % (11.5-14.0); SEGMENTED NEUTROPHILS % (AUTO) 84.5 % (42-78); TOTAL CELLS COUNTED % (AUTO) 100 %; WHITE BLOOD COUNT 13.4 10^3/uL (4.0-10.5)
[2018-10-04 11:52] LABS: ALANINE AMINOTRANSFERASE 21 U/L (9-52); ALBUMIN 3.7 g/dL (3.5-5.0); ALKALINE PHOSPHATASE 81 U/L (38-126); ANION GAP 12 (5-19); ASPARTATE AMINO TRANSFERASE 20 U/L (14-36); BILIRUBIN,DIRECT 0.4 mg/dL (0.0-0.4); BILIRUBIN,TOTAL 0.7 mg/dL (0.2-1.3); BLOOD UREA NITROGEN 7 mg/dL (7-20); CALCIUM 8.7 mg/dL (8.4-10.2); CARBON DIOXIDE 24 mmol/L (22-30); CHLORIDE 100 mmol/L (98-107); GLUCOSE 100 mg/dL (75-110); LIPASE 27.1 U/L (23-300); POTASSIUM 4.1 mmol/L (3.6-5.0); SODIUM 135.8 mmol/L (137-145); TOTAL PROTEIN 6.1 g/dL (6.3-8.2)
[2018-10-04 12:08] LABS: APPEARANCE,URINE CLEAR; BILIRUBIN,URINE NEGATIVE (NEGATIVE); COLOR,URINE YELLOW; GLUCOSE, URINE NEGATIVE (NEGATIVE); KETONES,URINE NEGATIVE (NEGATIVE); LEUKOCYTE ESTERASE,URINE NEGATIVE (NEGATIVE); NITRITE,URINE NEGATIVE (NEGATIVE); PROTEIN,URINE NEGATIVE (NEGATIVE); URINE SPECIFIC GRAVITY 1.003; UROBILINOGEN,URINE NEGATIVE mg/dL (<2.0)
--- NOTE | 2018-10-04 12:45 | ER Document Report ---
ED General - General Chief Complaint: Abdominal Pain Stated Complaint: ABDOMINAL PAIN Time Seen by Provider: 10/04/18 09:56 Mode of Arrival: Wheelchair Information source: Patient Notes: Patient presents emergency department with complaints for right lower quadrant abdominal pain for the past 3 days. She reports 3 days ago her abdomen started hurting so she stayed in bed all day. Yesterday she experienced extreme pain and still staying bed and then today just got worse. Reports it feels sharp and achy and feels like her abdomen is swollen. She reports she cannot buckle her pants. Patient reports the first day she vomited with diarrhea. She has not vomited since then. She reports she is only had 3 cups of bullae on for the past 3 days. She reports the first night she took Pepto but nothing really helped her. Patient does have a history of blood clots with a BKA. Reports she still on Xarelto. She is also treated for bipolar and hypertension. TRAVEL OUTSIDE OF THE [place] IN LAST 30 DAYS: No - Related Data Allergies/Adverse Reactions: Penicillins Allergy (Unknown, Verified 10/04/18 11:08) sulfamethoxazole [From Bactrim] Allergy (Unknown, Verified 10/04/18 11:08) trimethoprim [From Bactrim] Allergy (Unknown, Verified 10/04/18 11:08) clarithromycin [From Biaxin] Allergy (Verified 10/04/18 11:08) hydrocodone [Hydrocodone] Allergy (Verified 10/04/18 11:08) ketorolac tromethamine [From Toradol] Allergy (Verified 10/04/18 11:08) Past Medical History - General Information source: Patient - Social History Smoking Status: Unknown if Ever Smoked Family History: Reviewed & Not Pertinent, Other Patient has suicidal ideation: No Patient has homicidal ideation: No - Past Medical History Cardiac Medical History: Reports: Hx Coronary Artery Disease - high chol , Hx DVT, Hx Hypercholesterolemia, Hx Hypertension Denies: Hx Heart Attack Pulmonary Medical History: Reports: Hx Bronchitis Denies: Hx Asthma, Hx COPD, Hx Pneumonia Neurological Medical History: Reports: Hx Cerebrovascular Accident - 2005, Hx Seizures - Renal/ Medical History: Denies: Hx Peritoneal Dialysis Musculoskeletal Medical History: Denies Hx Arthritis Psychiatric Medical History: Reports: Hx Anxiety - panic attacks, Hx Bipolar Disorder, Hx Depression Traumatic Medical History: Reports: Hx Fractures Past Surgical History: Reports: Hx Hysterectomy, Hx Orthopedic Surgery - rbka 2013, Hx Tubal Ligation, Hx Vascular Surgery - Right leg arterial clot removal - Immunizations Immunizations up to date: No Hx Diphtheria, Pertussis, Tetanus Vaccination: Yes Physical Exam - Vital signs Vitals: Temp Pulse Resp BP Pulse Ox 99.0 F 108 H 18 123/75 98 10/04/18 09:38 10/04/18 09:38 10/04/18 09:38 10/04/18 09:38 10/04/18 09:38 - Notes Notes: PHYSICAL EXAMINATION: GENERAL: NONTOXIC LOOKING no acute distress HEAD: Atraumatic, normocephalic. EYES: Pupils equal round extraocular movements intact, sclera anicteric, conju nctiva are normal. ENT: nares patent, Moist mucous membranes. NECK: Normal range of motion, supple without lymphadenopathy LUNGS: CTAB and equal. No wheezes rales or rhonchi. HEART: Regular rate and rhythm without murmurs ABDOMEN: Soft, RLQ tenderness. No guarding, no rebound EXTREMITIES: Normal range of motion, RBKA NEUROLOGICAL: Cranial nerves grossly intact. PSYCH: Normal mood, normal affect. SKIN: Warm, Dry, normal turgor, no rashes or lesions noted Course - Re-evaluation Re-evalutation: 10/04/18 13:50 CT results returned acute appendicitis. Discussed with Dr. Zafar who is going to come over and see the patient. Last dose of Xarelto 2 days ago. Patient to go directly to the OR patient updated on plan of care verbalized understanding agrees with plan Dictation of this chart was performed using voice recognition software; therefore, there may be some unintended grammatical errors. - Vital Signs Vital signs: Temp Pulse Resp BP Pulse Ox 98.3 F 83 18 111/63 94 10/04/18 16:29 10/04/18 16:29 10/04/18 16:29 10/04/18 16:29 10/04/18 16:29 - Laboratory Result Diagrams: 10/04/18 10:26 10/04/18 11:20 Laboratory results interpreted by me: 10/04/18 10/04/18 10/04/18 10:26 11:20 11:50 WBC 13.4 H RDW 14.7 H Seg Neutrophils % 84.5 H Lymphocytes % 8.5 L Absolute Neutrophils 11.3 H Sodium 135.8 L Total Protein 6.1 L Urine Blood SMALL H - Diagnostic Test Radiology reviewed: Image reviewed, Reports reviewed - Acute appendicitis - Consults CHARISMA Time consulted: 14:00 Reason for consultation: 10/04/18 14:30 ACUTE APPENDICITIS Consulted provider: will come to ER - DR ZAFAR Discharge - Discharge Clinical Impression: Abdominal pain Qualifiers: Abdominal location: right lower quadrant Qualified Code(s): R10.31 - Right lower quadrant pain Acute appendicitis Qualifiers: Acute appendicitis type: with localized peritonitis Appendicitis gangrene presence: unspecified whether gangrene present Appendicitis perforation presence: without perforation Appendicitis abscess presence: unspecified whether abscess present Qualified Code(s): K35.30 - Acute appendicitis with localized peritonitis, without perforation or gangrene Condition: Stable Disposition: OTHER Admitting Provider: Surgicalist
[2018-10-04] MEDS ORDERED: FENTANYL CITRATE INJ/PF 100 MCG/2 ML AMPUL IV ONE (12:51)
--- NOTE | 2018-10-04 13:46 | RADIOLOGY REPORT (SQ) ---
EXAM DESCRIPTION: CT ABD/PELVIS WITH IV ORAL COMPLETED DATE/TIME: 10/04/2018 1:28 pm REASON FOR STUDY: rlq abdominal pain COMPARISON: CT abdomen pelvis 04/04/2016 TECHNIQUE: CT scan of the abdomen and pelvis performed using helical scanning technique with dynamic intravenous contrast injection. Patient drank oral contrast. Images reviewed with lung, soft tissue , and bone windows. Reconstructed coronal and sagittal MPR images reviewed. Delayed images for evalua tion of the urinary system also acquired. All images stored on PACS. All CT scanners at this facility use dose modulation, iterative reconstruction, and/or weight based d osing when appropriate to reduce radiation dose to as low as reasonably achievable (ALARA). [facility]: Dose Right [facility]: CareDose [facility]: Dose Right [facility]: Teradose 4D [facility]: [employer] CONTRAST TYPE AND DOSE: contrast/concentration: Isovue 350.00 mg/ml; Total Contrast Delivered: 96.0 ml; Total Saline Delivered: 65.0 ml RENAL FUNCTION: Creatinine 0.5 RADIATION DOSE: CT Rad equipment meets quality standard of care and radiation dose reduction techniq ues were employed. CTDIvol: 14.5 - 18.2 mGy. DLP: 1794 mGy-cm.. LIMITATIONS: None. FINDINGS: Appendix is dilated, fluid-filled, with surrounding inflammation in the periappendiceal f at from acute appendicitis. No abscess. No gross free intraperitoneal air. Findings called to Dr. Mathews in the emergency room, 1330 hours 10/04/2018. LOWER CHEST: No significant findings. No nodules or infiltrates. LIVER: Normal size. No masses. No dilated ducts. SPLEEN: Normal size. No focal lesions. PANCREAS: No masses. No significant calcifications. No adjacent inflammation or peripancreatic fluid collections. Pancreatic duct not dilated. GALLBLADDER: No identified stones by CT criteria. No inflammatory changes to suggest cholecystitis. ADRENAL GLANDS: No significant masses or asymmetry. RIGHT KIDNEY AND URETER: No solid masses. No significant calcifications. No hydronephrosis or hyd roureter. LEFT KIDNEY AND URETER: No solid masses. No significant calcifications. No hydronephrosis or hydr oureter. AORTA AND VESSELS: Atherosclerotic aortoiliac calcification is present with bilateral common iliac ar terial vascular stents RETROPERITONEUM: No retroperitoneal adenopathy, hemorrhage or masses. BOWEL AND PERITONEAL CAVITY: Patient drank oral contrast. No CT evidence of bowel obstruction. No f ree intraperitoneal air or fluid. APPENDIX: Acute appendicitis as above PELVIS: No mass. No free fluid. Normal bladder. Post hysterectomy. Normal size left ovary axial im age 67 through 71. Right ovary not identified. ABDOMINAL WALL: No masses. No hernias. BONES: No significant or acute findings. OTHER: No other significant finding. IMPRESSION: Acute appendicitis COMMENT: Findings called to Dr. Mathews in the emergency room, 1330 hours 10/04/2018. TECHNICAL DOCUMENTATION: JOB ID: [id number] Quality ID # [id number]: Final reports with documentation of one or more dose reduction techniques (e.g., Au tomated exposure control, adjustment of the mA and/or kV according to patient size, use of iterative reconstruction technique) 2010 [employer]- All Rights Reserved Reading location - IP/workstation name: [email or web address]
[2018-10-04] MEDS ORDERED: MORPHINE SULFATE 10 MG/ML INJ IV ONE (14:51)
[2018-10-04] MEDS ORDERED: NORMAL SALINE 1000 ML 1,000 ML IV PRN (15:00)
[2018-10-04] MEDS ORDERED: NORMAL SALINE 1000 ML 2,000 ML IV ONE (15:00)
--- NOTE | 2018-10-04 15:00 | PDOC H&P ---
History of Present Illness Admission Date/PCP: 10/04/18 13:59 CHELSI HERNANDEZ MD Patient complains of: RLQ abdominal pain History of Present Illness: ROSANGELA MUELLER is a 53 year old female with a 3 day hx of abdominal pain, mainly RLQ, nausea, vomiting, diarrhea on the first day, then abdominal pain on;y. She presented to the ED with the above complaints and a CT scan A/P was done and it is significant for acute, nonperforated appendicitis. Past Medical History Cardiac Medical History: Reports: Coronary Artery Disease - high chol , DVT, Hyperlipidema, Hypertension Denies: Myocardial Infarction Pulmonary Medical History: Reports: Bronchitis Denies: Asthma, Chronic Obstructive Pulmonary Disease (COPD), Pneumonia Neurological Medical History: Reports: Seizures - Musculoskeltal Medical History: Denies: Arthritis Psychiatric Medical History: Reports: Bipolar Disorder, Depression Hematology: Denies: Anemia Past Surgical History Past Surgical History: Reports: Amputation - R BKA 5 years ago, Hysterectomy, Orthopedic Surgery - 2013, Tubal Ligation, Vascular Surgery - Right leg arterial clot removal; bilateral iliac artery stent placement Social History Smoking Status: Current Every Day Smoker Frequency of Alcohol Use: None Hx Recreational Drug Use: No Drugs: None Family History Family History: Reviewed & Not Pertinent, Other Parental Family History Reviewed: No Children Family History Reviewed: No Sibling(s) Family History Reviewed.: No Medication/Allergy Home Medications: Pregabalin [Lyrica 50 Mg Capsule] 200 mg PO TID 09/29/13 Valacyclovir HCl [Valtrex 500 Mg Tablet] 500 mg PO PRN 09/29/13 Amlodipine Besylate 10 mg PO DAILY 01/24/15 Rivaroxaban [Xarelto] 20 mg PO DAILY 01/24/15 Albuterol Sulfate [Proair Hfa Inhalation Aerosol 8.5 gm Mdi] 1 puff IH Q4 PRN 01/03/17 Alendronate Sodium [Fosamax 70 mg Tablet] 70 mg PO DAILY 01/03/17 Atorvastatin Calcium [Lipitor 40 mg Tablet] 40 mg PO DAILY 01/03/17 Brexpiprazole [Rexulti] 2 mg PO DAILY 01/03/17 Budesonide/Formoterol Fumarate [Symbicort Hfa 160-4.5 Mcg Inhaler 6 gm] 1 puff IH Q12 01/03/17 Fluticasone Propionate [Flonase Nasal Grampian 50 Mcg/Grampian 16 gm] 1 spray NASL Q12 01/03/17 Trazodone HCl 150 mg PO DAILY 01/03/17 Amitriptyline HCl [Elavil 50 mg Tablet] 50 mg PO DAILY 09/25/17 Fluvoxamine Maleate 100 mg PO DAILY 09/25/17 Oxycodone HCl 10 mg PO TID 09/25/17 Ranitidine HCl 150 mg PO BID 09/25/17 Allergies/Adverse Reactions: Penicillins Allergy (Unknown, Verified 10/04/18 11:08) sulfamethoxazole [From Bactrim] Allergy (Unknown, Verified 10/04/18 11:08) trimethoprim [From Bactrim] Allergy (Unknown, Verified 10/04/18 11:08) clarithromycin [From Biaxin] Allergy (Verified 10/04/18 11:08) hydrocodone [Hydrocodone] Allergy (Verified 10/04/18 11:08) ketorolac tromethamine [From Toradol] Allergy (Verified 10/04/18 11:08) Physical Exam Vital Signs: Temp Pulse Resp BP Pulse Ox 98.7 F 84 20 133/64 H 97 10/04/18 13:42 10/04/18 13:42 10/04/18 13:42 10/04/18 13:42 10/04/18 13:42 Intake & Output 10/03/18 10/04/18 10/05/18 06:59 06:59 06:59 Intake Total 1000 Balance 1000 Weight 84.2 kg General appearance: PRESENT: no acute distress Head exam: PRESENT: atraumatic Eye exam: PRESENT: EOMI, PERRLA Mouth exam: PRESENT: dry mucosa, neck supple Neck exam: PRESENT: full ROM Respiratory exam: PRESENT: rhonchi - bilaterally Cardiovascular exam: PRESENT: other - no palpable pulses left foot Vascular exam: PRESENT: normal capillary refill - left foot Extremities exam: PRESENT: full ROM - both upper and LLE;, other - Right BKA Musculoskeletal exam: PRESENT: other - right BKA Neurological exam: PRESENT: alert, oriented to person, oriented to place, oriented to time, oriented to situation Psychiatric exam: PRESENT: appropriate affect Skin exam: PRESENT: normal color Results Laboratory Results: 10/04/18 10:26 10/04/18 11:20 10/04/18 10/04/18 10/04/18 10:26 10:26 10:26 WBC 13.4 H RBC 4.65 Hgb 14.4 Hct 42.2 MCV 91 MCH 31.0 MCHC 34.1 RDW 14.7 H Plt Count 253 Seg Neutrophils % 84.5 H Lymphocytes % 8.5 L Monocytes % 6.2 Eosinophils % 0.6 Basophils % 0.2 Absolute Neutrophils 11.3 H Absolute Lymphocytes 1.1 Absolute Monocytes 0.8 Absolute Eosinophils 0.1 Absolute Basophils 0.0 Sodium Cancelled Potassium Cancelled Chloride Cancelled Carbon Dioxide Cancelled Anion Gap Cancelled BUN Cancelled Creatinine Cancelled Est GFR ( Amer) Cancelled Est GFR (Non-Af Amer) Cancelled Glucose Cancelled Calcium Cancelled Total Bilirubin Cancelled AST Cancelled ALT Cancelled Alkaline Phosphatase Cancelled Total Protein Cancelled Albumin Cancelled Lipase Cancelled Serum HCG, Qual NEGATIVE Urine Color Urine Appearance Urine pH Ur Specific [place] Urine Protein Urine Glucose (UA) Urine Ketones Urine Blood Urine Nitrite Ur Leukocyte Esterase Urine WBC (Auto) Urine RBC (Auto) 10/04/18 10/04/18 11:20 11:50 WBC RBC Hgb Hct MCV MCH MCHC RDW Plt Count Seg Neutrophils % Lymphocytes % Monocytes % Eosinophils % Basophils % Absolute Neutrophils Absolute Lymphocytes Absolute Monocytes Absolute Eosinophils Absolute Basophils Sodium 135.8 L Potassium 4.1 Chloride 100 Carbon Dioxide 24 Anion Gap 12 BUN 7 Creatinine 0.53 Est GFR ( Amer) > 60 Est GFR (Non-Af Amer) > 60 Glucose 100 Calcium 8.7 Total Bilirubin 0.7 AST 20 ALT 21 Alkaline Phosphatase 81 Total Protein 6.1 L Albumin 3.7 Lipase 27.1 Serum HCG, Qual Urine Color YELLOW Urine Appearance CLEAR Urine pH 7.0 Ur Specific [place] 1.003 Urine Protein NEGATIVE Urine Glucose (UA) NEGATIVE Urine Ketones NEGATIVE Urine Blood SMALL H Urine Nitrite NEGATIVE Ur Leukocyte Esterase NEGATIVE Urine WBC (Auto) 2 Urine RBC (Auto) 0 Impressions: Abdomen/Pelvis CT 10/04/18 00:00 IMPRESSION: Acute appendicitis Assessment & Plan - Diagnosis (1) Abdominal pain Qualifiers: Abdominal location: right lower quadrant Qualified Code(s): R10.31 - Right lower quadrant pain (2) Acute appendicitis Qualifiers: Acute appendicitis type: with localized peritonitis Appendicitis gangrene presence: unspecified whether gangrene present Appendicitis perforation presence: without perforation Appendicitis abscess presence: unspecified whether abscess present Qualified Code(s): K35.30 - Acute appendicitis with localized peritonitis, without perforation or gangrene Is this a current diagnosis for this admission?: Yes - Plan Summary Plan Summary: A/ Abdominal pain x 3 days, nausea Leukocytosis Acute appendicitis noncomplicated on CT scan A/P Hx of Vascular Surgery procedure 5 yrs ago (bilateral iliac artery stent placement) Right BKA for decreased blood flow 5 yrs. ago P/ NPO IVF bolus plus maintenance IV Abx (Cipro 400 mg IVPB, Flagyl 500 mg IVPB) Plan laparoscopic appendectomy, possible open. Procedure, risks, benefits, complications, including bowel perforation, bleeding, pneumonia, strike, and discussed with the patient, her questions were answered and she decided to proceed
[2018-10-04] MEDS ORDERED: GLUCAGON,HUMAN RECOMB 1 MG INJ SUBCUT PRN (15:01)
[2018-10-04] MEDS ORDERED: DEXTROSE 50%-WATER 25 GM/50 ML DISP.SYRIN IV PRN ×2 (15:01)
[2018-10-04] MEDS ORDERED: DEXTROSE 40% GEL 15 GM TUBE PO PRN ×2 (15:01)
[2018-10-04] MEDS: METRONIDAZOLE 500 MG/NS RTU 500 MG/100 ML RTUPB IV SCH ×3 (15:36→23:25)
[2018-10-04] MEDS ORDERED: DEXAMETHASONE SOD PHOSPHATE INJ 4 MG/1 ML VIAL ONE (18:06)
[2018-10-04] MEDS ORDERED: MIDAZOLAM 2 MG/2 ML INJ ONE (18:06)
[2018-10-04] MEDS ORDERED: FENTANYL CITRATE INJ/PF 100 MCG/2 ML AMPUL ONE ×2 (18:06→19:45)
[2018-10-04] MEDS ORDERED: MORPHINE SULFATE 10 MG/ML INJ ONE (18:06)
[2018-10-04] MEDS ORDERED: PROPOFOL INJ 200 MG/20 ML VIAL IV ONE (18:06)
[2018-10-04] MEDS ORDERED: ONDANSETRON HCL INJ/PF 4 MG/2 ML SDV ONE (18:06)
[2018-10-04] MEDS ORDERED: BUPIVACAINE HCL 0.5%-EPI 1:200000 INJ/PF 30 ML VIAL ONE (18:07)
[2018-10-04] MEDS ORDERED: NEOSTIGMINE METHYLSULFATE 10 MG/10 ML VIAL ONE (19:08)
[2018-10-04] MEDS ORDERED: SUCCINYLCHOLINE CHLORIDE INJ 200 MG/10 ML VIAL ONE (19:08)
[2018-10-04] MEDS ORDERED: ROCURONIUM BROMIDE INJ 50 MG/5 ML VIAL IV ONE (19:08)
[2018-10-04] MEDS ORDERED: GLYCOPYRROLATE 1 MG/5 ML SYRINGE ONE (19:08)
[2018-10-04] MEDS ORDERED: HYDROMORPHONE HCL INJ/PF 2 MG/ML AMPULE ONE ×2 (19:47→19:48)
[2018-10-04] MEDS ORDERED: FENTANYL CITRATE INJ/PF 100 MCG/2 ML AMPUL IV PRN ×3 (20:18)
[2018-10-04] MEDS ORDERED: MORPHINE SULFATE 10 MG/ML INJ IV PRN (20:18)
[2018-10-04] MEDS ORDERED: MEPERIDINE HCL/PF INJ 25 MG/1 ML DISP.SYRIN IV PRN (20:18)
[2018-10-04] MEDS ORDERED: DIPHENHYDRAMINE HCL 50 MG/ML VIAL IV PRN (20:18)
[2018-10-04] MEDS ORDERED: PROMETHAZINE HCL INJ 25 MG/1 ML VIAL IV PRN ×2 (20:18)
--- NOTE | 2018-10-04 20:27 | Operative Report ---
Nonrecallable Operative Report DATE OF SURGERY: 10/04/18 PREOPERATIVE DIAGNOSIS: acute appendicitis POSTOPERATIVE DIAGNOSIS: same, exudative type OPERATION: laparoscopic appendectomy SURGEON: MORGAN ZAFAR ANESTHESIA: GA - plus 20 mL 1% lido w/o epinephrine TISSUE REMOVED OR ALTERED: appendix COMPLICATIONS: n/a ESTIMATED BLOOD LOSS: < 5 mL INTRAOPERATIVE FINDINGS: acute exudative appendicitis PROCEDURE: see dictation
[2018-10-04] MEDS ORDERED: ONDANSETRON HCL INJ/PF 4 MG/2 ML SDV IV PRN (20:34)
[2018-10-04] MEDS: CIPROFLOXACIN 400 MG/D5W RTU 400 MG/200 ML RTUPB IV SCH ×2 (20:58→21:09)
--- NOTE | 2018-10-04 21:04 | OPERATIVE REPORT E ---
Operative Report NAME: ROSANGELA MUELLER : 1965 AGE: 53Y DATE OF SURGERY: 10/04/2018 ROOM: 415 PREOPERATIVE DIAGNOSIS: ACUTE APPENDICITIS. POSTOPERATIVE DIAGNOSIS: ACUTE APPENDICITIS, EXUDATIVE TYPE. OPERATION: Laparoscopic appendectomy. SURGEON: MORAGN ZAFAR M.D. SENIOR ORACLE DEVELOPER: None. ESTIMATED BLOOD LOSS: None. COMPLICATIONS: None. ANESTHESIA: General plus 20 mL of 1% lidocaine with epinephrine. FLUIDS: 800. URINE OUTPUT: 400. INDICATION AND FINDINGS: A 53-year-old female seen in the emergency room with a history of right lower quadrant pain for 3 days. WBC of 14,000. CAT scan of abdomen and pelvis is indicative for acute appendicitis. Procedure, risks, benefits and complications explained to the patient, who understands. Her questions were answered. She decided to proceed with laparoscopic appendectomy, possibly open. PROCEDURE: The procedure was done in the operating room. Patient placed in supine position. Anesthesia given by endotracheal intubation. A Jaramillo catheter was inserted. Abdomen prepped and draped in usual fashion. Incision was made just above the umbilicus. The skin was tented with towel clips. Through a 5-mm portal, scope was inserted into the peritoneal cavity. CO2 pneumoperitoneum was established. A 5-mm port was then placed in the right lower quadrant of the abdomen, under direct visualization. The 5-mm port over the umbilicus was removed and replaced with a 12-mm port, and the 5-mm port was then inserted in the left lower quadrant of the abdomen under direct visualization as well. The patient was placed in Trendelenburg position with the right side elevated. The cecum was identified medially and the base of the appendix was seen. The appendix was then followed and found to be adherent against the retroperitoneum. There was evidence of purulent material surrounding the appendix. The appendix was then stretched upward and mesoappendix was divided at the base of the appendix using a LigaSure. The appendix was stapled at the base with the laparoscopic stapler, extracted from the peritoneal cavity using an Endo bag. CO2 pneumoperitoneum was then established. The staple line of the appendiceal base was found to be intact. The peritoneal cavity was irrigated with normal saline until clear using 1.5 liters of warm normal saline. Some of the intraperitoneal fluid identified was aspirated and sent for aerobic and anaerobic cultures and gram stain. Under direct visualization, using a fascia closure device, an 0 Vicryl [id number] suture was placed to close the umbilical fascial defect and the suture was left untied. Finally a 12-mm round Marcus drain was inserted through the umbilical port and extracted through the left lower quadrant port and placed under direct visualization in the right lower quadrant. The drain was then secured to the skin with a 2-0 nylon suture. The suture of the umbilical defect was then tied. All skin incisions were closed with 4-0 Vicryl running subcuticular suture with Vicryl and Dermabond was applied. The patient tolerated the procedure well, extubated and transferred to the recovery room in satisfactory condition. DICTATING PHYSICIAN: MORGAN ZAFAR M.D. [id number] [facility]#: [id number] 2019 ID: [id number] JOB#: [id number] ACCT: [id number] cc:MORGAN ZAFAR M.D. > MTDD
[2018-10-04] MEDS: MORPHINE SULFATE 10 MG/ML INJ IV PRN (22:35)
[2018-10-05] MEDS: MORPHINE SULFATE 10 MG/ML INJ IV PRN ×2 (02:06→06:43)
[2018-10-05] MEDS: METRONIDAZOLE 500 MG/NS RTU 500 MG/100 ML RTUPB IV SCH ×2 (05:09→12:51)
[2018-10-05 06:06] LABS: ABSOLUTE LYMPHOCYTES (AUTO) 0.8 10^3/uL (0.5-4.7); ABSOLUTE NEUT (AUTO) 13.6 10^3/uL (1.7-8.2); BASOPHILS % (AUTO) 0.2 % (0-2); HEMATOCRIT 35.8 % (36.0-47.0); LYMPHOCYTES % (AUTO) 5.3 % (13-45); MEAN CORPUSCULAR HEMOGLOBIN 30.7 pg (27.0-33.4); MEAN CORPUSCULAR HGB CONC 32.8 g/dL (32.0-36.0); MEAN CORPUSCULAR VOLUME 94 fl (80-97); MONOCYTES % (AUTO) 6.7 % (3-13); RED BLOOD COUNT 3.83 10^6/uL (3.72-5.28); RED CELL DISTRIBUTION WIDTH 14.2 % (11.5-14.0); SEGMENTED NEUTROPHILS % (AUTO) 87.8 % (42-78); TOTAL CELLS COUNTED % (AUTO) 100 %; WHITE BLOOD COUNT 15.5 10^3/uL (4.0-10.5)
[2018-10-05 06:21] LABS: ANION GAP 11 (5-19); BLOOD UREA NITROGEN 4 mg/dL (7-20); CALCIUM 8.9 mg/dL (8.4-10.2); CARBON DIOXIDE 24 mmol/L (22-30); CHLORIDE 103 mmol/L (98-107); GLUCOSE 115 mg/dL (75-110); HEMOGLOBIN 11.8 g/dL (12.0-15.5); PLATELET COUNT 192 10^3/uL (150-450); POTASSIUM 4.5 mmol/L (3.6-5.0); SODIUM 137.7 mmol/L (137-145)
--- NOTE | 2018-10-05 07:44 | EKG REPORT ---
SEVERITY:- NORMAL ECG - SINUS RHYTHM : Confirmed by: Bishnu Phillips MD 05-Oct-2018 07:43:26
[2018-10-05] MEDS ORDERED: NICOTINE 21 MG/24 HR PATCH.TD24 TD SCH (10:00)
[2018-10-05] MEDS ORDERED: FAMOTIDINE 20 MG TABLET PO SCH (10:00)
--- NOTE | 2018-10-05 10:18 | PDOC PROGRESS REPORT ---
Subjective Progress Note for:: 10/05/18 Subjective:: comfortable Reason For Visit: ACUTE SUPPERATIVE APPENDICITIS WITH LOCALIZED Physical Exam Vital Signs: Temp Pulse Resp BP Pulse Ox 98.1 F 76 20 133/60 H 92 10/05/18 07:53 10/05/18 07:53 10/05/18 07:53 10/05/18 07:53 10/05/18 08:46 Pulse Oximeter Continuous Start: 10/04/18 21:15 Freq: RTQ4 Status: Active Protocol: Document 10/05/18 08:46 DBE (Rec: 10/05/18 08:47 DBE [id number]) Pulse Oximetry Assessment Oxygen Saturation (92-100) 92 Oxygen Delivery Method Room Air Fraction of Inspired Oxygen (FIO2) 21 Equipment Usage Equipment in Use Continuous SpO2 Machine # 8 Intake & Output 10/04/18 10/05/18 10/06/18 06:59 06:59 06:59 Intake Total 5338 1000 Output Total 905 Balance 4433 1000 Weight 84.2 kg General appearance: PRESENT: no acute distress, cooperative Respiratory exam: PRESENT: clear to auscultation lupe Cardiovascular exam: PRESENT: RRR GI/Abdominal exam: PRESENT: normal bowel sounds, soft, other - all incisions are C/D/I, ecchimosis at umbilicus, LLQ drain in place with clear fluid Results Laboratory Results: 10/05/18 05:38 10/05/18 05:38 10/04/18 10/04/18 10/04/18 10:26 10:26 10:26 WBC 13.4 H RBC 4.65 Hgb 14.4 Hct 42.2 MCV 91 MCH 31.0 MCHC 34.1 RDW 14.7 H Plt Count 253 Seg Neutrophils % 84.5 H Lymphocytes % 8.5 L Monocytes % 6.2 Eosinophils % 0.6 Basophils % 0.2 Absolute Neutrophils 11.3 H Absolute Lymphocytes 1.1 Absolute Monocytes 0.8 Absolute Eosinophils 0.1 Absolute Basophils 0.0 Sodium Cancelled Potassium Cancelled Chloride Cancelled Carbon Dioxide Cancelled Anion Gap Cancelled BUN Cancelled Creatinine Cancelled Est GFR ( Amer) Cancelled Est GFR (Non-Af Amer) Cancelled Glucose Cancelled Calcium Cancelled Total Bilirubin Cancelled AST Cancelled ALT Cancelled Alkaline Phosphatase Cancelled Total Protein Cancelled Albumin Cancelled Lipase Cancelled Serum HCG, Qual NEGATIVE Urine Color Urine Appearance Urine pH Ur Specific [place] Urine Protein Urine Glucose (UA) Urine Ketones Urine Blood Urine Nitrite Ur Leukocyte Esterase Urine WBC (Auto) Urine RBC (Auto) Blood Type Antibody Screen 10/04/18 10/04/18 10/04/18 11:20 11:50 15:35 WBC RBC Hgb Hct MCV MCH MCHC RDW Plt Count Seg Neutrophils % Lymphocytes % Monocytes % Eosinophils % Basophils % Absolute Neutrophils Absolute Lymphocytes Absolute Monocytes Absolute Eosinophils Absolute Basophils Sodium 135.8 L Potassium 4.1 Chloride 100 Carbon Dioxide 24 Anion Gap 12 BUN 7 Creatinine 0.53 Est GFR ( Amer) > 60 Est GFR (Non-Af Amer) > 60 Glucose 100 Calcium 8.7 Total Bilirubin 0.7 AST 20 ALT 21 Alkaline Phosphatase 81 Total Protein 6.1 L Albumin 3.7 Lipase 27.1 Serum HCG, Qual Urine Color YELLOW Urine Appearance CLEAR Urine pH 7.0 Ur Specific [place] 1.003 Urine Protein NEGATIVE Urine Glucose (UA) NEGATIVE Urine Ketones NEGATIVE Urine Blood SMALL H Urine Nitrite NEGATIVE Ur Leukocyte Esterase NEGATIVE Urine WBC (Auto) 2 Urine RBC (Auto) 0 Blood Type A NEGATIVE Antibody Screen NEGATIVE 10/05/18 10/05/18 05:38 05:38 WBC 15.5 H RBC 3.83 Hgb 11.8 L D Hct 35.8 L MCV 94 MCH 30.7 MCHC 32.8 RDW 14.2 H Plt Count 192 Seg Neutrophils % 87.8 H Lymphocytes % 5.3 L Monocytes % 6.7 Eosinophils % 0.0 Basophils % 0.2 Absolute Neutrophils 13.6 H Absolute Lymphocytes 0.8 Absolute Monocytes 1.0 Absolute Eosinophils 0.0 Absolute Basophils 0.0 Sodium 137.7 Potassium 4.5 Chloride 103 Carbon Dioxide 24 Anion Gap 11 BUN 4 L Creatinine 0.44 L Est GFR ( Amer) > 60 Est GFR (Non-Af Amer) > 60 Glucose 115 H Calcium 8.9 Total Bilirubin AST ALT Alkaline Phosphatase Total Protein Albumin Lipase Serum HCG, Qual Urine Color Urine Appearance Urine pH Ur Specific [place] Urine Protein Urine Glucose (UA) Urine Ketones Urine Blood Urine Nitrite Ur Leukocyte Esterase Urine WBC (Auto) Urine RBC (Auto) Blood Type Antibody Screen Impressions: Abdomen/Pelvis CT 10/04/18 00:00 IMPRESSION: Acute appendicitis Assessment & Plan - Diagnosis (1) Abdominal pain Qualifiers: Abdominal location: right lower quadrant Qualified Code(s): R10.31 - Right lower quadrant pain Is this a current diagnosis for this admission?: Yes (2) Acute appendicitis Qualifiers: Acute appendicitis type: with localized peritonitis Appendicitis gangrene presence: unspecified whether gangrene present Appendicitis perforation presence: without perforation Appendicitis abscess presence: unspecified whether abscess present Qualified Code(s): K35.30 - Acute appendicitis with localized peritonitis, without perforation or gangrene Is this a current diagnosis for this admission?: Yes - Plan Summary Plan Summary: A/ POD#1 after lap appy for exudative acute appendicitis Patient comfortable VSS, AF MANUEL output 200 mL, clear, most likely irrigation fluid Good UO WBC increased to 15.5 today from 13.4 yesterday, most likely reactive leuokocytosis Abdomen soft; LLQ drain P/ Heplock IVF Regular diet Stop narcotics Tylenol and Motrin p.r.n. for pain Check blood work in AM Continue hospitalization until WBC approaches normal value
[2018-10-05] MEDS: CIPROFLOXACIN 400 MG/D5W RTU 400 MG/200 ML RTUPB IV SCH (10:34)
[2018-10-05] MEDS: ACETAMINOPHEN 325 MG TABLET PO SCH ×2 (12:51→17:49)
[2018-10-05] MEDS ORDERED: IBUPROFEN 400 MG TABLET PO SCH (14:00)
[2018-10-05 15:52] VITALS: BP 123/92
--- NOTE | 2018-10-06 08:04 | DISCHARGE SUMMARY E ---
Discharge Summary NAME: ROSANGELA MUELLER : 1965 AGE: 53Y ADMITTED: 10/04/2018 DISCHARGED/AMA: 10/05/2018 FINAL DIAGNOSIS: Acute exudative appendicitis. PROCEDURE: Laparoscopic appendectomy done on 10/04/2018. COMPLICATIONS: None. HOSPITAL COURSE: This is a 53-year-old female who presented to the emergency room with a 3-day history of right-sided abdominal pain, intense nausea, initial diarrhea, and emesis when the pain started. A CAT scan of the abdomen and pelvis was done and revealed acute appendicitis without perforation. Her white blood cell count was elevated at 13.5 on admission. The patient was admitted for surgical management and underwent uneventful laparoscopic appendectomy. The appendix appeared to be coated with purulent material; however, no petr perforation was identified. A drain was then left intraperitoneally. The patient was transferred to the floor. Postop course was unremarkable. Vital signs remained stable. She was afebrile. White blood cell count increased to 15,000 the day after and a decision was made to keep the patient hospitalized untiul the WBC would normalize. The patient was tolerating p.o. well. Her fluids were hep-locked. She was started on a regular diet. The patient was getting pain medications orally. However, during the day the patient made the decision to leave the hospital AMA as she was getting "bored." The patient was discharged during the day. She has a round 18-Thai Marcus drain in the pelvis which was not removed. The patient was given instructions, if she wanted, to return to our office in 1 week. DICTATING PHYSICIAN: MORGAN ZAFAR M.D. [id number] Y#: [id number] ID: [id number] JOB#: [id number] ACCT: [id number] cc:MORGAN ZAFAR M.D. > MTDD
== END 2018-10-05 19:14 | disposition home or self-care (01) | DRG 343 ==
LOC: ER 09:24 → EH 13:59 → 4N 16:22
PROVIDERS: ADMIT Surgery; ATTEND Surgery
PROC: 5A09357 Assistance with Respiratory Ventilation, Less than 24 Consecutive Hours, Continuous Positive Airway Pressure (ICD-10-PCS; 2018-10-04)
PROC: 0DTJ4ZZ Resection of Appendix, Percutaneous Endoscopic Approach (ICD-10-PCS; principal; 2018-10-04 17:45)
DX: K35.30 Acute appendicitis with localized peritonitis, without perforation or gangrene (principal); I25.10 Atherosclerotic heart disease of native coronary artery without angina pectoris; E78.5 Hyperlipidemia, unspecified; I10 Essential (primary) hypertension; F31.9 Bipolar disorder, unspecified; F41.0 Panic disorder [episodic paroxysmal anxiety]; E86.0 Dehydration; F17.200 Nicotine dependence, unspecified, uncomplicated; Z86.718 Personal history of other venous thrombosis and embolism; Z89.511 Acquired absence of right leg below knee; Z90.710 Acquired absence of both cervix and uterus; Z95.5 Presence of coronary angioplasty implant and graft; Z79.899 Other long term (current) drug therapy; Z79.1 Long term (current) use of non-steroidal anti-inflammatories (NSAID); Z79.83 Long term (current) use of bisphosphonates; Z79.891 Long term (current) use of opiate analgesic; Z88.0 Allergy status to penicillin; Z88.6 Allergy status to analgesic agent; Z88.3 Allergy status to other anti-infective agents; Z88.2 Allergy status to sulfonamides; Z88.8 Allergy status to other drugs, medicaments and biological substances; Z86.73 Personal history of transient ischemic attack (TIA), and cerebral infarction without residual deficits
CPT/HCPCS: 36415; 74177; 80048; 80053; 81001; 83690; 840; 84703; 85025; 86850; 86900; 86901; 87040; 87070; 87075; 87077; 87086; 87186; 87205; 88304; 93005; 93010; 94762; 96361; 96374; 96375; 99285; J0330; J0744; J1100; J1170; J2250; J2270; J2405; J2704; J2710; J3010; J3490; J7030

== ENCOUNTER → 2018-10-12 | Outpatient (CLI) | payer MEDICAID ==
[2018-10-12 16:56] LABS: ABSOLUTE BASOPHILS # (AUTO) 0.1 10^3/uL (0.0-0.2); ABSOLUTE EOSINOPHILS # (AUTO) 0.5 10^3/uL (0.0-0.6); ABSOLUTE LYMPHOCYTES (AUTO) 2.1 10^3/uL (0.5-4.7); ABSOLUTE MONOCYTES (AUTO) 1.1 10^3/uL (0.1-1.4); ABSOLUTE NEUT (AUTO) 9.3 10^3/uL (1.7-8.2); BASOPHILS % (AUTO) 0.7 % (0-2); EOSINOPHILS % (AUTO) 3.7 % (0-6); HEMATOCRIT 38.7 % (36.0-47.0); HEMOGLOBIN 12.8 g/dL (12.0-15.5); LYMPHOCYTES % (AUTO) 15.9 % (13-45); MEAN CORPUSCULAR HEMOGLOBIN 30.4 pg (27.0-33.4); MEAN CORPUSCULAR HGB CONC 33.1 g/dL (32.0-36.0); MEAN CORPUSCULAR VOLUME 92 fl (80-97); MONOCYTES % (AUTO) 8.2 % (3-13); PLATELET COUNT 374 10^3/uL (150-450); RED BLOOD COUNT 4.22 10^6/uL (3.72-5.28); RED CELL DISTRIBUTION WIDTH 14.3 % (11.5-14.0); SEGMENTED NEUTROPHILS % (AUTO) 71.5 % (42-78); TOTAL CELLS COUNTED % (AUTO) 100 %
== END ==
LOC: LAB 16:26
PROVIDERS: ATTEND Surgery
DX: Z90.49 Acquired absence of other specified parts of digestive tract (principal); R10.9 Unspecified abdominal pain
CPT/HCPCS: 36415; 85025

== ENCOUNTER 2019-01-13 07:33 | Day surgery (SDC) | payer MEDICAID ==
[~2019-01-13 07:33] MED LIST: PROPOFOL INJ 200 MG/20 ML VIAL IV ONE
[2019-01-13 09:17] VITALS: BP 149/62
--- NOTE | 2019-01-13 11:59 | Operative Report ---
Operative Report DATE OF SURGERY: 01/13/19 Operative Report: The risks, benefits and alternatives of the procedure including the risk of bleeding, perforation requiring surgery have been explained to the patient in detail and informed consent has been obtained. The patient is placed in a left, lateral decubital position. Timeout was called. Propofol medication is administered. Rectal examination is done which did not reveal any masses, tears or fissures. An Olympus videoscope was introduced into the patient's rectum and advanced all the way to the cecum. Unfortunately is a very poor prep. The cecum was able to be identified with the usual anatomical landmarks but because of the burden of stool some areas could not be properly evaluated. Starting from the cecum the scope was then sequentially withdrawn through the various segments of the colon retroflexion maneuver is performed. The risks benefits and alternatives of the procedure explained to the patient in detail and informed consent is obtained.A GIF Olympus video scope was inserted into the patient's mouth and hypopharynx, the esophagus is identified intubated and insufflated, the scope was then advanced through the esophagus stomach and duodenum ,retroflexion maneuver is done ,the esophagus stomach and first and second portions of the duodenum examined. PREOPERATIVE DIAGNOSIS: Colorectal cancer screening. Gastroesophageal reflux disease POSTOPERATIVE DIAGNOSIS: Poorly prep colon. Inflammation noted right side of the colon status post biopsy. Internal hemorrhoids. Gastritis status post biopsy rule out Helicobacter pylori OPERATION: Colonoscopy with biopsy. EGD with biopsy SURGEON: NIKKO OLIVIERA ANESTHESIA: LMAC TISSUE REMOVED OR ALTERED: As noted above. COMPLICATIONS: None. ESTIMATED BLOOD LOSS: None. INTRAOPERATIVE FINDINGS: As noted above. PROCEDURE: Patient tolerated the procedure well. No immediate postprocedure complications are noted. Patient is discharged in good condition. Discharge date 01/13/2019. Discharge diet: Regular. Discharge activity: Regular. 2 to 3-week follow-up to discuss findings. Patient is instructed to call the office or proceed to the emergency room should there be any further questions. Wait on the pathology. Due to the fact that the colon is probably prep I would recommend surveillance colonoscopy next year with alternative prep
== END 2019-01-13 09:25 | disposition home or self-care (01) ==
LOC: END 07:33
PROVIDERS: ATTEND Internal Medicine Gastroenterology
DX: Z12.11 Encounter for screening for malignant neoplasm of colon (principal); K52.9 Noninfective gastroenteritis and colitis, unspecified; K64.8 Other hemorrhoids; K29.50 Unspecified chronic gastritis without bleeding; K21.9 Gastro-esophageal reflux disease without esophagitis; E78.5 Hyperlipidemia, unspecified; J44.9 Chronic obstructive pulmonary disease, unspecified; I10 Essential (primary) hypertension; F17.210 Nicotine dependence, cigarettes, uncomplicated; Z86.718 Personal history of other venous thrombosis and embolism; Z89.519 Acquired absence of unspecified leg below knee; E66.9 Obesity, unspecified; Z68.31 Body mass index [BMI] 31.0-31.9, adult; Z79.899 Other long term (current) drug therapy; Z79.51 Long term (current) use of inhaled steroids
CPT/HCPCS: 43239; 45380; 88305 ×2; J2704; 813

== ENCOUNTER 2019-01-20 12:40 | Observation (INO) | payer MEDICAID ==
[2019-01-20 13:16] LABS: ABSOLUTE EOSINOPHILS # (AUTO) 0.1 10^3/uL (0.0-0.6); ABSOLUTE LYMPHOCYTES (AUTO) 1.6 10^3/uL (0.5-4.7); ABSOLUTE MONOCYTES (AUTO) 0.9 10^3/uL (0.1-1.4); ABSOLUTE NEUT (AUTO) 10.9 10^3/uL (1.7-8.2); BASOPHILS % (AUTO) 0.4 % (0-2); EOSINOPHILS % (AUTO) 0.8 % (0-6); HEMATOCRIT 36.9 % (36.0-47.0); HEMOGLOBIN 12.2 g/dL (12.0-15.5); LYMPHOCYTES % (AUTO) 12.1 % (13-45); MEAN CORPUSCULAR HEMOGLOBIN 29.7 pg (27.0-33.4); MEAN CORPUSCULAR HGB CONC 32.9 g/dL (32.0-36.0); MEAN CORPUSCULAR VOLUME 90 fl (80-97); MONOCYTES % (AUTO) 6.7 % (3-13); PLATELET COUNT 210 10^3/uL (150-450); RED CELL DISTRIBUTION WIDTH 14.9 % (11.5-14.0); TOTAL CELLS COUNTED % (AUTO) 100 %; WHITE BLOOD COUNT 13.6 10^3/uL (4.0-10.5)
--- NOTE | 2019-01-20 13:35 | RADIOLOGY REPORT (SQ) ---
EXAM DESCRIPTION: CHEST SINGLE VIEW COMPLETED DATE/TIME: 01/20/2019 1:22 pm REASON FOR STUDY: SOB COMPARISON: None. EXAM PARAMETERS: NUMBER OF VIEWS: One view. TECHNIQUE: Single frontal radiographic view of the chest acquired. RADIATION DOSE: NA LIMITATIONS: None. FINDINGS: LUNGS AND PLEURA: No opacities, masses or pneumothorax. No pleural effusion. MEDIASTINUM AND HILAR STRUCTURES: No masses. Contour normal. HEART AND VASCULAR STRUCTURES: Heart normal in size. Normal vasculature. BONES: No acute findings. HARDWARE: None in the chest. OTHER: No other significant finding. IMPRESSION: NO ACUTE RADIOGRAPHIC FINDING IN THE CHEST. TECHNICAL DOCUMENTATION: JOB ID: [id number] [employer]- All Rights Reserved Reading location - IP/workstation name: [email or web address]
[2019-01-20 13:36] LABS: ALBUMIN 4.1 g/dL (3.5-5.0); ALKALINE PHOSPHATASE 82 U/L (38-126); ANION GAP 12 (5-19); ASPARTATE AMINO TRANSFERASE 28 U/L (14-36); BILIRUBIN,DIRECT 0.4 mg/dL (0.0-0.4); BILIRUBIN,TOTAL 0.7 mg/dL (0.2-1.3); BLOOD UREA NITROGEN 4 mg/dL (7-20); CALCIUM 9.3 mg/dL (8.4-10.2); CARBON DIOXIDE 26 mmol/L (22-30); CHLORIDE 99 mmol/L (98-107); GLUCOSE 183 mg/dL (75-110); POTASSIUM 3.3 mmol/L (3.6-5.0); TOTAL PROTEIN 6.7 g/dL (6.3-8.2)
--- NOTE | 2019-01-20 13:53 | EKG REPORT ---
SEVERITY:- BORDERLINE ECG - SINUS TACHYCARDIA NONSPECIFIC DIFFUSE ST-T CHANGES LA ABNORMALITY : Confirmed by: Bishnu Phillips MD 20-Jan-2019 13:52:25
[2019-01-20 13:59] LABS: VENOUS BLOOD BASE EXCESS 0.6 mmol/L; VENOUS BLOOD HCO3 24.3 mmol/L (20-32); VENOUS BLOOD PCO2 36.1 mmHg (35-63); VENOUS BLOOD PH 7.45 (7.30-7.42)
--- NOTE | 2019-01-20 14:13 | ER Document Report ---
ED Respiratory Problem - General Chief Complaint: Respiratory Distress Stated Complaint: DIFFICULTY BREATHING Time Seen by Provider: 01/20/19 13:39 Primary Care Provider: CHELSI HERNANDEZ MD [Primary Care Provider] - Follow up as needed Notes: 53-year-old female with hypertension and recent diagnosis of COPD who is a 1 pack/day smoker for years presents to the emergency department by EMS acutely short of breath on a nonrebreather. Patient was initially 84% with EMS, had inspiratory and expiratory wheezes, T-max of 102 in the field, respiratory rate of 40. She was given DuoNeb, Solu-Medrol 125 mg IV, and magnesium 2 g IV. Patient came to us sinus tachycardic. She has complained of a cough for the last several days and has been doing home nebulizers for the past 4 days with no relief. She said her last cigarette was yesterday. She is had fever for several days, a productive cough, chest wall pain when she coughs, denies nausea or vomiting. TRAVEL OUTSIDE OF THE [place] IN LAST 30 DAYS: No - Related Data Allergies/Adverse Reactions: trimethoprim [From Bactrim] Allergy (Severe, Verified 01/11/19 12:38) SKIN FELT LIKE IT WAS ON FIRE clarithromycin [From Biaxin] Allergy (Unknown, Verified 01/11/19 12:38) hydrocodone [Hydrocodone] Allergy (Unknown, Verified 01/11/19 12:38) ketorolac tromethamine [From Toradol] Allergy (Unknown, Verified 01/11/19 12:38) Penicillins Allergy (Unknown, Verified 01/11/19 12:38) Anaphylaxis sulfamethoxazole [From Bactrim] Allergy (Unknown, Verified 01/11/19 12:38) SKIN FELT ON FIRE Past Medical History - Social History Smoking Status: Current Every Day Smoker Family History: Reviewed & Not Pertinent, Other Patient has suicidal ideation: No Patient has homicidal ideation: No - Past Medical History Cardiac Medical History: Reports: Hx Coronary Artery Disease - high chol , Hx DVT, Hx Hypercholesterolemia, Hx Hypertension Denies: Hx Heart Attack Pulmonary Medical History: Reports: Hx Bronchitis Denies: Hx Asthma, Hx COPD, Hx Pneumonia Neurological Medical History: Reports: Hx Cerebrovascular Accident - 2005, Hx Seizures - Renal/ Medical History: Denies: Hx Peritoneal Dialysis Musculoskeletal Medical History: Denies Hx Arthritis Psychiatric Medical History: Reports: Hx Anxiety - panic attacks, Hx Bipolar Disorder, Hx Depression Traumatic Medical History: Reports: Hx Fractures Past Surgical History: Reports: Hx Hysterectomy, Hx Orthopedic Surgery - rbka 2013, Hx Tubal Ligation, Hx Vascular Surgery - Right leg arterial clot removal - Immunizations Immunizations up to date: No Hx Diphtheria, Pertussis, Tetanus Vaccination: Yes Review of Systems - Review of Systems Constitutional: Diaphoresis EENT: No symptoms reported Cardiovascular: See HPI Respiratory: See HPI Gastrointestinal: See HPI Genitourinary: No symptoms reported Female Genitourinary: No symptoms reported Musculoskeletal: See HPI Skin: No symptoms reported Hematologic/Lymphatic: No symptoms reported Neurological/Psychological: No symptoms reported Physical Exam - Vital signs Vitals: Resp BP Pulse Ox 31 H 128/80 H 95 01/20/19 13:00 01/20/19 13:00 01/20/19 13:00 - Notes Notes: PHYSICAL EXAMINATION: Reviewed vital signs and charting by RN GENERAL: Alert, interacts well. No acute distress. HEAD: Normocephalic, atraumatic. EYES: Pupils equal and round. Extraocular movements intact. ENT: Oral mucosa moist, tongue midline. NECK: Full range of motion. Trachea midline. LUNGS: Rhonchi heard throughout all lung echavarria with some mild inspiratory wheezing HEART: Regular rhythm and mildly sinus tachycardic. No murmur ABDOMEN: soft, non-tender. No distention. Bowel sounds present EXTREMITIES: Moves all 4 extremities spontaneously. Right BKA present secondary to a blood clot PSYCH: Normal affect, normal mood. SKIN: Warm, dry, normal turgor. No rashes or lesions noted. Course - Re-evaluation Re-evalutation: 01/20/19 14:15 On initial evaluation patient was speaking in full sentences in no acute respiratory distress, on 3 L with O2 saturation of 93%. Patient not previously ever on oxygen before. VBG showed a pH of 7.45 and a PCO2 of 36. Patient with a leukocytosis of 13,600 but patient has been coughing constantly so unclear if that is due to demargination or an infectious process. Chest x-ray was done which did not show any evidence of focal consolidation or pulmonary infiltrate. I have placed a call to the hospitalist and I am awaiting a callback. 01/20/19 14:16 01/20/19 14:[address] Pate, hospitalist, who accepted the patient for full admission to the telemetry floor. - Vital Signs Vital signs: Temp Pulse Resp BP Pulse Ox 97.8 F 31 H 128/80 H 95 01/20/19 13:36 01/20/19 13:00 01/20/19 13:00 01/20/19 13:10 - Laboratory Result Diagrams: 01/20/19 13:00 01/20/19 13:00 Laboratory results interpreted by me: 01/20/19 01/20/19 01/20/19 13:00 13:00 13:08 WBC 13.6 H RDW 14.9 H Lymph % (Auto) 12.1 L Absolute Neuts (auto) 10.9 H Seg Neutrophils % 80.0 H VBG pH 7.45 H Sodium 136.6 L Potassium 3.3 L BUN 4 L Glucose 183 H Discharge - Discharge Clinical Impression: COPD exacerbation Condition: Stable Disposition: ADMITTED INPATIENT Admitting Provider: Kat (Hospitalist) Unit Admitted: Telemetry Referrals: CHELSI HERNANDEZ MD [Primary Care Provider] - Follow up as needed
[2019-01-20] MEDS ORDERED: OXYCODONE-ACETAMINOPHEN 5-325 MG TABLET PO ONE (14:22)
[2019-01-20] MEDS ORDERED: ACETAMINOPHEN 325 MG TABLET PO PRN (15:10)
[2019-01-20] MEDS ORDERED: POTASSIUM CHLORIDE 10 MEQ CAPSULE.ER PO ONE (15:11)
[2019-01-20] MEDS ORDERED: IPRATROPIUM/ALBUTEROL 0.5-2.5 MG/3 ML AMPUL NEB SCH (15:15)
[2019-01-20] MEDS ORDERED: AZITHROMYCIN 250 MG TABLET PO SCH (15:15)
[2019-01-20] MEDS: METHYLPREDNISOLONE INJ 40 MG/1 ML SDV IV SCH ×2 (15:32→22:30)
[2019-01-20] MEDS: NICOTINE 21 MG/24 HR PATCH.TD24 TD SCH (15:43)
--- NOTE | 2019-01-20 17:15 | PDOC H&P ---
History of Present Illness Admission Date/PCP: CHELSI HERNANDEZ MD Patient complains of: Cough, wheezing History of Present Illness: ROSANGELA MUELLER is a 53 year old female with a past medical history of COPD not on home O2, history of DVT on Xarelto, PVD, prior right BKA, GERD, history of CVA and hypertension who presented with cough, wheezing and shortness of breath. Patient says that 1 of his roommates was recently diagnosed with pneumonia but was still having some bouts of coughing at home. She says that in the past 4 days she has been having progressively productive cough and greenish sputum, associated with fever 102.1 earlier today. She says she also had progressively worsening shortness of breath and wheezing at home. She called EMS due to worsening shortness of breath today and was given magnesium, breathing treatments. She also received steroids. She was initially hypoxic at 84% on room air. She says that she did get relief from mention treatments. Upon encounter, she appears comfortable and is saturating well on 3 L of nasal ca nnula. She has significant bilateral wheezing upon examination. She says she still smokes but is no did remain to quit smoking. Past Medical History Cardiac Medical History: Reports: Coronary Artery Disease - high chol , DVT, Hyperlipidema, Hypertension Denies: Myocardial Infarction Pulmonary Medical History: Reports: Bronchitis Denies: Asthma, Chronic Obstructive Pulmonary Disease (COPD), Pneumonia Neurological Medical History: Reports: Seizures - Musculoskeltal Medical History: Denies: Arthritis Psychiatric Medical History: Reports: Bipolar Disorder, Depression Hematology: Denies: Anemia Past Surgical History Past Surgical History: Reports: Amputation - R BKA 5 years ago, Hysterectomy, Orthopedic Surgery - 2013, Tubal Ligation, Vascular Surgery - Right leg arterial clot removal Social History Smoking Status: Current Every Day Smoker Frequency of Alcohol Use: None Hx Recreational Drug Use: No Drugs: None Family History Family History: Reviewed & Not Pertinent, Other Parental Family History Reviewed: Yes - No premature CAD Children Family History Reviewed: No Sibling(s) Family History Reviewed.: No Medication/Allergy Allergies/Adverse Reactions: trimethoprim [From Bactrim] Allergy (Severe, Verified 01/20/19 15:52) SKIN FELT LIKE IT WAS ON FIRE clarithromycin [From Biaxin] Allergy (Unknown, Verified 01/20/19 15:52) hydrocodone [Hydrocodone] Allergy (Unknown, Verified 01/20/19 15:52) ketorolac tromethamine [From Toradol] Allergy (Unknown, Verified 01/20/19 15:52) Penicillins Allergy (Unknown, Verified 01/20/19 15:52) Anaphylaxis sulfamethoxazole [From Bactrim] Allergy (Unknown, Verified 01/20/19 15:52) SKIN FELT ON FIRE Review of Systems All systems: reviewed and no additional remarkable complaints except as stated - As mentioned in HPI Physical Exam Vital Signs: Temp Pulse Resp BP Pulse Ox 97.8 F 31 H 128/80 H 95 01/20/19 13:36 01/20/19 13:00 01/20/19 13:00 01/20/19 13:10 General appearance: PRESENT: no acute distress, well-developed, well-nourished Head exam: PRESENT: atraumatic, normocephalic Eye exam: PRESENT: conjunctiva pink, EOMI, PERRLA. ABSENT: scleral icterus Ear exam: PRESENT: normal external ear exam Mouth exam: PRESENT: moist, tongue midline Neck exam: ABSENT: carotid bruit, JVD, lymphadenopathy, thyromegaly Respiratory exam: PRESENT: rhonchi, wheezes. ABSENT: rales Cardiovascular exam: PRESENT: RRR. ABSENT: diastolic murmur, rubs, systolic murmur Pulses: PRESENT: normal dorsalis pedis pul GI/Abdominal exam: PRESENT: normal bowel sounds, soft. ABSENT: distended, guarding, mass, organolmegaly, rebound, tenderness Rectal exam: PRESENT: deferred Musculoskeletal exam: PRESENT: other - Right BKA stump Neurological exam: PRESENT: alert, awake, oriented to person, oriented to place, oriented to time, oriented to situation, CN II-XII grossly intact. ABSENT: motor sensory deficit Results Laboratory Results: 01/20/19 13:00 01/20/19 13:00 01/20/19 01/20/19 01/20/19 13:00 13:00 13:08 WBC 13.6 H RBC 4.10 Hgb 12.2 Hct 36.9 MCV 90 MCH 29.7 MCHC 32.9 RDW 14.9 H Plt Count 210 Seg Neutrophils % 80.0 H VBG pH 7.45 H VBG pCO2 36.1 VBG HCO3 24.3 VBG Base Excess 0.6 Sodium 136.6 L Potassium 3.3 L Chloride 99 Carbon Dioxide 26 Anion Gap 12 BUN 4 L Creatinine 0.52 Est GFR ( Amer) > 60 Glucose 183 H Calcium 9.3 Total Bilirubin 0.7 AST 28 Alkaline Phosphatase 82 Total Protein 6.7 Albumin 4.1 Impressions: Chest X-Ray 01/20/19 12:44 IMPRESSION: NO ACUTE RADIOGRAPHIC FINDING IN THE CHEST. Assessment and Plan - Diagnosis (1) Acute respiratory failure with hypoxia Is this a current diagnosis for this admission?: Yes Plan: Secondary to COPD exacerbation. Currently saturating well on nasal cannula at 3 L. (2) COPD exacerbation Is this a current diagnosis for this admission?: Yes Plan: Start IV Solu-Medrol, scheduled breathing treatments and levofloxacin. (3) History of DVT (deep vein thrombosis) Is this a current diagnosis for this admission?: Yes Plan: Resume Xarelto. (4) Hypertension Is this a current diagnosis for this admission?: Yes Plan: Resume home meds. (5) PVD (peripheral vascular disease) Is this a current diagnosis for this admission?: Yes (6) GERD (gastroesophageal reflux disease) Is this a current diagnosis for this admission?: Yes (7) Tobacco abuse Is this a current diagnosis for this admission?: Yes Plan: Counseled in length. Patient does say that she is determined to quit smoking now. Will give her nicotine patch. - Time Time Spent with patient: 25-34 minutes
--- NOTE | 2019-01-20 17:17 | ADVANCED CARE ---
- Diagnosis (1) Acute respiratory failure with hypoxia Diagnosis Current: Yes (2) COPD exacerbation Diagnosis Current: Yes (3) History of DVT (deep vein thrombosis) Diagnosis Current: Yes (4) Hypertension Diagnosis Current: Yes (5) PVD (peripheral vascular disease) Diagnosis Current: Yes (6) Tobacco abuse Diagnosis Current: Yes Resuscitation Status: Full Code Discussion: Discussed with patient. She says she is a full code and she prefers chest compressions, defibrillation and mechanical ventilation if the need arises. She says that her partner, Stephon Garcia is her surrogate medical decision maker. She says that they have been living for almost 20 years.
[2019-01-20] MEDS: LEVOFLOXACIN 750 MG TABLET PO SCH (17:25)
[2019-01-20] MEDS: PREGABALIN 75 MG CAPSULE PO SCH (17:25)
[2019-01-20] MEDS: IPRATROPIUM/ALBUTEROL 0.5-2.5 MG/3 ML AMPUL NEB SCH (19:44)
[2019-01-20] MEDS: GUAIFENESIN SYRP 200 MG/10 ML UDC PO PRN (22:30)
[2019-01-20] MEDS ORDERED: ZOLPIDEM TARTRATE 5 MG TABLET PO ONE (23:15)
[2019-01-21] MEDS: IPRATROPIUM/ALBUTEROL 0.5-2.5 MG/3 ML AMPUL NEB SCH ×7 (00:13→23:36)
[2019-01-21 01:07] LABS: APPEARANCE,URINE CLEAR; BILIRUBIN,URINE NEGATIVE (NEGATIVE); COLOR,URINE YELLOW; GLUCOSE, URINE 150 mg/dL (NEGATIVE); KETONES,URINE NEGATIVE (NEGATIVE); LEUKOCYTE ESTERASE,URINE NEGATIVE (NEGATIVE); NITRITE,URINE NEGATIVE (NEGATIVE); PROTEIN,URINE NEGATIVE (NEGATIVE); URINE SPECIFIC GRAVITY 1.014; UROBILINOGEN,URINE NEGATIVE mg/dL (<2.0)
[2019-01-21] MEDS: GUAIFENESIN SYRP 200 MG/10 ML UDC PO PRN ×3 (04:41→22:35)
[2019-01-21] MEDS: METHYLPREDNISOLONE INJ 40 MG/1 ML SDV IV SCH ×3 (06:37→22:32)
[2019-01-21 08:26] LABS: HEMATOCRIT 36.9 % (36.0-47.0); HEMOGLOBIN 12.1 g/dL (12.0-15.5); MEAN CORPUSCULAR HEMOGLOBIN 29.4 pg (27.0-33.4); MEAN CORPUSCULAR HGB CONC 32.8 g/dL (32.0-36.0); MEAN CORPUSCULAR VOLUME 90 fl (80-97); PLATELET COUNT 197 10^3/uL (150-450); RED BLOOD COUNT 4.11 10^6/uL (3.72-5.28); RED CELL DISTRIBUTION WIDTH 14.7 % (11.5-14.0); WHITE BLOOD COUNT 17.8 10^3/uL (4.0-10.5)
[2019-01-21 08:45] LABS: ABSOLUTE LYMPHOCYTES# (MANUAL) 1.6 10^3/uL (0.5-4.7); ABSOLUTE MONOCYTES # (MANUAL) 0.4 10^3/uL (0.1-1.4); ANION GAP 10 (5-19); BASOPHILS % (MANUAL) 0 % (0-2); BLOOD UREA NITROGEN 10 mg/dL (7-20); CALCIUM 9.1 mg/dL (8.4-10.2); CARBON DIOXIDE 28 mmol/L (22-30); CHLORIDE 101 mmol/L (98-107); EOSINOPHILS % (MANUAL) 0 % (0-6); GLUCOSE 152 mg/dL (75-110); LYMPHOCYTES % (MANUAL) 9 % (13-45); MONOCYTES % (MANUAL) 2 % (3-13); SEGMENTED NEUTROPHILS % (MAN) 89 % (42-78); TOTAL CELLS COUNTED 100
[2019-01-21 08:46] LABS: ANISOCYTOSIS SLIGHT; PLATELET COMMENT ADEQUATE; TOXIC GRANULATION 1+
[2019-01-21 08:50] LABS: POTASSIUM 4.4 mmol/L (3.6-5.0)
[2019-01-21] MEDS ORDERED: (PENDING PHARMACY ID) (Zolpidem Tartrate [Ambien] 10 MG) PO PRN (08:53)
[2019-01-21] MEDS: NICOTINE 21 MG/24 HR PATCH.TD24 TD SCH (09:27)
[2019-01-21] MEDS: RIVAROXABAN 10 MG TABLET PO SCH (09:28)
[2019-01-21] MEDS: AMLODIPINE BESYLATE 10 MG TABLET PO SCH (09:28)
[2019-01-21] MEDS: PREGABALIN 75 MG CAPSULE PO SCH (09:28)
[2019-01-21] MEDS ORDERED: (PENDING PHARMACY ID) (Pregabalin [Lyrica] 200 MG) PO SCH (10:00)
[2019-01-21] MEDS: PREGABALIN 100 MG CAPSULE PO SCH ×2 (10:52→22:31)
--- NOTE | 2019-01-21 13:54 | PDOC PROGRESS REPORT ---
Subjective Progress Note for:: 01/21/19 Subjective:: ROSANGELA MUELLER is a 53 year old female with a past medical history of COPD not on home O2, history of DVT on Xarelto, PVD, prior right BKA, GERD, history of CVA and hypertension who presented with cough, wheezing and shortness of breath. She was admitted for COPD exacerbation. She did desaturate to the low 80s when she ambulated to the bathroom overnight. She is currently saturating well and comfortable on 5 L of nasal cannula. She says her shortness of breath has significantly improved today but she is not at her baseline yet. She still has bilateral wheezing. Reason For Visit: ACUTE HYPOXIC RESPIRATORY FAILURE,COPD EXACERBATIO Physical Exam Vital Signs: Temp Pulse Resp BP Pulse Ox 97.5 F 79 18 114/61 89 L 01/21/19 07:28 01/21/19 12:47 01/21/19 12:47 01/21/19 07:28 01/21/19 12:47 Intake & Output 01/20/19 01/21/19 01/22/19 06:59 06:59 06:59 Intake Total 1100 Balance 1100 Weight 185 lb 10.067 oz General appearance: PRESENT: no acute distress, well-developed, well-nourished Head exam: PRESENT: atraumatic, normocephalic Eye exam: PRESENT: conjunctiva pink, EOMI, PERRLA. ABSENT: scleral icterus Ear exam: PRESENT: normal external ear exam Mouth exam: PRESENT: moist, tongue midline Neck exam: ABSENT: carotid bruit, JVD, lymphadenopathy, thyromegaly Respiratory exam: PRESENT: rhonchi, wheezes. ABSENT: rales Cardiovascular exam: PRESENT: RRR. ABSENT: diastolic murmur, rubs, systolic murmur Pulses: PRESENT: normal dorsalis pedis pul GI/Abdominal exam: PRESENT: normal bowel sounds, soft. ABSENT: distended, guarding, mass, organolmegaly, rebound, tenderness Rectal exam: PRESENT: deferred Neurological exam: PRESENT: alert, awake, oriented to person, oriented to place, oriented to time, oriented to situation, CN II-XII grossly intact. ABSENT: motor sensory deficit Results Laboratory Results: 01/21/19 08:02 01/21/19 08:02 01/20/19 01/21/19 01/21/19 13:08 00:45 08:02 WBC 17.8 H RBC 4.11 Hgb 12.1 Hct 36.9 MCV 90 MCH 29.4 MCHC 32.8 RDW 14.7 H Plt Count 197 Seg Neutrophils % Not Reportable VBG pH 7.45 H VBG pCO2 36.1 VBG HCO3 24.3 VBG Base Excess 0.6 Sodium Potassium Chloride Carbon Dioxide Anion Gap BUN Creatinine Est GFR ( Amer) Glucose Calcium Urine Color YELLOW Urine Appearance CLEAR Urine pH 6.0 Ur Specific Meta 1.014 Urine Protein NEGATIVE Urine Glucose (UA) 150 H Urine Ketones NEGATIVE Urine Blood NEGATIVE Urine Nitrite NEGATIVE Ur Leukocyte Esterase NEGATIVE Urine WBC (Auto) 2 Urine RBC (Auto) 1 01/21/19 08:02 WBC RBC Hgb Hct MCV MCH MCHC RDW Plt Count Seg Neutrophils % VBG pH VBG pCO2 VBG HCO3 VBG Base Excess Sodium 139.2 Potassium 4.4 D Chloride 101 Carbon Dioxide 28 Anion Gap 10 BUN 10 Creatinine 0.42 L Est GFR ( Amer) > 60 Glucose 152 H Calcium 9.1 Urine Color Urine Appearance Urine pH Ur Specific Meta Urine Protein Urine Glucose (UA) Urine Ketones Urine Blood Urine Nitrite Ur Leukocyte Esterase Urine WBC (Auto) Urine RBC (Auto) Impressions: Chest X-Ray 01/20/19 12:44 IMPRESSION: NO ACUTE RADIOGRAPHIC FINDING IN THE CHEST. Assessment and Plan - Diagnosis (1) Acute respiratory failure with hypoxia Is this a current diagnosis for this admission?: Yes Plan: Secondary to COPD exacerbation. Currently saturating well on nasal cannula at 5 L. (2) COPD exacerbation Is this a current diagnosis for this admission?: Yes Plan: Continue solumedrol, scheduled breathing treatments and levofloxacin. (3) History of DVT (deep vein thrombosis) Is this a current diagnosis for this admission?: Yes Plan: Continue Xarelto. (4) Hypertension Is this a current diagnosis for this admission?: Yes Plan: Resume home meds. (5) Tobacco abuse Is this a current diagnosis for this admission?: Yes Plan: Counseled in length. Patient does say that she is determined to quit smoking now. On nicotine patch. (6) PVD (peripheral vascular disease) Is this a current diagnosis for this admission?: Yes
[2019-01-21] MEDS: IBUPROFEN 400 MG TABLET PO PRN ×2 (14:11→20:13)
[2019-01-21] MEDS: LEVOFLOXACIN 750 MG TABLET PO SCH (17:58)
[2019-01-21] MEDS ORDERED: (PENDING PHARMACY ID) (Trazodone Hcl [Desyrel] 300 MG) PO SCH (22:00)
[2019-01-21] MEDS ORDERED: ZOLPIDEM TARTRATE 5 MG TABLET PO SCH (22:00)
[2019-01-21] MEDS ORDERED: (PENDING PHARMACY ID) (Brexpiprazole [Rexulti] 3 MG) PO SCH (22:00)
[2019-01-21] MEDS: TRAZODONE HCL 50 MG TABLET PO SCH (22:29)
[2019-01-21] MEDS: ATORVASTATIN CALCIUM 40 MG TABLET PO SCH (22:31)
[2019-01-21] MEDS: AMITRIPTYLINE HCL 50 MG TABLET PO SCH (22:31)
[2019-01-21] MEDS: ZOLPIDEM TARTRATE 5 MG TABLET PO PRN (22:34)
[2019-01-22] MEDS: IPRATROPIUM/ALBUTEROL 0.5-2.5 MG/3 ML AMPUL NEB SCH ×6 (04:18→23:54)
[2019-01-22] MEDS: GUAIFENESIN SYRP 200 MG/10 ML UDC PO PRN ×3 (06:23→21:23)
[2019-01-22] MEDS: METHYLPREDNISOLONE INJ 40 MG/1 ML SDV IV SCH ×3 (06:23→23:18)
[2019-01-22] MEDS: NICOTINE 21 MG/24 HR PATCH.TD24 TD SCH (09:34)
[2019-01-22] MEDS: RIVAROXABAN 10 MG TABLET PO SCH (09:35)
[2019-01-22] MEDS: PREGABALIN 100 MG CAPSULE PO SCH ×2 (09:35→21:24)
[2019-01-22] MEDS: AMLODIPINE BESYLATE 10 MG TABLET PO SCH (09:35)
[2019-01-22] MEDS ORDERED: TRAMADOL HCL 50 MG TABLET PO PRN (09:53)
[2019-01-22] MEDS ORDERED: (PENDING PHARMACY ID) (Fluvoxamine Maleate [Fluvoxamine Maleate] 100 MG) PO SCH (10:00)
--- NOTE | 2019-01-22 13:41 | PDOC PROGRESS REPORT ---
Subjective Progress Note for:: 01/22/19 Subjective:: ROSANGELA MUELLER is a 53 year old female with a past medical history of COPD not on home O2, history of DVT on Xarelto, PVD, prior right BKA, GERD, history of CVA and hypertension who presented with cough, wheezing and shortness of breath. She was admitted for COPD exacerbation. 01/21: She did desaturate to the low 80s when she ambulated to the bathroom overnight. She is currently saturating well and comfortable on 5 L of nasal cannula. She says her shortness of breath has significantly improved today but she is not at her baseline yet. She still has bilateral wheezing. 01/22: She says she continues to gradually improve in terms of her shortness of breath. She has bilateral wheezing albeit slightly improved compared to yesterday. Reason For Visit: ACUTE HYPOXIC RESPIRATORY FAILURE,COPD EXACERBATIO Physical Exam Vital Signs: Temp Pulse Resp BP Pulse Ox 98.4 F 83 20 125/68 91 L 01/22/19 11:17 01/22/19 12:36 01/22/19 12:36 01/22/19 11:17 01/22/19 12:36 Intake & Output 01/21/19 01/22/19 01/23/19 06:59 06:59 06:59 Intake Total 1100 1075 476 Output Total 900 Balance 1100 175 476 Weight 185 lb 10.067 oz 195 lb 12.328 oz General appearance: PRESENT: no acute distress, well-developed, well-nourished Head exam: PRESENT: atraumatic, normocephalic Eye exam: PRESENT: conjunctiva pink, EOMI, PERRLA. ABSENT: scleral icterus Ear exam: PRESENT: normal external ear exam Mouth exam: PRESENT: moist, tongue midline Neck exam: ABSENT: carotid bruit, JVD, lymphadenopathy, thyromegaly Respiratory exam: PRESENT: rhonchi, wheezes. ABSENT: rales Cardiovascular exam: PRESENT: RRR. ABSENT: diastolic murmur, rubs, systolic murmur Pulses: PRESENT: normal dorsalis pedis pul GI/Abdominal exam: PRESENT: normal bowel sounds, soft. ABSENT: distended, guarding, mass, organolmegaly, rebound, tenderness Rectal exam: PRESENT: deferred Extremities exam: PRESENT: full ROM. ABSENT: calf tenderness, clubbing, pedal edema Neurological exam: PRESENT: alert, awake, oriented to person, oriented to place, oriented to time, oriented to situation, CN II-XII grossly intact. ABSENT: motor sensory deficit Results Laboratory Results: 01/21/19 08:02 01/21/19 08:02 Impressions: Chest X-Ray 01/20/19 12:44 IMPRESSION: NO ACUTE RADIOGRAPHIC FINDING IN THE CHEST. Assessment and Plan - Diagnosis (1) Acute respiratory failure with hypoxia Is this a current diagnosis for this admission?: Yes Plan: Secondary to COPD exacerbation. Currently saturating well on nasal cannula at 2 L. (2) COPD exacerbation Is this a current diagnosis for this admission?: Yes Plan: 01/21: Continue solumedrol, scheduled breathing treatments and levofloxacin. 01/22: DC antibiotics. (3) History of DVT (deep vein thrombosis) Is this a current diagnosis for this admission?: Yes Plan: Continue Xarelto. (4) Hypertension Is this a current diagnosis for this admission?: Yes Plan: Resumed home meds. (5) Tobacco abuse Is this a current diagnosis for this admission?: Yes Plan: Counseled in length. Patient does say that she is determined to quit smoking now. On nicotine patch. (6) PVD (peripheral vascular disease) Is this a current diagnosis for this admission?: Yes (7) Hypokalemia Is this a current diagnosis for this admission?: Yes Plan: Repleted.
--- NOTE | 2019-01-22 18:22 | EKG REPORT ---
SEVERITY:- ABNORMAL ECG - SINUS RHYTHM VENTRICULAR BIGEMINY : Confirmed by: Bishnu Phillips MD 22-Jan-2019 18:21:33
[2019-01-22] MEDS ORDERED: CALCIUM CARBONATE 500 MG TAB.CHEW PO PRN (20:30)
[2019-01-22] MEDS: AMITRIPTYLINE HCL 50 MG TABLET PO SCH (21:23)
[2019-01-22] MEDS: TRAZODONE HCL 50 MG TABLET PO SCH (21:23)
[2019-01-22] MEDS: ATORVASTATIN CALCIUM 40 MG TABLET PO SCH (21:24)
[2019-01-22] MEDS: ZOLPIDEM TARTRATE 5 MG TABLET PO PRN (21:29)
[2019-01-23] MEDS: GUAIFENESIN SYRP 200 MG/10 ML UDC PO PRN (03:15)
[2019-01-23] MEDS: IBUPROFEN 400 MG TABLET PO PRN (03:15)
[2019-01-23] MEDS: IPRATROPIUM/ALBUTEROL 0.5-2.5 MG/3 ML AMPUL NEB SCH ×2 (04:12→08:00)
[2019-01-23] MEDS: METHYLPREDNISOLONE INJ 40 MG/1 ML SDV IV SCH (06:18)
[2019-01-23] MEDS ORDERED: MAGNESIUM CITRATE 296 ML BOTTLE PO ONE (09:45)
[2019-01-23] MEDS: AMLODIPINE BESYLATE 10 MG TABLET PO SCH (09:52)
[2019-01-23] MEDS: NICOTINE 21 MG/24 HR PATCH.TD24 TD SCH (09:52)
[2019-01-23] MEDS: PREGABALIN 100 MG CAPSULE PO SCH (09:52)
[2019-01-23] MEDS: RIVAROXABAN 10 MG TABLET PO SCH (09:52)
[2019-01-23] MEDS ORDERED: (PENDING PHARMACY ID) (Alendronate Sodium [Fosamax 70 Mg Tablet] 70 MG) PO SCH (10:00)
[2019-01-23 11:15] VITALS: BP 113/77
--- NOTE | 2019-01-23 17:01 | PDOC DISCHARGE SUMMARY ---
General - Admit/Disc Date/PCP Admission Date/Primary Care Provider: 01/20/19 16:13 CHELSI HERNANDEZ MD Discharge Date: 01/23/19 - Discharge Diagnosis (1) Acute respiratory failure with hypoxia Is this a current diagnosis for this admission?: Yes (2) COPD exacerbation Is this a current diagnosis for this admission?: Yes (3) History of DVT (deep vein thrombosis) Is this a current diagnosis for this admission?: Yes (4) Hypertension Is this a current diagnosis for this admission?: Yes (5) Tobacco abuse Is this a current diagnosis for this admission?: Yes (6) PVD (peripheral vascular disease) Is this a current diagnosis for this admission?: Yes (7) Hypokalemia Is this a current diagnosis for this admission?: Yes - Additional Information Resuscitation Status: Full Code Discharge Diet: Regular Discharge Activity: Activity As Tolerated Prescriptions: Prednisone [Deltasone 20 mg Tablet] 20 mg PO BID #5 tablet Ipratropium/Albuterol Sulfate [Duoneb 3 ml Ampul] 3 ml NEB RTQID #30 Levofloxacin [Levaquin] 500 mg PO DAILY #5 tablet Nicotine [Nicoderm 21 mg/24 Hr Transderm Patch] 1 each TD DAILY #30 patch.td24 Tiotropium [place] [Spiriva Handihaler 5 Cap/Kit (18 Mcg/Cap)] 5 cap IH DAILY #30 kit Benzonatate [Tessalon Perles 100 mg Capsule] 100 mg PO Q12 #10 capsule Home Medications: Albuterol Sulfate [Proair HFA Inhalation Aerosol 8.5 gm MDI] 2 puff IH Q6 01/20/19 Alendronate Sodium [Fosamax 70 mg Tablet] 70 mg PO MO@1000 01/20/19 Amitriptyline HCl [Elavil 50 mg Tablet] 50 mg PO QHS 01/20/19 Amlodipine Besylate [Norvasc 10 mg Tablet] 10 mg PO DAILY 01/20/19 Atorvastatin Calcium [Lipitor 40 mg Tablet] 40 mg PO QHS 01/20/19 Brexpiprazole [Rexulti] 3 mg PO QHS 01/20/19 Budesonide/Formoterol Fumarate [Symbicort HFA 160-4.5 mcg Inhaler 6 gm] 2 puff IH DAILY 01/20/19 Diclofenac Sodium [Voltaren] 100 gm TP QID 01/20/19 Ergocalciferol (Vitamin D2) [Drisdol 50,000 unit (1.25MG) Capsule] 50,000 unit PO QUINTANILLA@1000 01/20/19 Fluvoxamine Maleate 100 mg PO DAILY 01/20/19 Omeprazole 40 mg PO DAILY 01/20/19 Pregabalin [Lyrica] 200 mg PO Q12 01/20/19 Rivaroxaban [Xarelto] 20 mg PO DAILY 01/20/19 Trazodone HCl [Desyrel] 300 mg PO QHS 01/20/19 Zolpidem Tartrate [Ambien] 10 mg PO HSP PRN 01/20/19 Benzonatate [Tessalon Perles 100 mg Capsule] 100 mg PO Q12 #10 capsule 01/23/19 Ipratropium/Albuterol Sulfate [Duoneb 3 ml Ampul] 3 ml NEB RTQID #30 01/23/19 Levofloxacin [Levaquin] 500 mg PO DAILY #5 tablet 01/23/19 Nicotine [Nicoderm 21 mg/24 Hr Transderm Patch] 1 each TD DAILY #30 patch.td24 01/23/19 Prednisone [Deltasone 20 mg Tablet] 20 mg PO BID #5 tablet 01/23/19 Tiotropium [place] [Spiriva Handihaler 5 Cap/Kit (18 Mcg/Cap)] 5 cap IH DAILY #30 kit 01/23/19 History of Present Illness History of Present Illness: ROSANGELA MUELLER is a 53 year old female with a past medical history of COPD not on home O2, history of DVT on Xarelto, PVD, prior right BKA, GERD, history of CVA and hypertension who presented with cough, wheezing and shortness of breath. Patient says that 1 of his roommates was recently diagnosed with pneumonia but was still having some bouts of coughing at home. She says that in the past 4 days she has been having progressively productive cough and greenish sputum, associated with fever 102.1 earlier today. She says she also had progressively worsening shortness of breath and wheezing at home. She called EMS due to wo rsening shortness of breath today and was given magnesium, breathing treatments. She also received steroids. She was initially hypoxic at 84% on room air. She says that she did get relief from mention treatments. Upon encounter, she appears comfortable and is saturating well on 3 L of nasal cannula. She has significant bilateral wheezing upon examination. She says she still smokes but is no did remain to quit smoking. Hospital Course Hospital Course: This is a 53 year old female with a past medical history of COPD not on home O2, history of DVT on Xarelto, PVD, prior right BKA, GERD, history of CVA and hypertension who presented with cough, wheezing and shortness of breath. She was admitted for COPD exacerbation. He was started on IV steroids, scheduled breathing treatments and levofloxacin. She gradually improved. She initially qualified for home O2 however on day of discharge upon reassessment of her need for home O2, she did not require supplemental oxygen. She has expressed a strong determination to completely stop smoking. She will continue her Symbicort. Spiriva was also added to her regimen. She will also be discharged on duo nebs and prednisone was assisted with getting a nebulizer at home. Her sputum culture grew Streptococcus pneumoniae and she will be discharged on 5 more days of levofloxacin as well. Physical Exam Vital Signs: Temp Pulse Resp BP Pulse Ox 97.3 F 77 18 113/77 93 01/23/19 11:14 01/23/19 11:14 01/23/19 11:14 01/23/19 11:14 01/23/19 11:14 Intake & Output 01/22/19 01/23/19 01/24/19 06:59 06:59 06:59 Intake Total 1075 976 Output Total 900 Balance 175 976 Weight 195 lb 12.328 oz 199 lb 8.293 oz General appearance: PRESENT: no acute distress, well-developed, well-nourished Head exam: PRESENT: atraumatic, normocephalic Eye exam: PRESENT: conjunctiva pink, EOMI, PERRLA. ABSENT: scleral icterus Ear exam: PRESENT: normal external ear exam Mouth exam: PRESENT: moist, tongue midline Neck exam: ABSENT: carotid bruit, JVD, lymphadenopathy, thyromegaly Respiratory exam: PRESENT: clear to auscultation [place]. ABSENT: rales, rhonchi, wheezes Cardiovascular exam: PRESENT: RRR. ABSENT: diastolic murmur, rubs, systolic murmur Pulses: PRESENT: normal dorsalis pedis pul GI/Abdominal exam: PRESENT: normal bowel sounds, soft. ABSENT: distended, guarding, mass, organolmegaly, rebound, tenderness Rectal exam: PRESENT: deferred Extremities exam: PRESENT: full ROM. ABSENT: calf tenderness, clubbing, pedal edema Neurological exam: PRESENT: alert, awake, oriented to person, oriented to place, oriented to time, oriented to situation, CN II-XII grossly intact. ABSENT: motor sensory deficit Results Laboratory Results: 01/21/19 08:02 01/21/19 08:02 Impressions: Chest X-Ray 01/20/19 12:44 IMPRESSION: NO ACUTE RADIOGRAPHIC FINDING IN THE CHEST. Qualifiers - * PATIENT BEING DISCHARGED WITH ANY OF THE FOLLOWING DIAGNOSIS: No Acute Heart Failure - Is this a Heart Failure Patient?: No LVEF < 40%?: No- if no continue to question #3 3. Anticoagulant therapy for permanect/persistent/paraoxysmal Afib or Aflutter: N/A
== END 2019-01-23 11:45 | disposition home or self-care (01) ==
LOC: ER 12:40 → EH 16:13 → 5 18:00
PROVIDERS: ADMIT Internal Medicine; ATTEND Internal Medicine
DX: J96.01 Acute respiratory failure with hypoxia (principal); J44.1 Chronic obstructive pulmonary disease with (acute) exacerbation; Z86.718 Personal history of other venous thrombosis and embolism; I10 Essential (primary) hypertension; I73.9 Peripheral vascular disease, unspecified; E87.6 Hypokalemia; R50.9 Fever, unspecified; R84.5 Abnormal microbiological findings in specimens from respiratory organs and thorax; K21.9 Gastro-esophageal reflux disease without esophagitis; F17.210 Nicotine dependence, cigarettes, uncomplicated; I25.10 Atherosclerotic heart disease of native coronary artery without angina pectoris; R61 Generalized hyperhidrosis; D72.829 Elevated white blood cell count, unspecified; Z89.511 Acquired absence of right leg below knee; Z79.899 Other long term (current) drug therapy; Z86.73 Personal history of transient ischemic attack (TIA), and cerebral infarction without residual deficits; Z20.89 Contact with and (suspected) exposure to other communicable diseases
CPT/HCPCS: 93005 ×2; 94640 ×6; 99285; 96374; 36415 ×2; 87070; 87205; 85025 ×2; 87077; 80048; 80053; 81001; 87186; 82803; 71045; 94799 ×2; 93010 ×2; 94667; 94668 ×2; G0378 ×5; J3490 ×31; J2920 ×4; J7620 ×4

== ENCOUNTER 2019-10-28 14:44 | Emergency (ER) | payer MEDICAID ==
[2019-10-28 14:49] VITALS: BP 134/92
--- NOTE | 2019-10-28 15:09 | ER Document Report ---
HPI - HPI Patient complains to provider of: Right shoulder and elbow pain Time Seen by Provider: 10/28/19 15:06 Onset: Just prior to arrival Pain Level: 4 Context: This 54-year-old female presented to the emergency room today stating that she fell today after tripping over a step she has discomfort to her right shoulder and elbow. - REPRODUCTIVE Reproductive: DENIES: : - MUSCULOSKELETAL Musculoskeletal: REPORTS: Extremity pain Past Medical History - Social History Smoking Status: Current Every Day Smoker Frequency of alcohol use: Occasional Drug Abuse: None Family History: Reviewed & Not Pertinent, Other Patient has homicidal ideation: No - Past Medical History Cardiac Medical History: Reports: Hx Coronary Artery Disease - high chol , Hx DVT, Hx Hypercholesterolemia, Hx Hypertension Denies: Hx Heart Attack Pulmonary Medical History: Reports: Hx Bronchitis Denies: Hx Asthma, Hx COPD, Hx Pneumonia Neurological Medical History: Reports: Hx Cerebrovascular Accident - 2005, Hx Seizures - Renal/ Medical History: Denies: Hx Peritoneal Dialysis Musculoskeletal Medical History: Denies Hx Arthritis Psychiatric Medical History: Reports: Hx Anxiety - panic attacks, Hx Bipolar Disorder, Hx Depression Traumatic Medical History: Reports: Hx Fractures Past Surgical History: Reports: Hx Hysterectomy, Hx Orthopedic Surgery - rbka 2013, Hx Tubal Ligation, Hx Vascular Surgery - Right leg arterial clot removal - Immunizations Immunizations up to date: No Hx Diphtheria, Pertussis, Tetanus Vaccination: Yes Vertical Provider Document - INFECTION CONTROL TRAVEL OUTSIDE OF THE [place] IN LAST 30 DAYS: No Course - Vital Signs Vital signs: Temp Pulse Resp BP Pulse Ox 98.6 F 105 H 16 134/92 H 95 10/28/19 15:03 10/28/19 14:48 10/28/19 14:48 10/28/19 14:48 10/28/19 14:48 - Diagnostic Test Radiology results interpreted by me: 10/28/19 16:20 Elbow X-Ray 10/28/19 15:06 IMPRESSION: NO FRACTURE. Shoulder X-Ray 10/28/19 15:06 IMPRESSION: Nondisplaced fracture greater tuberosity. Procedures - Immobilization Right Upper Arm Time completed: 16:21 Immobilizer type: Sling Performed by: RN Post-Proc Neuro Vasc Exam: Normal Alignment checked and good: Yes Discharge - Discharge Clinical Impression: Greater tuberosity of humerus fracture Qualifiers: Encounter type: initial encounter Fracture type: closed Fracture alignment: nondisplaced Laterality: right Qualified Code(s): S42.254A - Nondisplaced fracture of greater tuberosity of right humerus, initial encounter for closed fracture Condition: Good Disposition: HOME, SELF-CARE Instructions: Oral Narcotic Medication ([facility]), Sling as Treatment ([facility]) Additional Instructions: Must follow-up with orthopedics 3 to 5 days increase fluid intake rest return for any change worsening condition. Prescriptions: Tramadol HCl [Ultram] 50 mg PO Q4 PRN #30 tablet PRN Reason: Referrals: CHELSI HERNANDEZ MD [Primary Care Provider] - Follow up as needed ALLIE DIETRICH MD [ACTIVE PROVISIONAL STAFF] - Follow up as needed
--- NOTE | 2019-10-28 15:48 | RADIOLOGY REPORT (SQ) ---
EXAM DESCRIPTION: SHOULDER RIGHT 2 OR MORE VIEWS IMAGES COMPLETED DATE/TIME: 10/28/2019 3:33 pm REASON FOR STUDY: pain COMPARISON: None. NUMBER OF VIEWS: Three views. TECHNIQUE: Internal rotation, external rotation, and Y view images acquired of the right shoulder. LIMITATIONS: None. FINDINGS: MINERALIZATION: Normal. BONES: Nondisplaced fracture through the greater tuberosity. JOINTS: No dislocation. VISUALIZED LUNGS AND RIBS: No pneumothorax. No rib fracture. SOFT TISSUES: No radiopaque foreign body. OTHER: No other significant finding. IMPRESSION: Nondisplaced fracture greater tuberosity. TECHNICAL DOCUMENTATION: JOB ID: [id number] 2010 [employer]- All Rights Reserved Reading location - IP/workstation name: [email or web address]
--- NOTE | 2019-10-28 15:54 | RADIOLOGY REPORT (SQ) ---
EXAM DESCRIPTION: ELBOW RIGHT OVER 2 VIEWS IMAGES COMPLETED DATE/TIME: 10/28/2019 3:33 pm REASON FOR STUDY: pain COMPARISON: None. EXAM PARAMETERS: NUMBER OF VIEWS: Three views. TECHNIQUE: AP, lateral and oblique radiographic images acquired of the right elbow. LIMITATIONS: None. FINDINGS: MINERALIZATION: Normal. BONES: No acute fracture or dislocation. No worrisome bone lesions. JOINTS: No effusion. SOFT TISSUES: No significant soft tissue swelling. No radiopaque foreign body. OTHER: No other significant finding. IMPRESSION: NO FRACTURE. TECHNICAL DOCUMENTATION: JOB ID: [id number] 2010 [employer]- All Rights Reserved Reading location - IP/workstation name: [email or web address]
== END 2019-10-28 16:31 | disposition home or self-care (01) ==
LOC: ER 14:44
DX: S42.254A Nondisplaced fracture of greater tuberosity of right humerus, initial encounter for closed fracture (principal); M25.511 Pain in right shoulder; M25.521 Pain in right elbow; W18.09XA Striking against other object with subsequent fall, initial encounter; F17.200 Nicotine dependence, unspecified, uncomplicated; I25.10 Atherosclerotic heart disease of native coronary artery without angina pectoris; I10 Essential (primary) hypertension
CPT/HCPCS: 99283